=== PATIENT | male | born 1985 | race American Indian/Alaskan Native ===

== ENCOUNTER 2019-06-21 22:58 | Emergency (ER) | payer SELFPAY ==
[2019-06-21 23:14] VITALS: BP 144/79
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
== END 2019-06-22 02:21 | disposition home or self-care (01) ==
LOC: ED 22:58
DX: H10.9 Unspecified conjunctivitis (principal); Z79.899 Other long term (current) drug therapy

== ENCOUNTER 2020-01-01 18:40 | Emergency (ER) | payer SELFPAY ==
[2020-01-01] MEDS ORDERED: ACETAMINOPHEN 500 MG TAB PO ONE (19:30)
[2020-01-01] MEDS ORDERED: DIPHtheria,PERTUSSIS(ACELL),TETANUS VACCINE/PF 0.5 ML VIAL IM ONE (19:30)
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
[2020-01-01 22:23] VITALS: BP 120/66
== END 2020-01-01 22:33 | disposition home or self-care (01) ==
LOC: ED 18:40
DX: S01.01XA Laceration without foreign body of scalp, initial encounter (principal); S60.511A Abrasion of right hand, initial encounter; X99.8XXA Assault by other sharp object, initial encounter; Y93.89 Activity, other specified; Y92.89 Other specified places as the place of occurrence of the external cause; Y99.8 Other external cause status
CPT/HCPCS: 70450; 90471; 90715

== ENCOUNTER 2020-01-15 02:17 | Emergency (ER) | payer SELFPAY ==
[2020-01-15 02:32] VITALS: BP 164/62
--- NOTE | 2020-01-15 04:56 | Emergency Department Report ---
Suture/Staple Removal - [facility] Chief Complaint: Laceration/Recheck/Suture Stated Complaint: STAPLE REMOVAL Time Seen by Provider: 01/15/20 04:51 Wound Location: Patient presents for frontal scalp staple removal x3 , placed 13 dayS ago ED Review of Systems ROS: Stated complaint: STAPLE REMOVAL Other details as noted in HPI Constitutional: denies: chills, fever Eyes: denies: eye pain, eye discharge, vision change ENT: denies: ear pain, throat pain Respiratory: denies: cough, shortness of breath, wheezing Cardiovascular: denies: chest pain, palpitations Endocrine: no symptoms reported Gastrointestinal: denies: abdominal pain, nausea, diarrhea Genitourinary: denies: urgency, dysuria Musculoskeletal: denies: back pain, joint swelling, arthralgia Skin: other (nadeem intact x 3 front scalp ) Neurological: denies: headache, weakness, paresthesias Psychiatric: denies: anxiety, depression Hematological/Lymphatic: denies: easy bleeding, easy bruising ED Past Medical Hx - Past Medical History Previous Medical History?: Yes Additional medical history: Morbid Obesity - Surgical History Past Surgical History?: No - Social History Smoking Status: Never Smoker Substance Use Type: Marijuana - Medications Home Medications: Home Medications Medication Instructions Recorded Confirmed Last Taken Type Ketotifen Fumarate [Zaditor] 2 drop OP BID PRN #5 ml 06/22/19 Unknown Rx Polymyxin B Sulf/Trimethoprim 2 drop OP Q3H 10 Days #10 ml 06/22/19 Unknown Rx [Polytrim Eye Drops] Ibuprofen [Motrin 800 MG tab] 800 mg PO Q8HR PRN #20 tablet 01/01/20 Unknown Rx cephALEXin [Keflex] 500 mg PO Q12HR #20 cap 01/01/20 Unknown Rx Suture Removal Exam - Exam General: Vital signs noted. No distress. Alert and acting appropriately. Wound: No Pathologic Erythema, No Tenderness, No Drainage, No Pus, No Wound Dehiscence Other Systems: All other systems reviewed and are unremarkable. ED Course Vital Signs 01/15/20 02:21 Temperature 98.0 F Pulse Rate 81 Respiratory 18 Rate Blood Pressure 164/62 O2 Sat by Pulse 92 Oximetry ED Recheck MDM - Medical Decision Making sutures removed x 3 intact, wound healed , edges well approximated, no symptoms of infection, pt given site care instructions, will follow up with pcp as needed, pt dc'd to home in stable condition at this time. Critical care attestation.: If time is entered above; I have spent that time in minutes in the direct care of this critically ill patient, excluding procedure time. ED Disposition Clinical Impression: Removal of staple Disposition: DC-01 TO HOME OR SELFCARE Is pt being admited?: No Does the pt Need Aspirin: No Condition: Stable Instructions: Suture Removal (ED) Referrals: MEL PHELPS MD [Primary Care Provider] - 3-5 Days Forms: Work/School Release Form(ED) Time of Disposition: 04:56
== END 2020-01-15 05:09 | disposition home or self-care (01) ==
LOC: ED 02:17
DX: T14.8XXD Other injury of unspecified body region, subsequent encounter (principal); Z48.02 Encounter for removal of sutures

== ENCOUNTER 2020-02-25 21:01 | Emergency (ER) | payer SELFPAY ==
[2020-02-25 21:12] VITALS: BP 146/89
[2020-02-25] MEDS ORDERED: IBUPROFEN 800 MG TAB PO ONE (22:15)
--- NOTE | 2020-02-26 00:12 | Vascular Lab Report ---
DUPLEX DOPPLER LOWER EXTREMITY VEINS, BILATERAL INDICATION / CLINICAL INFORMATION: Bilateral lower extremity pain and swelling. TECHNIQUE: Duplex doppler imaging was performed through the veins of both lower extremities using venous isacc yuly and other maneuvers. COMPARISON: None available. FINDINGS: RIGHT COMMON FEMORAL VEIN: Negative. RIGHT FEMORAL VEIN: Negative. RIGHT POPLITEAL VEIN: Negative. RIGHT CALF VEINS: Negative. LEFT COMMON FEMORAL VEIN: Negative. LEFT FEMORAL VEIN: Negative. LEFT POPLITEAL VEIN: Negative. LEFT CALF VEINS: Negative. ADDITIONAL FINDINGS: None. IMPRESSION: 1. No sonographic evidence for DVT in either lower extremity. Signer Name: Shaun Arcos MD FACR Signed: 02/26/2020 12:07 AM Workstation Name: [id number]
[2020-02-26] MEDS ORDERED: predniSONE 20 MG TAB PO ONE (00:40)
[2020-02-26] MEDS ORDERED: CYCLOBENZAPRINE 10 MG TAB PO ONE (00:40)
--- NOTE | 2020-02-26 00:51 | Emergency Department Report ---
ED Extremity Problem HPI - General Chief complaint: Extremity Injury, Lower Stated complaint: RT LEG PAIN Source: patient Mode of arrival: Ambulatory Limitations: No Limitations - History of Present Illness Initial comments: Patient is a 34-year-old -Nigerien male with a history of morbid obesity who presents to the ED with complaint of acute onset persistent nontraumatic bilateral lower extremity pain, mild swelling and spasms for the last 3 days. Patient states that he is unable to sleep because of worsening bilateral lower extremities spasms and pain. Patient denies fall, traumatic injury, chest pain, shortness of breath, nausea, vomiting, dizziness, syncope, low back pain, heavy lifting, fever and chills. MD Complaint: extremity pain (bilateral lower extremity pain), extremity swelling (Bilateral lower extremity swelling) -: Sudden, days(s) (3) Location: bilateral lower extremity -: Yes myalgia, Yes arthralgia, No fever, No associated dyspnea, No associated chest pain Severity scale (0 -10): 7 Quality: aching, sharp Consistency: constant Improves with: nothing Worsens with: weight bearing, walking, exertion, palpation Associated Symptoms: denies other symptoms, myalgias. denies: chest pain, arthralgias - Related Data Previous Rx's Medication Instructions Recorded Last Taken Type Ketotifen Fumarate [Zaditor] 2 drop OP BID PRN #5 ml 06/22/19 Unknown Rx Polymyxin B Sulf/Trimethoprim 2 drop OP Q3H 10 Days #10 ml 06/22/19 Unknown Rx [Polytrim Eye Drops] cephALEXin [Keflex] 500 mg PO Q12HR #20 cap 01/01/20 Unknown Rx Ibuprofen [Motrin 800 MG tab] 800 mg PO Q8HR PRN #20 tablet 02/26/20 Unknown Rx methOCARBAMOL [Robaxin TAB] 750 mg PO Q8H PRN #30 tablet 02/26/20 Unknown Rx Allergies Allergy/AdvReac Type Severity Reaction Status Date / Time No Known Allergies Allergy Unverified 06/21/19 23:01 ED Review of Systems ROS: Stated complaint: RT LEG PAIN Other details as noted in HPI Constitutional: denies: chills, fever Eyes: denies: eye pain, eye discharge, vision change ENT: denies: ear pain, throat pain Respiratory: denies: cough, shortness of breath, wheezing Cardiovascular: denies: chest pain, palpitations Endocrine: no symptoms reported Gastrointestinal: denies: abdominal pain, nausea, diarrhea Genitourinary: denies: urgency, dysuria Musculoskeletal: joint swelling (Bilateral lower extremity mild swelling), arthralgia (Bilateral lower extremity pain). denies: back pain Skin: denies: rash, lesions Neurological: denies: headache, weakness, paresthesias Psychiatric: denies: anxiety, depression Hematological/Lymphatic: denies: easy bleeding, easy bruising ED Past Medical Hx - Past Medical History Previous Medical History?: Yes Additional medical history: Morbid Obesity - Surgical History Past Surgical History?: No - Social History Smoking Status: Never Smoker Substance Use Type: Marijuana - Medications Home Medications: Home Medications Medication Instructions Recorded Confirmed Last Taken Type Ketotifen Fumarate [Zaditor] 2 drop OP BID PRN #5 ml 06/22/19 Unknown Rx Polymyxin B Sulf/Trimethoprim 2 drop OP Q3H 10 Days #10 ml 06/22/19 Unknown Rx [Polytrim Eye Drops] cephALEXin [Keflex] 500 mg PO Q12HR #20 cap 01/01/20 Unknown Rx Ibuprofen [Motrin 800 MG tab] 800 mg PO Q8HR PRN #20 tablet 02/26/20 Unknown Rx methOCARBAMOL [Robaxin TAB] 750 mg PO Q8H PRN #30 tablet 02/26/20 Unknown Rx ED Physical Exam - General Limitations: No Limitations General appearance: alert, in no apparent distress - Head Head exam: Present: atraumatic, normocephalic, normal inspection - Eye Eye exam: Present: normal appearance, PERRL, EOMI Pupils: Present: normal accommodation - ENT ENT exam: Present: normal exam, normal orophraynx, mucous membranes moist, TM's normal bilaterally, normal external ear exam - Neck Neck exam: Present: normal inspection, full ROM. Absent: tenderness, lymphadenopathy - Respiratory Respiratory exam: Present: normal lung sounds bilaterally. Absent: respiratory distress, wheezes, rales, rhonchi, chest wall tenderness, accessory muscle use, prolonged expiratory - Cardiovascular Cardiovascular Exam: Present: regular rate, normal rhythm, normal heart sounds. Absent: systolic murmur, diastolic murmur, rubs, gallop - GI/Abdominal GI/Abdominal exam: Present: soft, normal bowel sounds. Absent: tenderness, guarding, rebound, hyperactive bowel sounds, hypoactive bowel sounds, organomegaly - Extremities Exam Extremities exam: Present: normal inspection, full ROM, tenderness (Palpable severe bilateral posterior calf tenderness with mild swelling and palpable diffuse varicose veins), normal capillary refill, calf tenderness (Bilateral calf tenderness). Absent: pedal edema, joint swelling - Back Exam Back exam: Present: normal inspection, full ROM. Absent: tenderness, CVA tenderness (R), CVA tenderness (L), muscle spasm, paraspinal tenderness, alonso tebral tenderness - Neurological Exam Neurological exam: Present: alert, oriented X3, CN II-XII intact, normal gait, reflexes normal - Psychiatric Psychiatric exam: Present: normal affect, normal mood, anxious - Skin Skin exam: Present: warm, dry, intact, normal color. Absent: rash ED Course Vital Signs 02/25/20 21:11 Temperature 98.2 F Pulse Rate 87 Respiratory 18 Rate Blood Pressure 146/89 O2 Sat by Pulse 91 Oximetry ED Medical Decision Making - Lab Data Result diagrams: 02/26/20 01:03 02/26/20 01:03 - Radiology Data Radiology results: report reviewed, image reviewed Findings [place] [id number] Vascular Lab Report Signed Patient: MRECEDES ABBASI R#: [id number] : 1985 Acct:[id number] Age/Sex: 34 / M ADM Date: 02/25/20 Loc: ED Attending Dr: Ordering Physician: EMIGDIO ROUSSEAU Date of Service: 02/25/20 Procedure(s): VL venous duplex LE BILAT Accession Number(s): [id number] cc: EMIGDIO ROUSSEAU DUPLEX DOPPLER LOWER EXTREMITY VEINS, BILATERAL INDICATION / CLINICAL INFORMATION: Bilateral lower extremity pain and swelling. TECHNIQUE: Duplex doppler imaging was performed through the veins of both lower extremities using venous compression and other maneuvers. COMPARISON: None available. FINDINGS: RIGHT COMMON FEMORAL VEIN: Negative. RIGHT FEMORAL VEIN: Negative. RIGHT POPLITEAL VEIN: Negative. RIGHT CALF VEINS: Negative. LEFT COMMON FEMORAL VEIN: Negative. LEFT FEMORAL VEIN: Negative. LEFT POPLITEAL VEIN: Negative. LEFT CALF VEINS: Negative. ADDITIONAL FINDINGS: None. IMPRESSION: 1. No sonographic evidence for DVT in either lower extremity. Signer Name: Shaun Arcos MD FACR Signed: 02/26/2020 12:07 AM Workstation Name: [email or web address] Transcribed By: MS Dictated By: Shaun Arcos MD Electronically Authenticated By: Shaun Arcos MD Signed Date/Time: 02/26/206 DD/ TD/TT: - Medical Decision Making This is a 34-year-old -N[place]ien male with a history of morbid obesity who presents to the ED with complaint of acute onset persistent nontraumatic bilateral lower extremity pain, mild swelling and spasms for the last 3 days. Patient states that he is unable to sleep because of worsening bilateral lower extremities spasms and pain. In the ED, patient is alert and oriented x3 and is not in distress but appears to be in pain. Patient was treated for pain in the ED and bilateral lower extremity Doppler ultrasound shows no sonographic evidence of DVT. Lab test results were reviewed and are all nonactionable. On reevaluation, patient's pain is well controlled with medication. Patient was discharged home on pain medications and muscle relaxants and was advised to follow-up with his primary care physician in 5 to 7 days for reevaluation or return to the ED immediately if symptoms get worse. - Differential Diagnosis DVT; Varicose veins; Muscle spasm; Muscle strain Critical care attestation.: If time is entered above; I have spent that time in minutes in the direct care of this critically ill patient, excluding procedure time. ED Disposition Clinical Impression: Varicose veins of bilateral lower extremities with pain, Muscle spasm of both lower legs, Strain of muscle of posterior lower leg Disposition: -01 TO HOME OR SELFCARE Is pt being admited?: No Does the pt Need Aspirin: No Condition: Stable Instructions: Muscle Strain (ED), Varicose Veins (ED), Muscle Spasm (ED) Additional Instructions: Follow-up test results are unremarkable, and lower extremity Doppler ultrasound also shows no evidence of DVT. Therefore take pain medications and muscle relaxants with food, drink plenty fluids and follow-up with your primary care physician in 5 to 7 days for reevaluation or return to the ED immediately if symptoms get worse. Prescriptions: Ibuprofen [Motrin 800 MG tab] 800 mg PO Q8HR PRN #20 tablet PRN Reason: pain methOCARBAMOL [Robaxin TAB] 750 mg PO Q8H PRN #30 tablet PRN Reason: Muscle Spasm Referrals: [facility] [Provider Group] - 3-5 Days Time of Disposition: 02:26 Print Language: ISRAELI
[2020-02-26 01:38] LABS: Basophils # (Auto) 0.1 K/mm3 (0.0-0.1); Basophils % (Auto) 0.8 % (0.0-1.8); Eosinophils # (Auto) 0.3 K/mm3 (0.0-0.4); Eosinophils % (Auto) 4.6 % (0.0-4.3); Hematocrit 42.5 % (35.5-45.6); Lymphocytes # (Auto) 2.1 K/mm3 (1.2-5.4); Lymphocytes % (Auto) 32.4 % (13.4-35.0); Mean Corpuscular HGB Conc 33 % (32-34); Mean Corpuscular Volume 96 fl (84-94); Monocytes # (Auto) 0.6 K/mm3 (0.0-0.8); Platelet Count 161 K/mm3 (140-440); Red Blood Count 4.44 M/mm3 (3.65-5.03); Red Cell Distribution Width 14.5 % (13.2-15.2)
[2020-02-26 02:04] LABS: Alanine Aminotransferase 17 units/L (7-56); Albumin 3.8 g/dL (3.9-5); BUN/Creatinine Ratio 16; Blood Urea Nitrogen 14 mg/dL (9-20); Calcium 9.6 mg/dL (8.4-10.2); Hemolysis Index 44
== END 2020-02-26 02:35 | disposition home or self-care (01) ==
LOC: ED 21:01
DX: S86.812A Strain of other muscle(s) and tendon(s) at lower leg level, left leg, initial encounter (principal); I83.93 Asymptomatic varicose veins of bilateral lower extremities; F12.10 Cannabis abuse, uncomplicated; Z79.899 Other long term (current) drug therapy; X58.XXXA Exposure to other specified factors, initial encounter; Y93.89 Activity, other specified; Y92.89 Other specified places as the place of occurrence of the external cause; Y99.8 Other external cause status
CPT/HCPCS: 36415; 80053; 85025; 93970; J7512

== ENCOUNTER 2020-12-26 17:07 | Emergency (ER) | payer SELFPAY ==
[2020-12-26] MEDS ORDERED: ASPIRIN 325 MG TAB PO ONE (17:40)
[2020-12-26 17:42] VITALS: BP 142/74
--- NOTE | 2020-12-26 17:42 | Event Note ---
ED Screening Note Date of service: 12/26/20 Time: 17:39 ED Screening Note: 35-year-old morbidly obese male with a past history of DVT which was diagnosed last year presents to the ER today with complaints of swelling to both his legs as well as left-sided chest pain and shortness of breath which started about a week ago. Patient states he was on Eliquis after being diagnosed with the DVT but he was only on it for about 3 months. Patient denies any other significant past history This initial assessment/diagnostic orders/clinical plan/treatment(s) is/are subject to change based on patients health status, clinical progression and re- assessment by fellow clinical providers in the ED. Further treatment and workup at subsequent clinical providers discretion. Patient/guardian urged not to elope from the ED as their condition may be serious if not clinically assessed and managed. Initial orders include: Chest pain order set including CTA chest and venous Dopplers
[2020-12-26 18:11] LABS: Basophils % (Auto) 0.6 % (0.0-1.8); Eosinophils # (Auto) 0.1 K/mm3 (0.0-0.4); Eosinophils % (Auto) 1.6 % (0.0-4.3); Hematocrit 42.9 % (35.5-45.6); Hemoglobin 14.1 gm/dl (11.8-15.2); Lymphocytes # (Auto) 1.5 K/mm3 (1.2-5.4); Mean Corpuscular HGB Conc 33 % (32-34); Mean Corpuscular Volume 98 fl (84-94); Monocytes # (Auto) 0.5 K/mm3 (0.0-0.8); Monocytes % (Auto) 8.2 % (0.0-7.3); Platelet Count 160 K/mm3 (140-440); Red Cell Distribution Width 15.2 % (13.2-15.2)
[2020-12-26 18:21] LABS: INR 0.98 (0.87-1.13)
[2020-12-26 18:22] LABS: Partial Thromboplastin Time 27.2 Sec. (24.2-36.6)
[2020-12-26 18:29] LABS: Alanine Aminotransferase 36 units/L (7-56); Albumin 4.1 g/dL (3.9-5); BUN/Creatinine Ratio 14; Blood Urea Nitrogen 11 mg/dL (9-20); Calcium 9.4 mg/dL (8.4-10.2); Hemolysis Index 11
--- NOTE | 2020-12-26 19:33 | Vascular Lab Report ---
DUPLEX DOPPLER LOWER EXTREMITY VEINS, BILATERAL INDICATION / CLINICAL INFORMATION: Bilateral lower leg swelling/history of DVT. TECHNIQUE: Duplex doppler imaging was performed through the veins of both lower extremities using venous isacc yuly and other maneuvers. COMPARISON: None available. FINDINGS: RIGHT COMMON FEMORAL VEIN: Negative. RIGHT FEMORAL VEIN: Negative. RIGHT POPLITEAL VEIN: Negative. RIGHT CALF VEINS: Negative. LEFT COMMON FEMORAL VEIN: Negative. LEFT FEMORAL VEIN: Negative. LEFT POPLITEAL VEIN: Negative. LEFT CALF VEINS: Negative. ADDITIONAL FINDINGS: None. IMPRESSION: 1. No sonographic evidence for DVT in either lower extremity. Signer Name: Seth Meléndez MD Signed: 12/26/2020 7:28 PM Workstation Name: [id number]
[2020-12-26] MEDS ORDERED: HYDROcodone/ACETAMINOPHEN 5-325 MG TAB PO ONE (20:08)
--- NOTE | 2020-12-26 20:08 | Emergency Department Report ---
ED General Adult HPI - General Chief complaint: Chest Pain Stated complaint: CHEST PAIN, LEG SWELLING, BACK OF ARM HURTING Time Seen by Provider: 12/26/20 19:31 Source: patient Mode of arrival: Ambulatory Limitations: No Limitations - History of Present Illness Initial comments: Pt is [id number] morbidly obese male with history of DVT, 1 yr ago, who co mplaints of swelling to both his legs as well as left-sided chest pain and shortness of breath which started about a week ago. Patient states he was on Eliquis after being diagnosed with the DVT but he was only on it for about 3 months. Pt denies N/V, no Diaphoresis, no lightheadedness, no no fever or chills, no cough, no hemoptysis, no suspicious travel. pt pain is rated at 4/10 at this time, pain is exacerbated by movement pain is relieved by nothing tried. Severity scale (0 -10): 5 - Related Data Previous Rx's Medication Instructions Recorded Last Taken Type Ketotifen Fumarate [Zaditor] 2 drop OP BID PRN #5 ml 06/22/19 Unknown Rx Polymyxin B Sulf/Trimethoprim 2 drop OP Q3H 10 Days #10 ml 06/22/19 Unknown Rx [Polytrim Eye Drops] cephALEXin [Keflex] 500 mg PO Q12HR #20 cap 01/01/20 Unknown Rx Ibuprofen [Motrin 800 MG tab] 800 mg PO Q8HR PRN #20 tablet 02/26/20 Unknown Rx methOCARBAMOL [Robaxin TAB] 750 mg PO Q8H PRN #30 tablet 02/26/20 Unknown Rx Acetaminophen/Codeine [Tylenol 1 tab PO Q6H PRN #12 tab 12/26/20 Unknown Rx /Codeine # 3 tab] Allergies Allergy/AdvReac Type Severity Reaction Status Date / Time No Known Allergies Allergy Unverified 06/21/19 23:01 ED Review of Systems ROS: Stated complaint: CHEST PAIN, LEG SWELLING, BACK OF ARM HURTING Other details as noted in HPI Constitutional: denies: chills, fever Eyes: denies: eye pain, eye discharge, vision change ENT: denies: ear pain, throat pain Respiratory: denies: cough, shortness of breath, wheezing Cardiovascular: chest pain. denies: palpitations, dyspnea on exertion, orthopnea, edema, syncope, paroxysmal nocturnal dyspnea Endocrine: no symptoms reported Gastrointestinal: denies: abdominal pain, nausea, vomiting, diarrhea Genitourinary: denies: urgency, dysuria Musculoskeletal: back pain, myalgia, other (bilat le pain ) Skin: as per HPI Neurological: denies: headache Psychiatric: denies: anxiety, depression Hematological/Lymphatic: denies: easy bleeding, easy bruising ED Past Medical Hx - Past Medical History Hx Deep Vein Thrombosis: Yes Additional medical history: Morbid Obesity - Social History Smoking Status: Never Smoker Substance Use Type: Marijuana - Medications Home Medications: Home Medications Medication Instructions Recorded Confirmed Last Taken Type Ketotifen Fumarate [Zaditor] 2 drop OP BID PRN #5 ml 06/22/19 Unknown Rx Polymyxin B Sulf/Trimethoprim 2 drop OP Q3H 10 Days #10 ml 06/22/19 Unknown Rx [Polytrim Eye Drops] cephALEXin [Keflex] 500 mg PO Q12HR #20 cap 01/01/20 Unknown Rx Ibuprofen [Motrin 800 MG tab] 800 mg PO Q8HR PRN #20 tablet 02/26/20 Unknown Rx methOCARBAMOL [Robaxin TAB] 750 mg PO Q8H PRN #30 tablet 02/26/20 Unknown Rx Acetaminophen/Codeine [Tylenol 1 tab PO Q6H PRN #12 tab 12/26/20 Unknown Rx /Codeine # 3 tab] ED Physical Exam - General Limitations: No Limitations General appearance: alert, in no apparent distress - Head Head exam: Present: atraumatic, normocephalic - Eye Eye exam: Present: normal appearance, EOMI Pupils: Present: normal accommodation - ENT ENT exam: Present: mucous membranes moist - Neck Neck exam: Present: normal inspection, full ROM. Absent: tenderness - Respiratory Respiratory exam: Present: normal lung sounds bilaterally. Absent: respiratory distress, wheezes, rales, rhonchi, stridor, chest wall tenderness - Cardiovascular Cardiovascular Exam: Present: regular rate, normal rhythm, normal heart sounds. Absent: systolic murmur, diastolic murmur, rubs, gallop - GI/Abdominal GI/Abdominal exam: Present: soft, normal bowel sounds. Absent: distended, tenderness - Rectal Rectal exam: Present: deferred - Extremities Exam Extremities exam: Present: normal inspection, full ROM, normal capillary refill. Absent: tenderness, pedal edema, calf tenderness - Back Exam Back exam: Present: normal inspection, full ROM. Absent: CVA tenderness (R), CVA tenderness (L) - Neurological Exam Neurological exam: Present: alert, oriented X3, CN II-XII intact, normal gait, reflexes normal. Absent: motor sensory deficit - Expanded Neurological Exam Expanded Patient oriented to: Present: person, place, time Speech: Present: fluid speech Motor strength exam: RUE: 5, LUE: 5, RLE: 5, LLE: 5 Best Eye Response ([place]): (4) open spontaneously Best Motor Response ([place]): (6) obeys commands Best Verbal Response ([place]): (5) oriented [place] Total: 15 - Psychiatric Psychiatric exam: Present: normal affect - Skin Skin exam: Present: warm, dry, intact, normal color. Absent: rash ED Course Vital Signs 12/26/20 17:37 Temperature 98.3 F Pulse Rate 81 Respiratory 18 Rate Blood Pressure 142/74 [Right] O2 Sat by Pulse 95 Oximetry ED Medical Decision Making - Lab Data Result diagrams: 12/26/20 17:51 12/26/20 17:51 - EKG Data EKG shows normal: sinus rhythm, axis, intervals, QRS complexes, ST-T waves Rate: normal - EKG Data When compared to previous EKG there are: previous EKG unavailable Interpretation: normal EKG (NSR, No ST Elevated RI , Interp by ED attending ) - Radiology Data Radiology results: report reviewed, image reviewed DUPLEX DOPPLER LOWER EXTREMITY VEINS, BILATERAL INDICATION / CLINICAL INFORMATION: Bilateral lower leg swelling/history of DVT. TECHNIQUE: Duplex doppler imaging was performed through the veins of both lower extremities using venous compression and other maneuvers. COMPARISON: None available. FINDINGS: RIGHT COMMON FEMORAL VEIN: Negative. RIGHT FEMORAL VEIN: Negative. RIGHT POPLITEAL VEIN: Negative. RIGHT CALF VEINS: Negative. LEFT COMMON FEMORAL VEIN: Negative. LEFT FEMORAL VEIN: Negative. LEFT POPLITEAL VEIN: Negative. LEFT CALF VEINS: Negative. ADDITIONAL FINDINGS: None. IMPRESSION: 1. No sonographic evidence for DVT in either lower extremity. Signer Name: Seth Meléndez MD Signed: 12/26/2020 7:28 PM Workstation Name: [id number] Transcribed By: DIEGO Dictated By: Seth Meléndez MD Electronically Authenticated By: Seth Meléndez MD Signed Date/Time: 12/26/201927 DD/ 27 TD/TT: CTA CHEST WITH IV CONTRAST INDICATION / CLINICAL INFORMATION: Chest pain/shortness of breath/history of DVT 100ML 300 OMNIPAQUE. TECHNIQUE: Axial CT images were obtained through the chest after injection of 100 cc Omnipaque 300 mg percent IV contrast. 3 plane MIP and/or 3D reconstructions were produced. All CT scans at this location are performed using CT dose reduction for ALARA by means of automated exposure control. COMPARISON: None available. FINDINGS: PULMONARY ARTERIES: No pulmonary emboli. THORACIC AORTA: No significant abnormality. HEART: No significant abnormality. CORONARY ARTERIES: No significant calcification. PLEURA: No pleural effusion. No pneumothorax. LYMPH NODES: No significant adenopathy. LUNGS: No acute air space or interstitial disease. ADDITIONAL FINDINGS: None. UPPER ABDOMEN: No acute findings. SKELETAL STRUCTURES: No significant osseous abnormality. IMPRESSION: 1. No CT evidence for pulmonary embolism. 2. No acute findings. Signer Name: Seth Meléndez MD Signed: 12/26/2020 8:38 PM Workstation Name: [id number] Transcribed By: DIEGO Dictated By: Seth Meléndez MD Electronically Authenticated By: Seth Meléndez MD Signed Date/Time: 12/26/202037 DD/ 34 TD/TT: CHEST 2 VIEWS INDICATION: Chest Pain. COMPARISON: FINDINGS: Support devices: None. Heart: Within normal limits. Lungs: No acute air space or interstitial disease. Pleura: No significant pleural effusion. No pneumothorax. Additional findings: None. IMPRESSION: 1. No acute findings. Signer Name: Seth Meléndez MD Signed: 12/26/2020 8:38 PM Workstation Name: [id number] Transcribed By: DIEGO Dictated By: Seth Meléndez MD Electronically Authenticated By: Seth Meléndez MD Signed Date/Time: 12/26/202037 DD/ 37 TD/TT: - Medical Decision Making PERC scor PE: 1, low risk, Wells score: 4.5: Low risk PE CTA normal no no PE, chest x-ray normal no infiltrates no opacities, bilateral lower extremity Doppler no DVT normal, labs normal, EKG normal sinus rhythm no ST elevated RI EKG interpreted by ED attending. All labs normal, this is likely musculoskeletal pain plan NSAIDs as needed pain, follow-up primary care doctor in 2 to 3 days. Patient will return to ED should symptoms worsen. Patient verbalized agreement and understanding discharge plan. Patient is alert oriented x3 amatory steady gait at this time patient DC'd to self. Sign Critical care attestation.: If time is entered above; I have spent that time in minutes in the direct care of this critically ill patient, excluding procedure time. ED Disposition Clinical Impression: Chest pain Qualifiers: Chest pain type: unspecified Qualified Code(s): R07.9 - Chest pain, unspecified Musculoskeletal pain of lower extremity Qualifiers: Laterality: unspecified laterality Qualified Code(s): M79.606 - Pain in leg, unspecified Disposition: DC-01 TO HOME OR SELFCARE Is pt being admited?: No Does the pt Need Aspirin: No Condition: Stable Instructions: Nonspecific Chest Pain, Adult, Musculoskeletal Pain Additional Instructions: take medications as prescribed, follow up with your doctor in 2-3 days, return to emergency if symptoms worsen Prescriptions: Acetaminophen/Codeine [Tylenol /Codeine # 3 tab] 1 tab PO Q6H PRN #12 tab PRN Reason: pain Referrals: KENNEDY BOUCHER MD [Staff Physician] - 3-5 Days Forms: Work/School Release Form(ED) Time of Disposition: 21:12
--- NOTE | 2020-12-26 20:43 | Cat Scan Report ---
CTA CHEST WITH IV CONTRAST INDICATION / CLINICAL INFORMATION: Chest pain/shortness of breath/history of DVT 100ML 300 OMNIPAQUE. TECHNIQUE: Axial CT images were obtained through the chest after injection of 100 cc Omnipaque 300 mg percent I V contrast. 3 plane MIP and/or 3D reconstructions were produced. All CT scans at this location are pe rformed using CT dose reduction for ALARA by means of automated exposure control. COMPARISON: None available. FINDINGS: PULMONARY ARTERIES: No pulmonary emboli. THORACIC AORTA: No significant abnormality. HEART: No significant abnormality. CORONARY ARTERIES: No significant calcification. PLEURA: No pleural effusion. No pneumothorax. LYMPH NODES: No significant adenopathy. LUNGS: No acute air space or interstitial disease. ADDITIONAL FINDINGS: None. UPPER ABDOMEN: No acute findings. SKELETAL STRUCTURES: No significant osseous abnormality. IMPRESSION: 1. No CT evidence for pulmonary embolism. 2. No acute findings. Signer Name: Seth Meléndez MD Signed: 12/26/2020 8:38 PM Workstation Name: [id number]
--- NOTE | 2020-12-26 20:43 | XRay Report ---
CHEST 2 VIEWS INDICATION: Chest Pain. COMPARISON: FINDINGS: Support devices: None. Heart: Within normal limits. Lungs: No acute air space or interstitial disease. Pleura: No significant pleural effusion. No pneumothorax. Additional findings: None. IMPRESSION: 1. No acute findings. Signer Name: Seth Meléndez MD Signed: 12/26/2020 8:38 PM Workstation Name: [id number]
--- NOTE | 2021-01-04 10:46 | Electrocardiograph Report ---
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
== END 2020-12-26 21:50 | disposition home or self-care (01) ==
LOC: ED 17:07
DX: R07.89 Other chest pain (principal); R06.02 Shortness of breath; M79.605 Pain in left leg; M79.604 Pain in right leg; Z79.899 Other long term (current) drug therapy
CPT/HCPCS: 36415; 71046; 71275; 80053; 83690; 83880; 84484; 85025; 85610; 85730; 93005; 93970; 99284; Q9967

== ENCOUNTER 2021-05-06 21:42 | Emergency (ER) | payer SELFPAY ==
[2021-05-06 22:28] VITALS: BP 141/73
--- NOTE | 2021-05-06 22:55 | Emergency Department Report ---
ED General Adult HPI - General Chief complaint: Extremity Injury, Lower Stated complaint: BACK/KNEE INJURY Time Seen by Provider: 05/06/21 22:33 Source: patient Mode of arrival: Ambulatory Limitations: No Limitations - History of Present Illness Initial comments: 35-year-old male patient with history of BMI > 48 presents to ED w/ complaints of right hip and right knee pain status post mechanical fall. Patient states he slipped while at a restaurant several hours ago and sustained a ground-level fall, landing on his right side. No head injury or loss of consciousness. Patient has been ambulatory without assistance since the fall. Denies foot pain, ankle pain, paresthesias, numbness, weakness. Denies all other complaints at this time. - Related Data Previous Rx's Medication Instructions Recorded Last Taken Type Ketotifen Fumarate [Zaditor] 2 drop OP BID PRN #5 ml 06/22/19 Unknown Rx Polymyxin B Sulf/Trimethoprim 2 drop OP Q3H 10 Days #10 ml 06/22/19 Unknown Rx [Polytrim Eye Drops] cephALEXin [Keflex] 500 mg PO Q12HR #20 cap 01/01/20 Unknown Rx Ibuprofen [Motrin 800 MG tab] 800 mg PO Q8HR PRN #20 tablet 02/26/20 Unknown Rx methOCARBAMOL [Robaxin TAB] 750 mg PO Q8H PRN #30 tablet 02/26/20 Unknown Rx Acetaminophen/Codeine [Tylenol 1 tab PO Q6H PRN #12 tab 12/26/20 Unknown Rx /Codeine # 3 tab] Naproxen 500 mg PO BID #20 tablet 05/06/21 Unknown Rx Allergies Allergy/AdvReac Type Severity Reaction Status Date / Time No Known Allergies Allergy Verified 05/06/21 22:22 ED Review of Systems ROS: Stated complaint: BACK/KNEE INJURY Other details as noted in HPI Other: CARDIOVASCULAR: Negative for chest pain. PULMONARY: Negative for dyspnea. GASTROINTESTINAL: Negative for abdominal pain. MUSCULOSKELETAL: Positive for joint pain. NEUROLOGICAL: Negative for headache. INTEGUMENTARY: Negative for ecchymosis. ED Past Medical Hx - Past Medical History Previous Medical History?: No Hx Deep Vein Thrombosis: Yes Additional medical history: Morbid Obesity - Surgical History Past Surgical History?: No - Social History Smoking Status: Current Every Day Smoker Substance Use Type: Marijuana - Medications Home Medications: Home Medications Medication Instructions Recorded Confirmed Last Taken Type Ketotifen Fumarate [Zaditor] 2 drop OP BID PRN #5 ml 06/22/19 Unknown Rx Polymyxin B Sulf/Trimethoprim 2 drop OP Q3H 10 Days #10 ml 06/22/19 Unknown Rx [Polytrim Eye Drops] cephALEXin [Keflex] 500 mg PO Q12HR #20 cap 01/01/20 Unknown Rx Ibuprofen [Motrin 800 MG tab] 800 mg PO Q8HR PRN #20 tablet 02/26/20 Unknown Rx methOCARBAMOL [Robaxin TAB] 750 mg PO Q8H PRN #30 tablet 02/26/20 Unknown Rx Acetaminophen/Codeine [Tylenol 1 tab PO Q6H PRN #12 tab 12/26/20 Unknown Rx /Codeine # 3 tab] Naproxen 500 mg PO BID #20 tablet 05/06/21 Unknown Rx ED Physical Exam - General Limitations: No Limitations - Other Other exam information: General: Awake, appropriately interactive, no acute distress. Neck: Supple. Full range of motion intact. Cardiovascular: Normal peripheral perfusion. Pulmonary: No respiratory distress. Patient is speaking normally without use of accessory muscles. Skin: No apparent rashes or lesions. Neurological: No facial asymmetry. Speech is clear. Follows commands. Patient is alert and oriented. Musculoskeletal: Right hip and right knee tenderness without obvious deformity or dislocation. No rotational deformity or leg length discrepancy. Distal neurovascular and motor/sensory function intact. Psych: Cooperative. Appropriate mood and affect. ED Course Vital Signs 05/06/21 22:27 Temperature 97.8 F Pulse Rate 83 Respiratory 24 Rate Blood Pressure 141/73 O2 Sat by Pulse 94 Oximetry ED Medical Decision Making - Medical Decision Making Differential diagnosis including but not limited to: sprain, strain, fracture, contusion, dislocation On reevaluation, patient remains stable. Repeat neurovascular exam remains intact. X-rays within normal limits. No clinical indication for further diagnostic work-up on an emergent basis at this time. Patient will be discharged home with appropriate analgesics and referred to primary care provider for close outpatient follow-up. Patient expressed understanding and is agreeable to plan of care. RICE precautions discussed. Strict return precautions provided. Repeat exam is unremarkable and benign. History, exam, diagnostic testing, and current condition do not suggest worrisome pathology to warrant further testing, continued ED treatment, admission, or surgical evaluation at this point. Given the low probability of a significant medical illness, it would be more likely to result in harm than benefit to perform further testing at this stage. Discussed findings, presumptive diagnosis, need for follow-up and specific signs/symptoms that should prompt immediate return to the emergency department. Instructions were explained in detail to the patient in addition to giving written discharge information. Patient expressed understanding and was given the opportunity to ask questions, all of which were satisfactorily answered prior to discharge home. Critical care attestation.: If time is entered above; I have spent that time in minutes in the direct care of this critically ill patient, excluding procedure time. ED Disposition Clinical Impression: Contusion of right hip, initial encounter, Contusion of right knee, initial encounter Disposition: HOME / SELF CARE / HOMELESS Is pt being admited?: No Does the pt Need Aspirin: No Condition: Stable Instructions: Contusion, [id number] Additional Instructions: X-rays are normal. Take Tylenol every 4 hours as needed for pain. Take Naprosyn twice daily with food as needed for pain. Apply ice to affected area as needed for pain. Gradually advance physical activity slowly as tolerated. Follow-up with primary care provider this week. Call tomorrow to schedule an appointment. Return to the emergency department immediately for new or worsening symptoms. Prescriptions: Naproxen 500 mg PO BID #20 tablet Referrals: BARRETT MATHIS MD [Staff Physician] - 3-5 Days Time of Disposition: 23:40
--- NOTE | 2021-05-06 23:33 | XRay Report ---
RIGHT HIP 2 VIEW(S) INDICATION / CLINICAL INFORMATION: ground level fall COMPARISON: None available. FINDINGS: BONES / JOINT(S): No acute fracture or subluxation. No significant arthritis. SOFT TISSUES: No significant abnormality. ADDITIONAL FINDINGS: None. Signer Name: Mushtaq Garces DO Signed: 05/06/2021 11:29 PM Workstation Name: [id number]
--- NOTE | 2021-05-06 23:35 | XRay Report ---
RIGHT KNEE 3 VIEW(S) INDICATION / CLINICAL INFORMATION: ground level fall COMPARISON: None available. FINDINGS: BONES / JOINT(S): No acute fracture or subluxation. No significant arthritis. SOFT TISSUES: No significant abnormality. ADDITIONAL FINDINGS: None. Signer Name: Mushtaq Garces DO Signed: 05/06/2021 11:30 PM Workstation Name: [id number]
== END 2021-05-06 23:53 | disposition home or self-care (01) ==
LOC: ED 21:42
DX: S70.01XA Contusion of right hip, initial encounter (principal); S80.01XA Contusion of right knee, initial encounter; F17.200 Nicotine dependence, unspecified, uncomplicated; F12.90 Cannabis use, unspecified, uncomplicated; Z79.899 Other long term (current) drug therapy; W01.0XXA Fall on same level from slipping, tripping and stumbling without subsequent striking against object, initial encounter; Y93.89 Activity, other specified; Y92.89 Other specified places as the place of occurrence of the external cause; Y99.8 Other external cause status
CPT/HCPCS: 99283

== ENCOUNTER 2021-08-08 15:58 | Inpatient (IN) | payer SELFPAY ==
--- NOTE | 2021-08-08 17:56 | Emergency Department Report ---
<ANILA SOTO - Last Filed: 08/08/21 20:13> ED General Adult HPI - General Chief complaint: Weakness Stated complaint: GENERALIZED FATIGUE PUI?: No Source: patient, EMS (Verbal report received from emergency medical services. EMS documentation not available at time of chart dictation ), RN notes reviewed, old records reviewed Mode of arrival: Stretcher Limitations: No Limitations - History of Present Illness Initial comments: The patient was evaluated in the emergency department for symptoms described in the history of present illness. He/she was evaluated in the context of the global COVID-19 pandemic, which necessitated consideration that the patient might be at risk for infection with the virus that causes COVID-19. Institutional protocols and algorithms that pertain to the evaluation of patients at risk for COVID-19 are in a state of rapid change based on information released by regulatory bodies including the CDC and federal and state organizations. These policies and algorithms were followed during the patient's care in the emergency department. Please note that these policies, procedures and recommendations changed on a rapid basis. This patient is a 35-year-old gentleman. He was evaluated in his hospital December 2020, for chest pain and shortness of breath, had a lower extremity DVT study which was negative for acute findings, and a CT angiogram of the chest which was negative for acute findings. He has a history of morbid obesity, with a body mass index of 51.7, and obstructive sleep apnea, and is currently on a CPAP. He reports that his nocturnal CPAP mask has not been working recently, and that he therefore stopped using his CPAP. Earlier on today he was sitting on a couch, and became sleepy, and difficult to arouse, so family called 911 right away. EMS reports the patient was somewhat hypoxic initially, but that the patient responded with vigorous stimulation. Upon arrival to the emergency room, the patient denies all complaints. He states he had pneumonia which was diagnosed in May of last year. However, to me, he denies headache, neck pain, chest pain, abdominal pain, shortness of breath, loss of taste and smell. He also denies DVT and pulmonary embolism risk factors. He states he does not smoke cigarettes anymore. The patient states that he feels like he is at his baseline, and he endorses readiness for discharge at this time. -: This afternoon Severity scale (0 -10): 6 Improves with: other (Deep inspiration. Stimulation.) Worsens with: other (Not using CPAP) Associated Symptoms: denies other symptoms - Related Data Previous Rx's Medication Instructions Recorded Last Taken Type Ketotifen Fumarate [Zaditor] 2 drop OP BID PRN #5 ml 06/22/19 Unknown Rx Polymyxin B Sulf/Trimethoprim 2 drop OP Q3H 10 Days #10 ml 06/22/19 Unknown Rx [Polytrim Eye Drops] cephALEXin [Keflex] 500 mg PO Q12HR #20 cap 01/01/20 Unknown Rx Ibuprofen [Motrin 800 MG tab] 800 mg PO Q8HR PRN #20 tablet 02/26/20 Unknown Rx methOCARBAMOL [Robaxin TAB] 750 mg PO Q8H PRN #30 tablet 02/26/20 Unknown Rx Acetaminophen/Codeine [Tylenol 1 tab PO Q6H PRN #12 tab 12/26/20 Unknown Rx /Codeine # 3 tab] Naproxen 500 mg PO BID #20 tablet 05/06/21 Unknown Rx Allergies Allergy/AdvReac Type Severity Reaction Status Date / Time No Known Allergies Allergy Verified 05/06/21 22:22 ED Review of Systems Comment: All other systems reviewed and negative ED Past Medical Hx - Past Medical History Hx Deep Vein Thrombosis: Yes Additional medical history: Morbid Obesity - Social History Smoking Status: Current Every Day Smoker Substance Use Type: Marijuana - Medications Home Medications: Home Medications Medication Instructions Recorded Confirmed Last Taken Type Ketotifen Fumarate [Zaditor] 2 drop OP BID PRN #5 ml 06/22/19 Unknown Rx Polymyxin B Sulf/Trimethoprim 2 drop OP Q3H 10 Days #10 ml 06/22/19 Unknown Rx [Polytrim Eye Drops] cephALEXin [Keflex] 500 mg PO Q12HR #20 cap 01/01/20 Unknown Rx Ibuprofen [Motrin 800 MG tab] 800 mg PO Q8HR PRN #20 tablet 02/26/20 Unknown Rx methOCARBAMOL [Robaxin TAB] 750 mg PO Q8H PRN #30 tablet 02/26/20 Unknown Rx Acetaminophen/Codeine [Tylenol 1 tab PO Q6H PRN #12 tab 12/26/20 Unknown Rx /Codeine # 3 tab] Naproxen 500 mg PO BID #20 tablet 05/06/21 Unknown Rx ED Physical Exam - General Limitations: No Limitations General appearance: alert, in no apparent distress - Head Head exam: Present: atraumatic, normocephalic - Eye Eye exam: Present: normal appearance, EOMI. Absent: nystagmus - ENT ENT exam: Present: normal exam, normal orophraynx, mucous membranes moist, normal external ear exam - Neck Neck exam: Present: normal inspection, full ROM. Absent: tenderness, menin gismus - Respiratory Respiratory exam: Present: normal lung sounds bilaterally. Absent: respiratory distress, wheezes, rales, rhonchi, stridor, decreased breath sounds - Cardiovascular Cardiovascular Exam: Present: regular rate, normal rhythm, normal heart sounds. Absent: bradycardia, tachycardia, irregular rhythm, systolic murmur, diastolic murmur, rubs, gallop - GI/Abdominal GI/Abdominal exam: Present: soft. Absent: distended, tenderness, guarding, rebound, rigid, pulsatile mass - Rectal Rectal exam: Present: deferred - Extremities Exam Extremities exam: Present: normal inspection, full ROM, other (2+ pulses noted in the bilateral upper and lower extremities. There is no palpable cord. ne gative Homans sign. Muscular compartments are soft. The pelvis is stable.). Absent: calf tenderness - Back Exam Back exam: Present: normal inspection, full ROM. Absent: tenderness, CVA tenderness (R), CVA tenderness (L), paraspinal tenderness, vertebral tenderness - Neurological Exam Neurological exam: Present: alert, oriented X3, normal gait, other (No facial droop. Tongue midline. Extraocular movements intact bilaterally. Facial sensation intact to light touch in V1, V2, V3 distribution bilaterally. 5 and a 5 strength in 4 extremities. Sensation intact to light touch in 4 extremities.). Absent: motor sensory deficit - Psychiatric Psychiatric exam: Present: normal affect, normal mood - Skin Skin exam: Present: warm, dry, intact, normal color. Absent: rash ED Course - Reevaluation(s) Reevaluation #1: 08/08/21 19:15 Differential diagnosis, including but not limited to: Obstructive sleep apnea, obesity hypoventilation syndrome, noncompliance with CPAP Assessment and plan 35-year-old gentleman, who is currently awake, alert, oriented, clinically sobe r, walks with a steady gait, with a GCS of 15. He is not encephalopathic at this time. I personally performed pulse oximetry evaluation on this patient, and he is found to be saturating at 94 to 96%. In addition, his tachycardia has resolved, and his heart rate is currently 85 bpm. Patient counseled that he may purchase an [id number] pulse oximeter from a company such as [employer] or [employer], and self monitor home oxygen. He is also counseled that he should be able to purchase his CPAP supplies on an online supplier, such as [employer]; this provider has done the same for himself. Patient also strongly counseled to exercise and lose weight for his body mass index of 51.7. Patient's mental status continues to be acceptable and appropriate at this time, he is not clinically encephalopathic and he is awake, alert, oriented, speaking on his cellular phone, and in no acute distress Reevaluation #2: 08/08/21 19:16 Change in plans. In the waiting room, the patient had a convulsive event. He was placed immediately on a stretcher, and I immediately reevaluated the patient. The patient's mental status has dramatically changed from his initial ER evaluation. The patient was placed on a scene painter, and brought back to room 20 right away. He had aggressive suctioning, and was placed immediately on a nonrebreather. The patient is awake, but altered, combative, and not of sound mind at this time. This patient is likely delirious from his recent convulsive event. Multiple attempts were made to calm the patient down, verbally, with show of force, and de-escalation techniques. These were unsuccessful. Patient continues to thrash up, pull out his IV, this is likely hypercarbic respiratory failure causing hypercarbic encephalopathy. Decision made to definitively manage the patient's airway for the aforementioned. Patient given 500 mg of ketamine, received positive pressure ventilation, and then received 100 mg of rocuronium, and was intubated by myself with 1 attempt. Please see procedure note. I suspect that the convulsive event is likely secondary to combination of hypoxemic and hypercarbic respiratory failure. Nevertheless, we will obtain appropriate laboratory studies, and CT scan of the brain. Patient will require admission to the ICU for ventilatory support. Discussed with critical care physician on-call. 08/08/21 20:06 08/08/21 20:13 Care be transferred to the oncoming ER physician, to follow-up on CT scan of the brain, and arrange admission to the intensive care unit. - Consultations Consultation #1: 08/08/21 19:28 Discussed the patient's history, physical, laboratory studies, imaging studies, overall plan of care with critical care physician on-call, Dr. Perry She is in agreement with the plan of care, and her group will follow in consultation - Intubation Time Out Performed: No (Emergency situation) Sedative: Ketamine Mg Given: 500 Paralytic: Rocuronium Mg Given: 100 Laryngoscope: fiberoptic video scope Size: 4 Assist Device Used: fiberoptic device ET Tube Size: 7.5 Tube Secured Depth (cm): 23 Tube Secured Location: teeth Tube Placement Confirmation: visualized tube passing t, equal breath sounds bilat, no breath sounds over epi, confirmation by capnometr Patient Tolerated Procedure: well Intubation Complications: none Additional Comments: Patient induced with 500 mg of ketamine, and paralyzed with 100 mg of rocuronium. He receives positive pressure ventilation, and is saturating at 97/98% on positive pressure ventilation. The airways aggressively suctioned, and using a curved S4 video laryngoscopic blade, video laryngoscopy is performed, and a 7.5 endotracheal tube was inserted in the trachea under direct visualization. The patient tolerated the procedure well. ED Medical Decision Making - Lab Data Result diagrams: 08/08/21 19:10 08/08/21 19:10 Vital Signs 08/08/21 16:00 Temperature 98.1 F Pulse Rate 105 H Respiratory 16 Rate Blood Pressure 134/88 [Left] O2 Sat by Pulse 91 Oximetry Lab Results 08/08/21 08/08/21 08/08/21 Range/Units 19:10 19:10 19:16 WBC 8.0 (4.5-11.0) K/mm3 RBC 5.09 H (3.65-5.03) M/mm3 Hgb 15.3 H (11.8-15.2) gm/dl Hct 49.0 H (35.5-45.6) % MCV 96 H (84-94) fl MCH 30 (28-32) pg MCHC 31 L (32-34) % RDW 15.2 (13.2-15.2) % Plt Count 160 (140-440) K/mm3 PT (12.2-14.9) Sec. INR (0.87-1.13) Sodium 136 L (137-145) mmol/L Potassium 3.6 (3.6-5.0) mmol/L Chloride 96.4 L (98-107) mmol/L Carbon Dioxide 26 (22-30) mmol/L Anion Gap 17 mmol/L BUN 10 (9-20) mg/dL Creatinine 0.8 (0.8-1.3) mg/dL Estimated GFR > 60 ml/min BUN/Creatinine Ratio 13 % Glucose 128 H (75-100) mg/dL Calcium 9.5 (8.4-10.2) mg/dL Magnesium 1.80 (1.7-2.3) mg/dL Total Creatine Kinase 275 H (55-170) units/L Acetaminophen (10.0-30.0) ug/mL Plasma/Serum Alcohol < 0.01 (0-0.07) % 08/08/21 08/08/21 Range/Units 19:17 19:26 WBC (4.5-11.0) K/mm3 RBC (3.65-5.03) M/mm3 Hgb (11.8-15.2) gm/dl Hct (35.5-45.6) % MCV (84-94) fl MCH (28-32) pg MCHC (32-34) % RDW (13.2-15.2) % Plt Count (140-440) K/mm3 PT 14.0 (12.2-14.9) Sec. INR 0.97 (0.87-1.13) Sodium (137-145) mmol/L Potassium (3.6-5.0) mmol/L Chloride (98-107) mmol/L Carbon Dioxide (22-30) mmol/L Anion Gap mmol/L BUN (9-20) mg/dL Creatinine (0.8-1.3) mg/dL Estimated GFR ml/min BUN/Creatinine Ratio % Glucose (75-100) mg/dL Calcium (8.4-10.2) mg/dL Magnesium (1.7-2.3) mg/dL Total Creatine Kinase (55-170) units/L Acetaminophen 5.0 L (10.0-30.0) ug/mL Plasma/Serum Alcohol (0-0.07) % - Radiology Data Radiology results: pending, report reviewed, image reviewed interpreted by me: 2 view x-ray of the chest, interpreted by myself, no infiltrate, no pneumothorax. XR chest routine 2V INDICATION / CLINICAL INFORMATION: hx of hypoxia, BRIDGET COMPARISON: 12/26/2020 FINDINGS: SUPPORT DEVICES: None. HEART / MEDIASTINUM: No significant abnormality. LUNGS / PLEURA: Lungs are clear. Costophrenic sulci are sharp. No pneumothorax. ADDITIONAL FINDINGS: No significant additional findings. IMPRESSION: 1. No acute findings. Signer Name: Toi Higgins MD Signed: 08/08/2021 5:34 PM Workstation Name: [id number] XR chest 1V ap INDICATION / CLINICAL INFORMATION: ETT placement COMPARISON: Earlier same day. FINDINGS: SUPPORT DEVICES: low-lying endotracheal tube. HEART / MEDIASTINUM: No significant abnormality. LUNGS / PLEURA: Low lung volumes. Lungs are unchanged. Costophrenic sulci are sharp. No pneumothorax. ADDITIONAL FINDINGS: No significant additional findings. IMPRESSION: 1. Low lying endotracheal tube. Retract 4 cm for more optimal positioning. Signer Name: Toi Higgins MD Signed: 08/08/2021 6:56 PM Workstation Name: [id number] Differential diagnosis, including but not limited to: Obstructive sleep apnea, obesity hypoventilation syndrome, noncompliance with CPAP Critical Care Time: Yes Critical care time in (mins) excluding proc time.: 74 ED Disposition Clinical Impression: Acute hypercapnic respiratory failure, Acute hypoxemic respiratory failure Disposition: 09 ADMITTED INPATIENT Is pt being admited?: Yes Does the pt Need Aspirin: No Condition: Critical Referrals: PRIMARY CARE, [Primary Care Provider] - 3-5 Days <GALE THOMAS - Last Filed: 08/08/21 23:11> ED Review of Systems ROS: Stated complaint: GENERALIZED FATIGUE Other details as noted in HPI ED Course Vital Signs 08/08/21 08/08/21 08/08/21 16:00 19:18 20:48 Temperature 98.1 F Pulse Rate 105 H 135 H 88 Respiratory 16 Rate Blood Pressure 156/109 Blood Pressure 134/88 [Left] O2 Sat by Pulse 91 100 100 Oximetry ED Medical Decision Making - Lab Data Result diagrams: 08/08/21 19:10 08/08/21 19:10 - Medical Decision Making CT brain is negative for acute finding. I discussed the patient with Dr. Croft, he agreed to admit the patient to medical service for further management. Critical care attestation.: If time is entered above; I have spent that time in minutes in the direct care of this critically ill patient, excluding procedure time.
--- NOTE | 2021-08-08 18:38 | XRay Report ---
XR chest routine 2V INDICATION / CLINICAL INFORMATION: hx of hypoxia, BRIDGET COMPARISON: 12/26/2020 FINDINGS: SUPPORT DEVICES: None. HEART / MEDIASTINUM: No significant abnormality. LUNGS / PLEURA: Lungs are clear. Costophrenic sulci are sharp. No pneumothorax. ADDITIONAL FINDINGS: No significant additional findings. IMPRESSION: 1. No acute findings. Signer Name: Toi Higgins MD Signed: 08/08/2021 6:34 PM Workstation Name: [id number]
[2021-08-08] MEDS ORDERED: ROCURONIUM 50 MG/5 ML INJ IV ONE ×2 (18:47→19:12)
[2021-08-08] MEDS ORDERED: KETAMINE 500 MG/5 ML VIAL MDV ONE (18:48)
[2021-08-08] MEDS ORDERED: LIP THERAPY VASELINE TP PRN (19:12)
[2021-08-08] MEDS ORDERED: KETAMINE 500 MG/5 ML VIAL MDV IV ONE (19:12)
[2021-08-08] MEDS ORDERED: MINERAL OIL/PETROLATUM, WHITE OPHTH OINT 3.5 GM OU PRN (19:12)
[2021-08-08] MEDS ORDERED: levETIRAcetam 1000 MG/NS 0.75% 1,000 MG/100 ML BAG IV ONE ×2 (19:12→23:11)
[2021-08-08] MEDS ORDERED: LACTATED RINGERS 1,000 ML IV ONE ×2 (19:21→23:11)
[2021-08-08 19:37] LABS: Mean Corpuscular HGB Conc 31 % (32-34); Mean Corpuscular Volume 96 fl (84-94); Platelet Count 160 K/mm3 (140-440); Red Blood Count 5.09 M/mm3 (3.65-5.03); Red Cell Distribution Width 15.2 % (13.2-15.2)
[2021-08-08 19:49] LABS: INR 0.97 (0.87-1.13)
[2021-08-08 19:54] LABS: Hemoglobin 15.3 gm/dl (11.8-15.2)
[2021-08-08 19:57] LABS: BUN/Creatinine Ratio 13; Blood Urea Nitrogen 10 mg/dL (9-20); Calcium 9.5 mg/dL (8.4-10.2); Hemolysis Index 3
--- NOTE | 2021-08-08 20:00 | XRay Report ---
XR chest 1V ap INDICATION / CLINICAL INFORMATION: ETT placement COMPARISON: Earlier same day. FINDINGS: SUPPORT DEVICES: low-lying endotracheal tube. HEART / MEDIASTINUM: No significant abnormality. LUNGS / PLEURA: Low lung volumes. Lungs are unchanged. Costophrenic sulci are sharp. No pneumothorax . ADDITIONAL FINDINGS: No significant additional findings. IMPRESSION: 1. Low lying endotracheal tube. Retract 4 cm for more optimal positioning. Signer Name: Toi Higgins MD Signed: 08/08/2021 7:56 PM Workstation Name: [id number]
[2021-08-08 20:45] LABS: Hepatitis B Surface Antigen Non-Reactive (Negative); Hepatitis C Virus Antibody Non-Reactive (NonReactive)
[2021-08-08] MEDS: fentaNYL DRIP Premix 2,000 MCG/100 ML BAG IV SCH (20:49)
[2021-08-08] MEDS: fentaNYL 100 MCG/2 ML INJ IV PRN (20:50)
--- NOTE | 2021-08-08 22:50 | Cat Scan Report ---
CT HEAD WITHOUT CONTRAST INDICATION / CLINICAL INFORMATION: convulsion. TECHNIQUE: All CT scans at this location are performed using CT dose reduction for ALARA by means of automated exposure control. COMPARISON: CT dated 01/01/20 FINDINGS: HEMORRHAGE: None. EXTRA-AXIAL SPACES: Normal in size and morphology for the patient's age. VENTRICULAR SYSTEM: Normal in size and morphology for the patient's age. CEREBRAL PARENCHYMA: No significant abnormality. No acute territorial infarct. MIDLINE SHIFT / HERNIATION: None. CEREBELLUM / BRAINSTEM: No significant abnormality. ORBITS: Normal as visualized. SOFT TISSUES: No significant abnormality. SKULL: No significant abnormality. PARANASAL SINUSES / MASTOID AIR CELLS: Mild mucosal thickening in the paranasal sinuses. ADDITIONAL FINDINGS: None. IMPRESSION: 1. No acute intracranial abnormality. Signer Name: Lyla Cho MD Signed: 08/08/2021 10:46 PM Workstation Name: [id number]
[2021-08-08 23:11] LABS: ABG Base Excess 4.7 mmol/L (-2.0-3.0); ABG HCO3 29.8 mmol/L (20.0-26.0); ABG Methemoglobin 0.7 % (0.0-1.5); ABG Oxygen Saturation 96.4 % (95.0-99.0); ABG PCO2 45.8 mm Hg; ABG PH 7.431 pH Units (7.350-7.450); ABG PO2 77.8 mm Hg (80.0-90.0)
[2021-08-08] MEDS ORDERED: MORPHINE 4 MG/1 ML INJ IV PRN (23:16)
[2021-08-08] MEDS ORDERED: ACETAMINOPHEN 650 MG RECT SUPP PR PRN (23:16)
[2021-08-08] MEDS ORDERED: MORPHINE 2 MG/1 ML INJ IV PRN (23:16)
[2021-08-08] MEDS ORDERED: MAGNESIUM HYDROXIDE (MOM) ORAL LIQD UDC PO PRN (23:16)
--- NOTE | 2021-08-08 23:24 | History and Physical Report ---
History of Present Illness Date of examination: 08/08/21 Date of admission: 08/08/2021 Chief complaint: Decreased responsiveness History of present illness: 35-year-old -[place] male with known history of obstructive sleep apnea on CPAP at home brought into the emergency room via EMS today for decreased responsiveness. Patient was said to be initially hypoxic but later became responsive after vigorous stimulation. Upon arrival in the emergency room patient denied any complaints. However after evaluation and in the process of being discharged from the emergency room patient was said to have a seizure and went into respiratory distress. He was subsequently intubated in the emergency room. No further information available at this time as family members were not available. Work-up in the emergency room today, toxicology screen was positive for ma rijuana and cocaine. Chest x-ray and CT scan of the head was unremarkable. Past History Past Medical History: other (Morbid Obesity, Obstructive Sleep Apnea) Past Surgical History: No surgical history Social history: smoking (Current daily smoker) Family history: no significant family history Medications and Allergies Allergies Allergy/AdvReac Type Severity Reaction Status Date / Time No Known Allergies Allergy Verified 05/06/21 22:22 Home Medications Medication Instructions Recorded Confirmed Last Taken Type Ketotifen Fumarate [Zaditor] 2 drop OP BID PRN #5 ml 06/22/19 Unknown Rx Polymyxin B Sulf/Trimethoprim 2 drop OP Q3H 10 Days #10 ml 06/22/19 Unknown Rx [Polytrim Eye Drops] cephALEXin [Keflex] 500 mg PO Q12HR #20 cap 01/01/20 Unknown Rx Ibuprofen [Motrin 800 MG tab] 800 mg PO Q8HR PRN #20 tablet 02/26/20 Unknown Rx methOCARBAMOL [Robaxin TAB] 750 mg PO Q8H PRN #30 tablet 02/26/20 Unknown Rx Acetaminophen/Codeine [Tylenol 1 tab PO Q6H PRN #12 tab 12/26/20 Unknown Rx /Codeine # 3 tab] Naproxen 500 mg PO BID #20 tablet 05/06/21 Unknown Rx Active Meds: Active Medications Acetaminophen (Acetaminophen 650 Mg Rect Supp) 650 mg [place] Q6H PRN PRN Reason: Pain MILD(1-3)/Fever >100.5/LACKEY Famotidine (Famotidine 20 Mg/2 Ml Inj) 20 mg IV BID CARLINE Fentanyl (Fentanyl 100 Mcg/2 Ml Inj) 50 mcg IV Q10MIN PRN PRN Reason: ANALGESIA Last Admin: 08/08/21 20:50 Dose: 50 mcg Heparin Sodium (Porcine) (Heparin 5,000 Unit/1 Ml Vial) 5,000 unit SUB-Q Q8HR CARLINE Hydrophilic Ointment (Lip Therapy Vaseline) 1 applic TP Q2HR PRN PRN Reason: Dry Lips Propofol (Diprivan 10 Mg/Ml) 1,000 mg in 100 mls @ 4.627 mls/hr IV TITR CARLINE; Protocol Last Admin: 08/08/21 21:11 Dose: 50 mcg/kg/min, 46.266 mls/hr Fentanyl Citrate (Fentanyl Drip Premix) 2,000 mcg in 100 mls @ 7.711 mls/hr IV TITR CARLINE; Protocol Last Admin: 08/08/21 20:49 Dose: 2 mcg/kg/hr, 15.422 mls/hr Lactated Ringer's (Lactated Ringers) 1,000 mls @ 999 mls/hr IV BOLUS ONE Stop: 08/09/21 00:11 Levetiracetam (Keppra 1,000 Mg/Ns 0.75% 100ml) 1,000 mg in 100 mls @ 400 mls/hr IV ONCE ONE Stop: 08/08/21 23:25 Sodium Chloride (Nacl 0.9% 1000 Ml) 1,000 mls @ 75 mls/hr IV DIRECT CARLINE Magnesium Hydroxide (Magnesium Hydroxide (Mom) Oral Liqd Udc) 30 ml PO Q4H PRN PRN Reason: Constipation Morphine Sulfate (Morphine 2 Mg/1 Ml Inj) 2 mg IV Q4H PRN PRN Reason: Pain, Moderate (4-6) Morphine Sulfate (Morphine 4 Mg/1 Ml Inj) 4 mg IV Q4H PRN PRN Reason: Pain , Severe (7-10) Multi-Ingred Cream/Lotion/Oil/Oint (Mineral Oil/Petrolatum, White Ophth Oint 3.5 Gm) 1 applic OU Q4HR PRN PRN Reason: Dry Eye(s) Senna/Docusate Sodium (Sennosides/Docusate Sodium 8.6/50 Mg Tab) 1 tab FEEDTUBE BID CARLINE Sodium Chloride (Sodium Chloride 0.9% 10 Ml Flush Syringe) 10 ml IV BID CARLINE Sodium Chloride (Sodium Chloride 0.9% 10 Ml Flush Syringe) 10 ml IV PRN PRN PRN Reason: LINE FLUSH Review of Systems ROS unobtainable: due to endotracheal tube Exam - Constitutional Vitals: Temp Pulse Resp BP Pulse Ox 98.1 F 88 16 156/109 100 08/08/21 16:00 08/08/21 20:48 08/08/21 16:00 08/08/21 19:18 08/08/21 20:48 General appearance: Present: obese, other (Intubated and Sedated) - EENT Eyes: Present: PERRL, EOM intact. Absent: scleral icterus ENT: hearing intact, clear oral mucosa, dentition normal - Neck Neck: Present: supple, normal ROM - Respiratory Respiratory effort: normal Respiratory: bilateral: CTA - Cardiovascular Rhythm: regular Heart Sounds: Present: S1 & S2. Absent: gallop, systolic murmur, diastolic murmur, rub, click - Extremities Extremities: no ischemia, pulses intact, pulses symmetrical, normal temperature, normal color, Full ROM Extremity abnormal: edema (Trace bilateral ankle edema) Peripheral Pulses: within normal limits - Abdominal General gastrointestinal: Present: soft, non-tender, non-distended, normal bowel sounds. Absent: mass - Integumentary Integumentary: Present: clear, warm, dry. Absent: rash - Musculoskeletal Musculoskeletal: strength equal bilaterally - Psychiatric Psychiatric: cooperative - Neurologic Neurologic: no focal deficits, other (Intubated and sedated) Results - Labs CBC & Chem 7: 08/08/21 19:10 08/08/21 19:10 Labs: Abnormal lab results 08/08/21 08/08/21 08/08/21 Range/Units 19:10 19:10 19:26 RBC 5.09 H (3.65-5.03) M/mm3 Hgb 15.3 H (11.8-15.2) gm/dl Hct 49.0 H (35.5-45.6) % MCV 96 H (84-94) fl MCHC 31 L (32-34) % ABG pO2 (80.0-90.0) mm Hg ABG HCO3 (20.0-26.0) mmol/L ABG Base Excess (-2.0-3.0) mmol/L Oxyhemoglobin (95.0-99.0) % Sodium 136 L (137-145) mmol/L Chloride 96.4 L (98-107) mmol/L Glucose 128 H (75-100) mg/dL Total Creatine Kinase 275 H (55-170) units/L Salicylates < 0.3 L (2.8-20.0) mg/dL Acetaminophen (10.0-30.0) ug/mL 08/08/21 08/08/21 Range/Units 19:26 22:50 RBC (3.65-5.03) M/mm3 Hgb (11.8-15.2) gm/dl Hct (35.5-45.6) % MCV (84-94) fl MCHC (32-34) % ABG pO2 77.8 L (80.0-90.0) mm Hg ABG HCO3 29.8 H (20.0-26.0) mmol/L ABG Base Excess 4.7 H (-2.0-3.0) mmol/L Oxyhemoglobin 94.6 L (95.0-99.0) % Sodium (137-145) mmol/L Chloride (98-107) mmol/L Glucose (75-100) mg/dL Total Creatine Kinase (55-170) units/L Salicylates (2.8-20.0) mg/dL Acetaminophen 5.0 L (10.0-30.0) ug/mL Assessment and Plan - Patient Problems (1) Acute hypercapnic respiratory failure Current Visit: Yes Status: Acute Plan to address problem: Patient currently intubated and sedated. Patient has known history of obstructive sleep apnea Will await further evaluation and recommendations from research subject. (2) History of sleep apnea Current Visit: Yes Status: Acute Plan to address problem: Patient uses CPAP at home. (3) Morbid obesity with BMI of 50.0-59.9, adult Current Visit: Yes Status: Acute Plan to address problem: Dietary evaluation requested. Will encourage lifestyle modification. (4) Seizure disorder Current Visit: Yes Status: Acute Plan to address problem: Will place on seizure precautions. Consult placed to neurology for evaluation. Patient has been started on Keppra (5) DVT prophylaxis Current Visit: Yes Status: Acute Plan to address problem: Patient placed on subcutaneous heparin. (6) Full code status Current Visit: Yes Status: Acute Plan to address problem: Patient is full code.
[2021-08-08] MEDS: SENNOSIDES/DOCUSATE SODIUM 8.6/50 MG TAB FEEDTUBE SCH (23:29)
[2021-08-08] MEDS ORDERED: SODIUM CHLORIDE 0.9% 1000 ML 1,000 ML IV SCH (23:30)
[2021-08-08] MEDS: FAMOTIDINE 20 MG/2 ML INJ IV SCH (23:31)
[2021-08-09 00:04] LABS: Bilirubin,Urine NEG (Negative); Blood,Urine NEG (Negative); Color,Urine Yellow (Yellow); Mucus,Urine 1+ /HPF; Urobilinogen,Urine < 2.0 mg/dL (<2.0)
[2021-08-09 00:11] LABS: Amphetamine Screen,Urine PRESUMPTIVE NEGATIVE; Benzodiazepines Screen,Urine PRESUMPTIVE NEGATIVE; Cannabinoid Screen,Urine PRESUMPTIVE POSITIVE; Cocaine Screen,Urine PRESUMPTIVE POSITIVE; Methadone Screen,Urine PRESUMPTIVE NEGATIVE; Opiate Screen,Urine PRESUMPTIVE NEGATIVE
[2021-08-09] MEDS: fentaNYL DRIP Premix 2,000 MCG/100 ML BAG IV SCH ×4 (01:42→20:25)
[2021-08-09 03:50] LABS: Basophils % (Auto) 0.6 % (0.0-1.8); Eosinophils % (Auto) 0.2 % (0.0-4.3); Hematocrit 40.2 % (35.5-45.6); Hemoglobin 14.1 gm/dl (11.8-15.2); Lymphocytes # (Auto) 1.4 K/mm3 (1.2-5.4); Mean Corpuscular HGB Conc 35 % (32-34); Mean Corpuscular Volume 96 fl (84-94); Monocytes # (Auto) 0.8 K/mm3 (0.0-0.8); Monocytes % (Auto) 9.2 % (0.0-7.3); Platelet Count 124 K/mm3 (140-440); Red Cell Distribution Width 15.5 % (13.2-15.2)
[2021-08-09 04:09] LABS: Blood Urea Nitrogen 11 mg/dL (9-20); Hemolysis Index 79
[2021-08-09 04:21] LABS: BUN/Creatinine Ratio 16
[2021-08-09] MEDS ORDERED: ROCURONIUM 50 MG/5 ML INJ IV ONE (05:21)
[2021-08-09] MEDS: HEPARIN 5,000 UNIT/1 ML VIAL SUB-Q SCH ×3 (06:12→23:17)
[2021-08-09 06:48] LABS: ABG Base Excess 5.7 mmol/L (-2.0-3.0); ABG HCO3 28.3 mmol/L (20.0-26.0); ABG Methemoglobin 0.6 % (0.0-1.5); ABG Oxygen Saturation 98.4 % (95.0-99.0); ABG PCO2 34.7 mm Hg; ABG PH 7.529 pH Units (7.350-7.450); ABG PO2 114.3 mm Hg (80.0-90.0)
--- NOTE | 2021-08-09 07:46 | Progress Note ---
Assessment and Plan Assessment and plan: History of present illness: 35-year-old -[place] male with known history of obstructive sleep apnea on CPAP at home brought into the emergency room via EMS today for decreased responsiveness. Patient was said to be initially hypoxic but later became responsive after vigorous stimulation. Upon arrival in the emergency room patient denied any complaints. However after evaluation and in the process of being discharged from the emergency room patient was said to have a seizure and went into respiratory distress. He was subsequently intubated in the emergency room. No further information available at this time as family members were not available. Work-up in the emergency room today, toxicology screen was positive for marijuana and cocaine. Hospital Course: 08/09/2021: Patient remains on vent. Weaning off MV as sats tolerate. Weaning parameters per [facility]. Electrolyte correction with NS+20 MEQ K. Will follow neuro input/workup. Continue keppra IV for reported seizure. Assessment and Plan: #Status epilepticus -Cocaine and marijuana positive on UDS Seizure precautions CT scan of the head was unremarkable. EEG ordered Seizure precautions Neurochecks every hour Keppra 1000 mg IV twice daily Neurology consulted #Acute hypoxemic respiratory failure -History of obstructive sleep apnea but does not appear hypercapneic, hypoxic on admission abg. -Intubated for airway protection during seizure Post intubation x-ray unremarkable AB.52/34.7/114.3/28.3 on 50% FiO2 Mechanical ventilation, management per critical care Critical care consulted #Hypokalemia - replacement with NS+20 MEQ K - trend on bmp #Hyponatremia - replacement with NS+20 MEQ K - trend on bmp #Hypochloremia - replacement with NS+20 MEQ K - trend on bmp #History of sleep apnea - large body habitus, documented by admitted doctor #Morbid obesity - noted, will admin behavioral health counseling post extubation #History of polysubstance abuse -UDS positive for cocaine, THC #Advance care planning Disease education conducted, care plan discussed, diagnoses discussed, prognosis discussed, patient is full code, patient/family acknowledges understanding and agree with care plan, +30 minutes. The high probability of a clinically significant, sudden or life threatening deterioration of the [pulmonary, neuro] system(s) required my full and direct attention, intervention and personal management. The aggregate critical care time was [60] minutes. This time is in addition to time spent performing reported procedures but includes the following: [x] Data Review and interpretation [x] Patient assessment and monitoring of vital signs [x] Documentation [x] Medication orders and management History Interval history: intubated and sedated. Hospitalist Physical - Physical exam Narrative exam: Physical Exam: VITAL SIGNS: Reviewed. GENERAL: The patient appears normally developed, Vital signs as documented. morbidly obese. intubated and sedated HEAD: No signs of head trauma. EYES: Pupils are equal. Extraocular motions intact. EARS: Hearing grossly intact. MOUTH: Oropharynx is normal. NECK: No adenopathy, no JVD. CHEST: Chest with clear breath sounds bilaterally. No wheezes, rales, or rhonchi. CARDIAC: Regular rate and rhythm. S1 and S2, without murmurs, gallops, or rubs. VASCULAR: No Edema. Peripheral pulses normal and equal in all extremities. ABDOMEN: Soft, non tender and non distended. No rebound or guarding, and no masses palpated. Bowel Sounds normal. MUSCULOSKELETAL: Good range of motion of all major joints. Extremities without clubbing, cyanosis or edema. NEUROLOGIC EXAM: unable to assess PSYCHIATRIC: unable to assess SKIN: detail exam as documented in skin assessment - Constitutional Vitals: Temp Pulse Resp BP Pulse Ox 98.1 F 59 L 24 116/67 98 08/08/21 16:00 08/09/21 07:01 08/09/21 07:01 08/09/21 07:01 08/09/21 07:01 General appearance: Present: obese, other (Intubated and Sedated) Results - Labs CBC & Chem 7: 08/09/21 03:15 08/09/21 03:15 Labs: Laboratory Last Values WBC 8.1 K/mm3 (4.5-11.0) 08/09/21 03:15 RBC 4.20 M/mm3 (3.65-5.03) 08/09/21 03:15 Hgb 14.1 gm/dl (11.8-15.2) 08/09/21 03:15 Hct 40.2 % (35.5-45.6) D 08/09/21 03:15 MCV 96 fl (84-94) H 08/09/21 03:15 MCH 34 pg (28-32) H 08/09/21 03:15 MCHC 35 % (32-34) H 08/09/21 03:15 RDW 15.5 % (13.2-15.2) H 08/09/21 03:15 Plt Count 124 K/mm3 (140-440) L 08/09/21 03:15 Lymph % (Auto) 17.0 % (13.4-35.0) 08/09/21 03:15 Esmeralda % (Auto) 9.2 % (0.0-7.3) H 08/09/21 03:15 Eos % (Auto) 0.2 % (0.0-4.3) 08/09/21 03:15 Baso % (Auto) 0.6 % (0.0-1.8) 08/09/21 03:15 Lymph # (Auto) 1.4 K/mm3 (1.2-5.4) 08/09/21 03:15 Esmeralda # (Auto) 0.8 K/mm3 (0.0-0.8) 08/09/21 03:15 Eos # (Auto) 0.0 K/mm3 (0.0-0.4) 08/09/21 03:15 Baso # (Auto) 0.0 K/mm3 (0.0-0.1) 08/09/21 03:15 Seg Neutrophils % 73.0 % (40.0-70.0) H 08/09/21 03:15 Seg Neutrophils # 5.9 K/mm3 (1.8-7.7) 08/09/21 03:15 PT 14.0 Sec. (12.2-14.9) 08/08/21 19:17 INR 0.97 (0.87-1.13) 08/08/21 19:17 ABG pH 7.529 pH Units (7.350-7.450) H 08/09/21 06:00 ABG pCO2 34.7 mm Hg 08/09/21 06:00 ABG pO2 114.3 mm Hg (80.0-90.0) H 08/09/21 06:00 ABG HCO3 28.3 mmol/L (20.0-26.0) H 08/09/21 06:00 ABG O2 Saturation 98.4 % (95.0-99.0) 08/09/21 06:00 ABG O2 Content 19.6 (0.0-44) 08/09/21 06:00 ABG Base Excess 5.7 mmol/L (-2.0-3.0) H 08/09/21 06:00 ABG Hemoglobin 14.3 gm/dl (14.0-18.0) 08/09/21 06:00 ABG Carboxyhemoglobin 1.1 % (0.0-5.0) 08/09/21 06:00 ABG Methemoglobin 0.6 % (0.0-1.5) 08/09/21 06:00 Oxyhemoglobin 96.7 % (95.0-99.0) 08/09/21 06:00 FiO2 50 % 08/09/21 06:00 Sodium 129 mmol/L (137-145) L D 08/09/21 03:15 Potassium 3.4 mmol/L (3.6-5.0) L 08/09/21 03:15 Chloride 92.8 mmol/L (98-107) L 08/09/21 03:15 Carbon Dioxide 24 mmol/L (22-30) 08/09/21 03:15 Anion Gap 16 mmol/L 08/09/21 03:15 BUN 11 mg/dL (9-20) 08/09/21 03:15 Creatinine 0.7 mg/dL (0.8-1.3) L 08/09/21 03:15 Estimated GFR > 60 ml/min 08/09/21 03:15 BUN/Creatinine Ratio 16 % 08/09/21 03:15 Glucose 81 mg/dL (75-100) 08/09/21 03:15 Calcium 8.0 mg/dL (8.4-10.2) L D 08/09/21 03:15 Magnesium 1.80 mg/dL (1.7-2.3) 08/08/21 19:10 Total Creatine Kinase 275 units/L (55-170) H 08/08/21 19:10 Urine Color Yellow (Yellow) 08/08/21 23:45 Urine Turbidity Turbid (Clear) 08/08/21 23:45 Urine pH 5.0 (5.0-7.0) 08/08/21 23:45 Ur Specific [place] 1.018 (1.003-1.030) 08/08/21 23:45 Urine Protein 100 mg/dl mg/dL (Negative) 08/08/21 23:45 Urine Glucose (UA) Neg mg/dL (Negative) 08/08/21 23:45 Urine Ketones Tr mg/dL (Negative) 08/08/21 23:45 Urine Blood Neg (Negative) 08/08/21 23:45 Urine Nitrite Neg (Negative) 08/08/21 23:45 Urine Bilirubin Neg (Negative) 08/08/21 23:45 Urine Urobilinogen < 2.0 mg/dL (<2.0) 08/08/21 23:45 Ur Leukocyte Esterase Neg (Negative) 08/08/21 23:45 Urine WBC (Auto) 4.0 /HPF (0.0-6.0) 08/08/21 23:45 Urine RBC (Auto) 23.0 /HPF (0.0-6.0) 08/08/21 23:45 U Epithel Cells (Auto) 2.0 /HPF (0-13.0) 08/08/21 23:45 Urine WBC Clumps 2+ /HPF 08/08/21 23:45 Urine Mucus 1+ /HPF 08/08/21 23:45 Urine Yeast (Budding) 2+ /HPF 08/08/21 23:45 Salicylates < 0.3 mg/dL (2.8-20.0) L 08/08/21 19:26 Urine Opiates Screen Presumptive negative 08/08/21 23:46 Urine Methadone Screen Presumptive negative 08/08/21 23:46 Acetaminophen 5.0 ug/mL (10.0-30.0) L 08/08/21 19:26 Ur Barbiturates Screen Presumptive negative 08/08/21 23:46 Ur Phencyclidine Scrn Presumptive negative 08/08/21 23:46 Ur Amphetamines Screen Presumptive negative 08/08/21 23:46 U Benzodiazepines Scrn Presumptive negative 08/08/21 23:46 Urine Cocaine Screen Presumptive positive 08/08/21 23:46 U Marijuana (THC) Screen Presumptive positive 08/08/21 23:46 Drugs of Abuse Note Disclamer 08/08/21 23:46 Plasma/Serum Alcohol < 0.01 % (0-0.07) 08/08/21 19:16 Hepatitis A IgM Ab Non-reactive (NonReactive) 08/08/21 19: Hep Bs Antigen Non-reactive (Negative) 08/08/21 19: Hep B Core IgM Ab Non-reactive (NonReactive) 08/08/21 19:26 Hepatitis C Antibody Non-reactive (NonReactive) 08/08/21 19:26 HIV 1&2 Antibody Rapid Non react (Non React) 08/08/21 19:26 HIV P24 Antigen Non react (Non React) 08/08/21 19:26 Active Medications - Current Medications Current Medications: Generic Name Dose Route Start Last Admin Trade Name Freq PRN Reason Stop Dose Admin Acetaminophen 650 mg 08/08/21 23:16 Acetaminophen 650 Mg Rect Supp MS Q6H PRN Pain MILD(1-3)/Fever >100.5/LACKEY Famotidine 20 mg 08/08/21 22:00 08/08/21 23:31 Famotidine 20 Mg/2 Ml Inj IV Not Given BID CARLINE Fentanyl 50 mcg 08/08/21 20:12 08/08/21 20:50 Fentanyl 100 Mcg/2 Ml Inj IV 50 mcg Q10MIN PRN Administration ANALGESIA Heparin Sodium (Porcine) 5,000 unit 08/09/21 06:00 08/09/21 06:12 Heparin 5,000 Unit/1 Ml Vial SUB-Q 5,000 unit Q8HR CARLINE Administration Hydrophilic Ointment 1 applic 08/08/21 19:12 Lip Therapy Vaseline TP Q2HR PRN Dry Lips Propofol 1,000 mg in 100 mls @ 4.627 mls/hr 08/08/21 20:00 08/09/21 07:36 Diprivan 10 Mg/Ml IV 30 mcg/kg/min TITR CARLINE 27.76 mls/hr Titration Protocol 5 MCG/KG/MIN Fentanyl Citrate 2,000 mcg in 100 mls @ 7.711 mls/hr 08/08/21 21:00 08/09/21 07:36 Fentanyl Drip Premix IV 3 mcg/kg/hr TITR CARLINE 23.133 mls/hr Titration Protocol 1 MCG/KG/HR Sodium Chloride 1,000 mls @ 75 mls/hr 08/08/21 23:30 08/09/21 03:27 Nacl 0.9% 1000 Ml IV 75 mls/hr DIRECT CARLINE Administration Levetiracetam 500 mg/ Dextrose 105 mls @ 400 mls/hr 08/09/21 10:00 IV Q12HR CARLINE Magnesium Hydroxide 30 ml 08/08/21 23:16 Magnesium Hydroxide (Mom) Oral Liqd Udc PO Q4H PRN Constipation Morphine Sulfate 2 mg 08/08/21 23:16 Morphine 2 Mg/1 Ml Inj IV Q4H PRN Pain, Moderate (4-6) Morphine Sulfate 4 mg 08/08/21 23:16 Morphine 4 Mg/1 Ml Inj IV Q4H PRN Pain , Severe (7-10) Multi-Ingred Cream/Lotion/Oil/Oint 1 applic 08/08/21 19:12 Mineral Oil/Petrolatum, White Ophth Oint 3.5 Gm OU Q4HR PRN Dry Eye(s) Senna/Docusate Sodium 1 tab 08/08/21 22:00 08/08/21 23:29 Sennosides/Docusate Sodium 8.6/50 Mg Tab FEEDTUBE Not Given BID CARLINE Sodium Chloride 10 ml 08/09/21 10:00 Sodium Chloride 0.9% 10 Ml Flush Syringe IV BID CARLINE Sodium Chloride 10 ml 08/08/21 23:16 Sodium Chloride 0.9% 10 Ml Flush Syringe IV PRN PRN LINE FLUSH
--- NOTE | 2021-08-09 08:04 | Consultation ---
History of Present Illness Consult date: 08/09/21 Requesting physician: ANTONIO DAIGLE Reason for consult: other (Acute hypoxemic-hypercapnic resp failure) History of present illness: HISTORY PER ER PHYSICIAN DOCUMENTATION . PATIENT IS INTUBATED AND SEDATED AND IS UNABLE TO PROVIDE ANY INFORMATION This patient is a 35-year-old gentleman. He was evaluated in his hospital December 2020, for chest pain and shortness of breath, had a lower extremity DVT study which was negative for acute findings, and a CT angiogram of the chest which was negative for acute findings. He has a history of morbid obesity, with a body mass index of 51.7, and obstructive sleep apnea, and is currently on a CPAP. He reports that his nocturnal CPAP mask has not been working recently, and that he therefore stopped using his CPAP. Earlier on today he was sitting on a couch, and became sleepy, and difficult to arouse, so family called 911 right away. EMS reports the patient was somewhat hypoxic initially, but that the patient responded with vigorous stimulation. Upon arrival to the emergency room, the patient denies all complaints. He states he had pneumonia which was diagnosed in May of last year. However, to me, he denies headache, neck pain, chest pain, abdominal pain, shortness of breath, loss of taste and smell. He also denies DVT and pulmonary embolism risk factors. He states he does not smoke cigarettes anymore. Work-up in the emergency room today, toxicology screen was positive for marijuana and cocaine. Prior to being discharged from the emergency room patient was said to have a seizure and went into respiratory distress. He was subsequently intubated in the emergency room. A critical care consult has been placed for vent management. Patient was seen and examined. Discussed with nursing and respiratory care staff He is orally intubated, sedated on Proprofol. Fentanyl infusion is running MVS: 24/500/+8/50% Past History Past Medical History: other (Morbid Obesity, Obstructive Sleep Apnea) Past Surgical History: No surgical history Social history: smoking (Current daily smoker) Family history: no significant family history Medications and Allergies Allergies Allergy/AdvReac Type Severity Reaction Status Date / Time No Known Allergies Allergy Verified 08/09/21 15:41 Home Medications Medication Instructions Recorded Confirmed Last Taken Type Ketotifen Fumarate [Zaditor] 2 drop OP BID PRN #5 ml 06/22/19 Unknown Rx Polymyxin B Sulf/Trimethoprim 2 drop OP Q3H 10 Days #10 ml 06/22/19 Unknown Rx [Polytrim Eye Drops] cephALEXin [Keflex] 500 mg PO Q12HR #20 cap 01/01/20 Unknown Rx Ibuprofen [Motrin 800 MG tab] 800 mg PO Q8HR PRN #20 tablet 02/26/20 Unknown Rx methOCARBAMOL [Robaxin TAB] 750 mg PO Q8H PRN #30 tablet 02/26/20 Unknown Rx Acetaminophen/Codeine [Tylenol 1 tab PO Q6H PRN #12 tab 12/26/20 Unknown Rx /Codeine # 3 tab] Naproxen 500 mg PO BID #20 tablet 05/06/21 Unknown Rx Active Meds: Active Medications Acetaminophen (Acetaminophen 650 Mg Rect Supp) 650 mg [place] Q6H PRN PRN Reason: Pain MILD(1-3)/Fever >100.5/LACKEY Famotidine (Famotidine 20 Mg/2 Ml Inj) 20 mg IV BID [facility]LINE Last Admin: 08/08/21 23:31 Dose: Not Given Fentanyl (Fentanyl 100 Mcg/2 Ml Inj) 50 mcg IV Q10MIN PRN PRN Reason: ANALGESIA Last Admin: 08/08/21 20:50 Dose: 50 mcg Heparin Sodium (Porcine) (Heparin 5,000 Unit/1 Ml Vial) 5,000 unit SUB-Q Q8HR [facility] Last Admin: 08/09/21 06:12 Dose: 5,000 unit Hydrophilic Ointment (Lip Therapy Vaseline) 1 applic TP Q2HR PRN PRN Reason: Dry Lips Propofol (Diprivan 10 Mg/Ml) 1,000 mg in 100 mls @ 4.627 mls/hr IV TITR CARLINE; Protocol Last Titration: 08/09/21 07:36 Dose: 30 mcg/kg/min, 27.76 mls/hr Fentanyl Citrate (Fentanyl Drip Premix) 2,000 mcg in 100 mls @ 7.711 mls/hr IV TITR CARLINE; Protocol Last Titration: 08/09/21 07:36 Dose: 3 mcg/kg/hr, 23.133 mls/hr Sodium Chloride (Nacl 0.9% 1000 Ml) 1,000 mls @ 75 mls/hr IV DIRECT CARLINE Last Admin: 08/09/21 03:27 Dose: 75 mls/hr Levetiracetam 1,000 mg/ (Dextrose) 110 mls @ 400 mls/hr IV Q12HR [facility] Potassium Chloride/Sodium Chloride (Ns/Kcl 20meq) 20 meq in 1,000 mls @ 75 mls/hr IV DIRECT CARLINE Magnesium Hydroxide (Magnesium Hydroxide (Mom) Oral Liqd Udc) 30 ml PO Q4H PRN PRN Reason: Constipation Morphine Sulfate (Morphine 2 Mg/1 Ml Inj) 2 mg IV Q4H PRN PRN Reason: Pain, Moderate (4-6) Morphine Sulfate (Morphine 4 Mg/1 Ml Inj) 4 mg IV Q4H PRN PRN Reason: Pain , Severe (7-10) Multi-Ingred Cream/Lotion/Oil/Oint (Mineral Oil/Petrolatum, White Ophth Oint 3.5 Gm) 1 applic OU Q4HR PRN PRN Reason: Dry Eye(s) Senna/Docusate Sodium (Sennosides/Docusate Sodium 8.6/50 Mg Tab) 1 tab FEEDTUBE BID [facility] Last Admin: 08/08/21 23:29 Dose: Not Given Sodium Chloride (Sodium Chloride 0.9% 10 Ml Flush Syringe) 10 ml IV BID [facility] Sodium Chloride (Sodium Chloride 0.9% 10 Ml Flush Syringe) 10 ml IV PRN PRN PRN Reason: LINE FLUSH Review of Systems ROS unobtainable: due to endotracheal tube, due to mental status Physical Examination Vital signs: Vital Signs Temp Pulse Resp BP Pulse Ox 98.1 F 105 H 16 134/88 91 08/08/21 16:00 08/08/21 16:00 08/08/21 16:00 08/08/21 16:00 08/08/21 16:00 General appearance: no acute distress, other (morbidly obese, riding set vent rate) Eyes: non-icteric ENT: oropharynx moist Neck: supple, no JVD (large short neck) Effort: normal Ascultation: Bilateral: clear, diminished breath sounds Cardiovascular: regular rate and rhythm, other (S1,S2) Gastrointestinal: normoactive bowel sounds, soft, non-tender Integumentary: normal Extremities: no cyanosis, pulses normal pupils equal and round, unable to assess, other (will move extemities when stimulated) Results - Laboratory Findings CBC and BMP: 08/09/21 03:15 08/09/21 03:15 ABG ABG pH 7.529 pH Units (7.350-7.450) H 08/09/21 06:00 ABG pCO2 34.7 mm Hg 08/09/21 06:00 ABG pO2 114.3 mm Hg (80.0-90.0) H 08/09/21 06:00 ABG O2 Saturation 98.4 % (95.0-99.0) 08/09/21 06:00 PT/INR, D-dimer PT 14.0 Sec. (12.2-14.9) 08/08/21 19:17 INR 0.97 (0.87-1.13) 08/08/21 19:17 Abnormal lab findings: Abnormal Labs 08/08/21 08/08/21 08/08/21 19:10 19:10 19:26 RBC 5.09 H Hgb 15.3 H Hct 49.0 H MCV 96 H MCH MCHC 31 L RDW Plt Count [place] % (Auto) Seg Neutrophils % ABG pH ABG pO2 ABG HCO3 ABG Base Excess Oxyhemoglobin Sodium 136 L Potassium Chloride 96.4 L Creatinine Glucose 128 H Calcium Total Creatine Kinase 275 H Salicylates < 0.3 L Acetaminophen 08/08/21 08/08/21 08/09/21 19:26 22:50 03:15 RBC Hgb Hct MCV 96 H MCH 34 H MCHC 35 H RDW 15.5 H Plt Count 124 L [place] % (Auto) 9.2 H Seg Neutrophils % 73.0 H ABG pH ABG pO2 77.8 L ABG HCO3 29.8 H ABG Base Excess 4.7 H Oxyhemoglobin 94.6 L Sodium Potassium Chloride Creatinine Glucose Calcium Total Creatine Kinase Salicylates Acetaminophen 5.0 L 08/09/21 08/09/21 03:15 06:00 RBC Hgb Hct MCV MCH MCHC RDW Plt Count [place] % (Auto) Seg Neutrophils % ABG pH 7.529 H ABG pO2 114.3 H ABG HCO3 28.3 H ABG Base Excess 5.7 H Oxyhemoglobin Sodium 129 L D Potassium 3.4 L Chloride 92.8 L Creatinine 0.7 L Glucose Calcium 8.0 L D Total Creatine Kinase Salicylates Acetaminophen - Diagnostic Findings Chest x-ray: image reviewed (Low lung volumes, Low ETT) Assessment and Plan Acute hypoxemic respiratory failure on MVS Seizures Morbid obesity BMI 51.7 h/o BRIDGET/OHS Cocaine and marijuana positive on UDS Electrolyte abnormalities -Titrate supplemental oxygen to keep SPO2 88-90% -VAP bundle addressed, aspiration precautions HOB >30 -Adjsut minute ventilation for better gas-exchange, decrease tidal volume -Seizure prophylaxis -Titrate sedation to RASS of 0 to -1 -Titrate analgesia to CPOT 0-2 -VTE prophylaxis -Stress ulcer prophyalxis if remain intubated fro >24 hours -Retract ETT by 2cm -CXR, ABG in am -Bronchodilators as clinically indicated -Plan on SAT, SBT in the morning, goal to liberate from MVS -Nutritional support if not extubated in the next 24 hours -Substance abuse counselling when he is liberated from MVS -Mobility, off loading, frequent turning per facility protocol to prevent pressure ulcers -Maintain sleep-wake cycle -Keep negative fluid balance as toelated by hemodynaics and renal function- one dose of Furosemide ordered -Correct electrolyte abnormalities. Keep K> 3.9, Mag >1.9 and Phos >2.5 The high probability of a clinically significant, sudden or life threatening deterioration of the pulmonary, neurology system(s) required my full and direct attention, intervention and personal management. The aggregate critical care time was 35 minutes. This time is in addition to time spent performing reported procedures but includes the following: [x] Data Review and interpretation [x] Patient assessment and monitoring of vital signs [x] Documentation [x] Medication orders and management
[2021-08-09] MEDS ORDERED: POTASSIUM CHLORIDE 20 MEQ 20 MEQ/100 ML BAG IV SCH (09:00)
--- NOTE | 2021-08-09 09:16 | Consultation ---
History of Present Illness Consult date: 08/09/21 Reason for Consult: Altered mentation intubated and sedated,witnessed seizure, Coccain abuse History of present illness: Decreased responsiveness History of present illness: 35-year-old -[place] male with known history of obstructive sleep apnea on CPAP at home, obesity, brought into the emergency room via EMS today for decreased responsiveness. Patient was said to be initially hypoxic but later became responsive after vigorous stimulation. Upon arrival in the emergency room patient denied any complaints. However after evaluation and in the process of being discharged from the emergency room patient was said to have a seizure and went into respiratory distress. He was subsequently intubated in the emergency room. No further information available at this time as family members were not available. Work-up in the emergency room today, toxicology screen was positive for marijuana and cocaine. Chest x-ray and CT scan of the head was unremarkable. was given one dose of Keppra in ER --intubated and sedated Past History Past Medical History: other (Morbid Obesity, Obstructive Sleep Apnea) Past Surgical History: No surgical history Social history: smoking (Current daily smoker) Family history: no significant family history Medications and Allergies Allergies Allergy/AdvReac Type Severity Reaction Status Date / Time No Known Allergies Allergy Verified 05/06/21 22:22 Home Medications Medication Instructions Recorded Confirmed Last Taken Type Ketotifen Fumarate [Zaditor] 2 drop OP BID PRN #5 ml 06/22/19 Unknown Rx Polymyxin B Sulf/Trimethoprim 2 drop OP Q3H 10 Days #10 ml 06/22/19 Unknown Rx [Polytrim Eye Drops] cephALEXin [Keflex] 500 mg PO Q12HR #20 cap 01/01/20 Unknown Rx Ibuprofen [Motrin 800 MG tab] 800 mg PO Q8HR PRN #20 tablet 02/26/20 Unknown Rx methOCARBAMOL [Robaxin TAB] 750 mg PO Q8H PRN #30 tablet 02/26/20 Unknown Rx Acetaminophen/Codeine [Tylenol 1 tab PO Q6H PRN #12 tab 12/26/20 Unknown Rx /Codeine # 3 tab] Naproxen 500 mg PO BID #20 tablet 05/06/21 Unknown Rx Active Meds: Active Medications Acetaminophen (Acetaminophen 650 Mg Rect Supp) 650 mg [place] Q6H PRN PRN Reason: Pain MILD(1-3)/Fever >100.5/LACKEY Famotidine (Famotidine 20 Mg/2 Ml Inj) 20 mg IV BID [facility]LINE Fentanyl (Fentanyl 100 Mcg/2 Ml Inj) 50 mcg IV Q10MIN PRN PRN Reason: ANALGESIA Last Admin: 08/08/21 20:50 Dose: 50 mcg Heparin Sodium (Porcine) (Heparin 5,000 Unit/1 Ml Vial) 5,000 unit SUB-Q Q8HR [facility] Hydrophilic Ointment (Lip Therapy Vaseline) 1 applic TP Q2HR PRN PRN Reason: Dry Lips Propofol (Diprivan 10 Mg/Ml) 1,000 mg in 100 mls @ 4.627 mls/hr IV TITR [facility]LINE; Protocol Last Admin: 08/08/21 21:11 Dose: 50 mcg/kg/min, 46.266 mls/hr Fentanyl Citrate (Fentanyl Drip Premix) 2,000 mcg in 100 mls @ 7.711 mls/hr IV TITR CARLINE; Protocol Last Admin: 08/08/21 20:49 Dose: 2 mcg/kg/hr, 15.422 mls/hr Lactated Ringer's (Lactated Ringers) 1,000 mls @ 999 mls/hr IV BOLUS ONE Stop: 08/09/21 00:11 Levetiracetam (Keppra 1,000 Mg/Ns 0.75% 100ml) 1,000 mg in 100 mls @ 400 mls/hr IV ONCE ONE Stop: 08/08/21 23:25 Sodium Chloride (Nacl 0.9% 1000 Ml) 1,000 mls @ 75 mls/hr IV DIRECT CARLINE Magnesium Hydroxide (Magnesium Hydroxide (Mom) Oral Liqd Udc) 30 ml PO Q4H PRN PRN Reason: Constipation Morphine Sulfate (Morphine 2 Mg/1 Ml Inj) 2 mg IV Q4H PRN PRN Reason: Pain, Moderate (4-6) Morphine Sulfate (Morphine 4 Mg/1 Ml Inj) 4 mg IV Q4H PRN PRN Reason: Pain , Severe (7-10) Multi-Ingred Cream/Lotion/Oil/Oint (Mineral Oil/Petrolatum, White Ophth Oint 3.5 Gm) 1 applic OU Q4HR PRN PRN Reason: Dry Eye(s) Senna/Docusate Sodium (Sennosides/Docusate Sodium 8.6/50 Mg Tab) 1 tab FEEDTUBE BID [facility] Sodium Chloride (Sodium Chloride 0.9% 10 Ml Flush Syringe) 10 ml IV BID [facility] Sodium Chloride (Sodium Chloride 0.9% 10 Ml Flush Syringe) 10 ml IV PRN PRN PRN Reason: LINE FLUSH Review of Systems ROS unobtainable: due to endotracheal tube Past History Past Medical History: other (Morbid Obesity, Obstructive Sleep Apnea) Past Surgical History: No surgical history Social history: smoking (Current daily smoker) Family history: no significant family history Medications and Allergies Allergies Allergy/AdvReac Type Severity Reaction Status Date / Time No Known Allergies Allergy Verified 05/06/21 22:22 Home Medications Medication Instructions Recorded Confirmed Last Taken Type Ketotifen Fumarate [Zaditor] 2 drop OP BID PRN #5 ml 06/22/19 Unknown Rx Polymyxin B Sulf/Trimethoprim 2 drop OP Q3H 10 Days #10 ml 06/22/19 Unknown Rx [Polytrim Eye Drops] cephALEXin [Keflex] 500 mg PO Q12HR #20 cap 01/01/20 Unknown Rx Ibuprofen [Motrin 800 MG tab] 800 mg PO Q8HR PRN #20 tablet 02/26/20 Unknown Rx methOCARBAMOL [Robaxin TAB] 750 mg PO Q8H PRN #30 tablet 02/26/20 Unknown Rx Acetaminophen/Codeine [Tylenol 1 tab PO Q6H PRN #12 tab 12/26/20 Unknown Rx /Codeine # 3 tab] Naproxen 500 mg PO BID #20 tablet 05/06/21 Unknown Rx Active Meds: Active Medications Acetaminophen (Acetaminophen 650 Mg Rect Supp) 650 mg [place] Q6H PRN PRN Reason: Pain MILD(1-3)/Fever >100.5/LACKEY Famotidine (Famotidine 20 Mg/2 Ml Inj) 20 mg IV BID [facility] Last Admin: 08/08/21 23:31 Dose: Not Given Fentanyl (Fentanyl 100 Mcg/2 Ml Inj) 50 mcg IV Q10MIN PRN PRN Reason: ANALGESIA Last Admin: 08/08/21 20:50 Dose: 50 mcg Heparin Sodium (Porcine) (Heparin 5,000 Unit/1 Ml Vial) 5,000 unit SUB-Q Q8HR [facility] Last Admin: 08/09/21 06:12 Dose: 5,000 unit Hydrophilic Ointment (Lip Therapy Vaseline) 1 applic TP Q2HR PRN PRN Reason: Dry Lips Propofol (Diprivan 10 Mg/Ml) 1,000 mg in 100 mls @ 4.627 mls/hr IV TITR CARLINE; Protocol Last Admin: 08/09/21 09:00 Dose: 30 mcg/kg/min, 27.76 mls/hr Fentanyl Citrate (Fentanyl Drip Premix) 2,000 mcg in 100 mls @ 7.711 mls/hr IV TITR CARLINE; Protocol Last Admin: 08/09/21 08:35 Dose: 3 mcg/kg/hr, 23.133 mls/hr Sodium Chloride (Nacl 0.9% 1000 Ml) 1,000 mls @ 75 mls/hr IV DIRECT CARLINE Last Admin: 08/09/21 03:27 Dose: 75 mls/hr Levetiracetam 1,000 mg/ (Dextrose) 110 mls @ 400 mls/hr IV Q12HR [facility] Potassium Chloride/Sodium Chloride (Ns/Kcl 20meq) 20 meq in 1,000 mls @ 75 mls/hr IV DIRECT CARLINE Potassium Chloride (Kcl 10meq/100ml) 10 meq in 100 mls @ 100 mls/hr IV Q1H [facility] Stop: 08/09/21 12:59 Magnesium Hydroxide (Magnesium Hydroxide (Mom) Oral Liqd Udc) 30 ml PO Q4H PRN PRN Reason: Constipation Morphine Sulfate (Morphine 2 Mg/1 Ml Inj) 2 mg IV Q4H PRN PRN Reason: Pain, Moderate (4-6) Morphine Sulfate (Morphine 4 Mg/1 Ml Inj) 4 mg IV Q4H PRN PRN Reason: Pain , Severe (7-10) Multi-Ingred Cream/Lotion/Oil/Oint (Mineral Oil/Petrolatum, White Ophth Oint 3.5 Gm) 1 applic OU Q4HR PRN PRN Reason: Dry Eye(s) Senna/Docusate Sodium (Sennosides/Docusate Sodium 8.6/50 Mg Tab) 1 tab FEEDTUBE BID [facility] Last Admin: 08/08/21 23:29 Dose: Not Given Sodium Chloride (Sodium Chloride 0.9% 10 Ml Flush Syringe) 10 ml IV BID [facility] Sodium Chloride (Sodium Chloride 0.9% 10 Ml Flush Syringe) 10 ml IV PRN PRN PRN Reason: LINE FLUSH Physical Examination - Vital Signs Vital Signs: Vital Signs Temp Pulse Resp BP Pulse Ox 98.1 F 105 H 16 134/88 91 08/08/21 16:00 08/08/21 16:00 08/08/21 16:00 08/08/21 16:00 08/08/21 16:00 - Constitutional General appearance: comfortable - EENT EENT: Present: PERRL, mucous membranes moist - Respiratory Respiratory: Present: chest non-tender, lungs clear - Cardiovascular Cardiovascular: Present: regular rate, normal S1, normal S2 Extremities: Present: no peripheral edema bilatateraly, no clubbing, cyanosis - Gastrointestinal Gastrointestinal: Present: normoactive bowel sounds - Integumentary Integumentary: Present: normal - Neurologic Cranial nerve examination: PERRL, EOMI, other (suppressed corneal L>R , decrease EOM, gag is intact , no facial asymmetry) Speech examination: other (intubated and sedated) Detailed motor examination: other (no movment to stimuli , he is intubated and sedated.) Results - Laboratory Findings CBC and BMP: 08/09/21 03:15 08/09/21 03:15 Abnormal Lab Findings: Abnormal Labs 08/08/21 08/08/21 08/08/21 19:10 19:10 19:26 RBC 5.09 H Hgb 15.3 H Hct 49.0 H MCV 96 H MCH MCHC 31 L RDW Plt Count [place] % (Auto) Seg Neutrophils % ABG pH ABG pO2 ABG HCO3 ABG Base Excess Oxyhemoglobin Sodium 136 L Potassium Chloride 96.4 L Creatinine Glucose 128 H Calcium Total Creatine Kinase 275 H Salicylates < 0.3 L Acetaminophen 08/08/21 08/08/21 08/09/21 19:26 22:50 03:15 RBC Hgb Hct MCV 96 H MCH 34 H MCHC 35 H RDW 15.5 H Plt Count 124 L [place] % (Auto) 9.2 H Seg Neutrophils % 73.0 H ABG pH ABG pO2 77.8 L ABG HCO3 29.8 H ABG Base Excess 4.7 H Oxyhemoglobin 94.6 L Sodium Potassium Chloride Creatinine Glucose Calcium Total Creatine Kinase Salicylates Acetaminophen 5.0 L 08/09/21 08/09/21 03:15 06:00 RBC Hgb Hct MCV MCH MCHC RDW Plt Count [place] % (Auto) Seg Neutrophils % ABG pH 7.529 H ABG pO2 114.3 H ABG HCO3 28.3 H ABG Base Excess 5.7 H Oxyhemoglobin Sodium 129 L D Potassium 3.4 L Chloride 92.8 L Creatinine 0.7 L Glucose Calcium 8.0 L D Total Creatine Kinase Salicylates Acetaminophen Assessment and Plan Assessment and Plan - Patient Problems # Acute hypercapnic respiratory failure -Patient currently intubated and sedated. -Patient has known history of obstructive sleep apnea # History of sleep apnea -Patient uses CPAP at home. #Morbid obesity with BMI of 50.0-59.9, adult - MRI brain unable to do -Dietary evaluation requested. # Seizure disorder -Keppra 1000 mg bid -EEG -cut down sedation as possible -Will place on seizure precautions. # Electrolytes abnormality,NA# [id number] # DVT prophylaxis -Patient placed on subcutaneous heparin. # Full code status -Patient is full code.
[2021-08-09] MEDS ORDERED: levETIRAcetam 500 MG in DEXTROSE 5% IN WATER 100 ML IV SCH (10:00)
[2021-08-09] MEDS: POTASSIUM CHLORIDE 10 MEQ 10 MEQ/100 ML BAG IV SCH ×4 (10:47→16:44)
[2021-08-09] MEDS: FAMOTIDINE 20 MG/2 ML INJ IV SCH ×2 (10:47→23:17)
[2021-08-09] MEDS: levETIRAcetam 1,000 MG in DEXTROSE 5% IN WATER 100 ML IV SCH ×2 (10:47→23:18)
[2021-08-09] MEDS: SENNOSIDES/DOCUSATE SODIUM 8.6/50 MG TAB FEEDTUBE SCH ×2 (10:48→23:23)
[2021-08-09] MEDS ORDERED: levETIRAcetam 1,000 MG in DEXTROSE 5% IN WATER 100 ML IV SCH (12:00)
[2021-08-09] MEDS: NACL 0.9%/KCL 20 MEQ 20 MEQ/1,000 ML BAG IV SCH (18:44)
[2021-08-09] MEDS ORDERED: BUMETANIDE 1 MG/4 ML INJ IV ONE (23:30)
[2021-08-10] MEDS: fentaNYL 100 MCG/2 ML INJ IV PRN ×2 (02:15→06:30)
[2021-08-10] MEDS ORDERED: MIDAZOLAM 2 MG/2 ML INJ ONE (02:34)
[2021-08-10] MEDS ORDERED: MIDAZOLAM 2 MG/2 ML INJ IV ONE (02:40)
[2021-08-10] MEDS: fentaNYL DRIP Premix 2,000 MCG/100 ML BAG IV SCH ×3 (03:00→10:59)
--- NOTE | 2021-08-10 05:10 | XRay Report ---
CHEST 1 VIEW 08/10/2021 3:53 AM INDICATION / CLINICAL INFORMATION: follow up respiratory failure. COMPARISON: 08/08/21 FINDINGS: SUPPORT DEVICES: Tubes and lines are in expected position. HEART / MEDIASTINUM: Stable. LUNGS / PLEURA: Mild bibasilar densities are stable. No pneumothorax. ADDITIONAL FINDINGS: No significant additional findings. IMPRESSION: 1. Tubes and lines in expected position. Stable bibasilar densities. Signer Name: Lyla Cho MD Signed: 08/10/2021 5:05 AM Workstation Name: [id number]
[2021-08-10 05:27] LABS: ABG Base Excess 1.3 mmol/L (-2.0-3.0); ABG HCO3 29.4 mmol/L (20.0-26.0); ABG Methemoglobin 0.6 % (0.0-1.5); ABG Oxygen Saturation 89.5 % (95.0-99.0); ABG PCO2 61.8 mm Hg; ABG PH 7.296 pH Units (7.350-7.450); ABG PO2 61.9 mm Hg (80.0-90.0)
[2021-08-10] MEDS: HEPARIN 5,000 UNIT/1 ML VIAL SUB-Q SCH ×3 (06:15→23:20)
[2021-08-10 06:22] LABS: Basophils % (Auto) 0.5 % (0.0-1.8); Eosinophils % (Auto) 0.5 % (0.0-4.3); Hematocrit 45.2 % (35.5-45.6); Hemoglobin 14.2 gm/dl (11.8-15.2); Lymphocytes # (Auto) 1.4 K/mm3 (1.2-5.4); Lymphocytes % (Auto) 14.3 % (13.4-35.0); Mean Corpuscular HGB Conc 31 % (32-34); Mean Corpuscular Volume 95 fl (84-94); Monocytes % (Auto) 10.5 % (0.0-7.3); Platelet Count 109 K/mm3 (140-440); Red Blood Count 4.76 M/mm3 (3.65-5.03); Red Cell Distribution Width 15.8 % (13.2-15.2)
[2021-08-10 06:36] LABS: BUN/Creatinine Ratio 11; Blood Urea Nitrogen 12 mg/dL (9-20); Calcium 8.9 mg/dL (8.4-10.2); Hemolysis Index 31
[2021-08-10] MEDS: FAMOTIDINE 20 MG/2 ML INJ IV SCH ×2 (10:16→23:21)
[2021-08-10] MEDS: SENNOSIDES/DOCUSATE SODIUM 8.6/50 MG TAB FEEDTUBE SCH ×2 (10:16→23:26)
[2021-08-10] MEDS: levETIRAcetam 1,000 MG in DEXTROSE 5% IN WATER 100 ML IV SCH ×2 (10:24→23:51)
--- NOTE | 2021-08-10 12:05 | Progress Note ---
Assessment and Plan Assessment and Plan - Patient Problems # Acute hypercapnic respiratory failure -Patient currently intubated and sedated. -Patient has known history of obstructive sleep apnea # History of sleep apnea -Patient uses CPAP at home. #Morbid obesity with BMI of 50.0-59.9, adult - MRI brain unable to do -Dietary evaluation requested. # Seizure disorder -Keppra 1000 mg bid -EEG is pending -cut down sedation as possible -Seizure precaution , no driving -Will place on seizure precautions. # Electrolytes abnormality,NA# 129 --139 # Recreational drug abuse -UDS is positive for cocain and marijuana -MRI brain is unable to do due to over weight >390 Lbs -maintain keppra -cancellation # DVT prophylaxis -Patient placed on subcutaneous heparin. # Full code status -Patient is full code. Subjective Date of service: 08/10/21 Principal diagnosis: seizure,drug abuse,morbid obesity Interval history: today he is more alert interactive, still intubated PH#7.29--co2#61.8--O2#61.9 placed on keppra 1000 mg bid -MRI brain and EEG are pending Objective - Vital Sign Vital Signs - 12hr 08/10/21 08/10/21 08/10/21 00:01 00:15 00:31 Pulse Rate 63 61 62 Respiratory 23 24 24 Rate Blood Pressure 109/63 101/58 102/59 O2 Sat by Pulse 93 92 94 Oximetry 08/10/21 08/10/21 08/10/21 00:45 01:01 01:15 Pulse Rate 60 58 L 57 L Respiratory 24 24 24 Rate Blood Pressure 105/61 102/61 104/61 O2 Sat by Pulse 93 93 93 Oximetry 08/10/21 08/10/21 08/10/21 01:31 01:45 02:01 Pulse Rate 64 59 L 95 H Respiratory 24 24 20 Rate Blood Pressure 110/65 109/72 118/89 O2 Sat by Pulse 92 96 Oximetry 08/10/21 08/10/21 08/10/21 02:15 02:31 02:45 Pulse Rate 95 H 101 H 91 H Respiratory 25 H 21 24 Rate Blood Pressure 94/73 164/109 148/97 O2 Sat by Pulse 94 96 92 Oximetry 08/10/21 08/10/21 08/10/21 03:01 03:15 03:31 Pulse Rate 89 83 75 Respiratory 24 24 24 Rate Blood Pressure 142/91 143/85 115/79 O2 Sat by Pulse 93 94 95 Oximetry 08/10/21 08/10/21 08/10/21 03:40 03:45 04:01 Pulse Rate 77 72 88 Respiratory 24 24 Rate Blood Pressure 115/79 117/76 116/76 O2 Sat by Pulse 94 95 96 Oximetry 08/10/21 08/10/21 08/10/21 04:15 04:31 04:45 Pulse Rate 70 69 76 Respiratory 24 24 21 Rate Blood Pressure 121/79 115/73 137/97 O2 Sat by Pulse 94 93 94 Oximetry 08/10/21 08/10/21 08/10/21 05:01 05:15 05:31 Pulse Rate 80 84 79 Respiratory 24 15 24 Rate Blood Pressure 138/83 129/78 100/79 O2 Sat by Pulse 92 94 90 Oximetry 08/10/21 08/10/21 08/10/21 05:45 06:01 06:15 Pulse Rate 82 99 H 88 Respiratory 15 14 21 Rate Blood Pressure 118/77 129/70 155/99 O2 Sat by Pulse 90 94 89 Oximetry 08/10/21 08/10/21 08/10/21 06:31 06:45 07:00 Pulse Rate 89 97 H 86 Respiratory 24 20 24 Rate Blood Pressure 165/96 165/96 165/96 O2 Sat by Pulse 91 93 90 Oximetry 08/10/21 08/10/21 08/10/21 07:15 07:30 07:45 Pulse Rate 71 72 65 Respiratory 28 H 28 H 28 H Rate Blood Pressure 165/96 165/96 165/96 O2 Sat by Pulse 97 99 98 Oximetry 08/10/21 08/10/21 08/10/21 08:00 08:15 08:30 Pulse Rate 70 63 68 Respiratory 28 H 28 H 28 H Rate Blood Pressure 165/96 165/96 165/96 O2 Sat by Pulse 96 96 96 Oximetry 08/10/21 08/10/21 08/10/21 08:45 09:01 09:15 Pulse Rate 61 59 L 53 L Respiratory 28 H 28 H 28 H Rate Blood Pressure 165/96 165/96 165/96 O2 Sat by Pulse 96 97 97 Oximetry 08/10/21 08/10/21 08/10/21 09:31 09:45 10:01 Pulse Rate 57 L 55 L 53 L Respiratory 28 H 29 H 28 H Rate Blood Pressure 165/96 165/96 165/96 O2 Sat by Pulse 98 99 100 Oximetry 08/10/21 08/10/21 10:15 10:31 Pulse Rate 64 69 Respiratory 28 H 28 H Rate Blood Pressure 165/96 165/96 O2 Sat by Pulse 100 98 Oximetry - General Apperance Constitutional: uncomfortable - EENT EENT: PERRL, mucous membranes moist - Respiratory Respiratory: lungs clear, rhonchi - Cardiovascular Cardiovascular: regular rate, normal S1, normal S2 Extremities: no peripheral edema bilat, no clubbing, cyanosis - Gastrointestinal Gastrointestinal: normoactive bowel sounds - Integumentary Integumentary: normal - Neurologic Cranial nerve examination: PERRL, EOMI, intact Detailed motor examination: grossly full strength in - Laboratory Findings CBC and BMP: 08/10/21 05:48 08/10/21 05:48 Abnormal Lab Findings: Abnormal Labs 08/08/21 08/08/21 08/08/21 19:10 19:10 19:26 RBC 5.09 H Hgb 15.3 H Hct 49.0 H MCV 96 H MCH MCHC 31 L RDW Plt Count [place] % (Auto) [place] # (Auto) Seg Neutrophils % ABG pH ABG pO2 ABG HCO3 ABG O2 Saturation ABG Base Excess Oxyhemoglobin Sodium 136 L Potassium Chloride 96.4 L Creatinine Glucose 128 H Calcium Total Creatine Kinase 275 H Salicylates < 0.3 L Acetaminophen 08/08/21 08/08/21 08/09/21 19:26 22:50 03:15 RBC Hgb Hct MCV 96 H MCH 34 H MCHC 35 H RDW 15.5 H Plt Count 124 L [place] % (Auto) 9.2 H [place] # (Auto) Seg Neutrophils % 73.0 H ABG pH ABG pO2 77.8 L ABG HCO3 29.8 H ABG O2 Saturation ABG Base Excess 4.7 H Oxyhemoglobin 94.6 L Sodium Potassium Chloride Creatinine Glucose Calcium Total Creatine Kinase Salicylates Acetaminophen 5.0 L 08/09/21 08/09/21 08/10/21 03:15 06:00 04:47 RBC Hgb Hct MCV MCH MCHC RDW Plt Count [place] % (Auto) [place] # (Auto) Seg Neutrophils % ABG pH 7.529 H 7.296 L ABG pO2 114.3 H 61.9 L ABG HCO3 28.3 H 29.4 H ABG O2 Saturation 89.5 L ABG Base Excess 5.7 H Oxyhemoglobin 87.6 L Sodium 129 L D Potassium 3.4 L Chloride 92.8 L Creatinine 0.7 L Glucose Calcium 8.0 L D Total Creatine Kinase Salicylates Acetaminophen 08/10/21 05:48 RBC Hgb Hct MCV 95 H MCH MCHC 31 L RDW 15.8 H Plt Count 109 L [place] % (Auto) 10.5 H [place] # (Auto) 1.0 H Seg Neutrophils % 74.2 H ABG pH ABG pO2 ABG HCO3 ABG O2 Saturation ABG Base Excess Oxyhemoglobin Sodium Potassium Chloride Creatinine Glucose Calcium Total Creatine Kinase Salicylates Acetaminophen
--- NOTE | 2021-08-10 12:54 | Progress Note ---
Assessment and Plan Acute hypoxemic respiratory failure on MVS Seizures Morbid obesity BMI 51.7 h/o BRIDGET/OHS Cocaine and marijuana positive on UDS Electrolyte abnormalities Stop all sedation, place on PSV 6/6 fro an hour if he tolerates it. Get weaning parameters, with goal to liberate from MVS -Titrate supplemental oxygen to keep SPO2 88-90% -VAP bundle addressed, aspiration precautions HOB >30 -Seizure prophylaxis -Titrate sedation to RASS of 0 to -1 -Titrate analgesia to CPOT 0-2 -VTE prophylaxis -Stress ulcer prophyalxis s -CXR, ABG as clinically indicated -Bronchodilators as clinically indicated -Nutritional support if not extubated in today -Substance abuse counselling when he is liberated from MVS -Mobility, off loading, frequent turning per facility protocol to prevent pressure ulcers -Maintain sleep-wake cycle -Keep negative fluid balance as tolerated by hemodynamics and renal function- s/p dose of Furosemide yesterday -Correct electrolyte abnormalities. Keep K> 3.9, Mag >1.9 and Phos >2.5 The high probability of a clinically significant, sudden or life threatening deterioration of the pulmonary, neurology system(s) required my full and direct attention, intervention and personal management. The aggregate critical care time was 35 minutes. This time is in addition to time spent performing reported procedures but includes the following: [x] Data Review and interpretation [x] Patient assessment and monitoring of vital signs [x] Documentation [x] Medication orders and management Subjective Date of service: 08/10/21 Principal diagnosis: seizure,drug abuse,morbid obesity Interval history: Seen and examined. Vitals, labs, medications, chart reviewed. No adverse overnight events reported. Discussed with respiratory care and nursing staff. No fevers, no vomiting, Remains orally intubated on MVS. Minimal settings Objective Vital Signs - 12hr 08/10/21 08/10/21 08/10/21 01:01 01:15 01:31 Pulse Rate 58 L 57 L 64 Respiratory 24 24 24 Rate Blood Pressure 102/61 104/61 110/65 O2 Sat by Pulse 93 93 92 Oximetry 08/10/21 08/10/21 08/10/21 01:45 02:01 02:15 Pulse Rate 59 L 95 H 95 H Respiratory 24 20 25 H Rate Blood Pressure 109/72 118/89 94/73 O2 Sat by Pulse 96 94 Oximetry 08/10/21 08/10/2108/10/22 02:31 02:45 03:01 Pulse Rate 101 H 91 H 89 Respiratory 21 24 24 Rate Blood Pressure 164/109 148/97 142/91 O2 Sat by Pulse 96 92 93 Oximetry 08/10/21 08/10/21 08/10/21 03:15 03:31 03:40 Pulse Rate 83 75 77 Respiratory 24 24 Rate Blood Pressure 143/85 115/79 115/79 O2 Sat by Pulse 94 95 94 Oximetry 08/10/21 08/10/21 08/10/21 03:45 04:01 04:15 Pulse Rate 72 88 70 Respiratory 24 24 24 Rate Blood Pressure 117/76 116/76 121/79 O2 Sat by Pulse 95 96 94 Oximetry 08/10/21 08/10/21 08/10/21 04:31 04:45 05:01 Pulse Rate 69 76 80 Respiratory 24 21 24 Rate Blood Pressure 115/73 137/97 138/83 O2 Sat by Pulse 93 94 92 Oximetry 08/10/21 08/10/21 08/10/21 05:15 05:31 05:45 Pulse Rate 84 79 82 Respiratory 15 24 15 Rate Blood Pressure 129/78 100/79 118/77 O2 Sat by Pulse 94 90 90 Oximetry 08/10/21 08/10/21 08/10/21 06:01 06:15 06:31 Pulse Rate 99 H 88 89 Respiratory 14 21 24 Rate Blood Pressure 129/70 155/99 165/96 O2 Sat by Pulse 94 89 91 Oximetry 08/10/21 08/10/21 08/10/21 06:45 07:00 07:15 Pulse Rate 97 H 86 71 Respiratory 20 24 28 H Rate Blood Pressure 165/96 165/96 165/96 O2 Sat by Pulse 93 90 97 Oximetry 08/10/21 08/10/21 08/10/21 07:30 07:45 08:00 Pulse Rate 72 65 70 Respiratory 28 H 28 H 28 H Rate Blood Pressure 165/96 165/96 165/96 O2 Sat by Pulse 99 98 96 Oximetry 08/10/21 08/10/21 08/10/21 08:15 08:30 08:45 Pulse Rate 63 68 61 Respiratory 28 H 28 H 28 H Rate Blood Pressure 165/96 165/96 165/96 O2 Sat by Pulse 96 96 96 Oximetry 08/10/21 08/10/21 08/10/21 09:01 09:15 09:31 Pulse Rate 59 L 53 L 57 L Respiratory 28 H 28 H 28 H Rate Blood Pressure 165/96 165/96 165/96 O2 Sat by Pulse 97 97 98 Oximetry 08/10/21 08/10/21 08/10/21 09:45 10:01 10:15 Pulse Rate 55 L 53 L 64 Respiratory 29 H 28 H 28 H Rate Blood Pressure 165/96 165/96 165/96 O2 Sat by Pulse 99 100 100 Oximetry 08/10/21 08/10/21 08/10/21 10:31 10:45 12:15 Pulse Rate 69 66 Respiratory 28 H 28 H 28 H Rate Blood Pressure 165/96 165/96 O2 Sat by Pulse 98 99 98 Oximetry Constitutional: no acute distress, alert, other (morbidly obese) Eyes: non-icteric ENT: oropharynx moist Neck: supple, no JVD (large short neck) Effort: normal Ascultation: Bilateral: clear, diminished breath sounds Cardiovascular: regular rate and rhythm, other (S1,S2) Gastrointestinal: normoactive bowel sounds Integumentary: normal Extremities: no cyanosis, pulses normal Neurologic: pupils equal and round, unable to assess, other (will move extemities when stimulated) Psychiatric: anxious CBC and BMP: 08/10/21 05:48 08/10/21 05:48 ABG, PT/INR, D-dimer: ABG ABG pH 7.296 pH Units (7.350-7.450) L 08/10/21 04:47 ABG pCO2 61.8 mm Hg 08/10/21 04:47 ABG pO2 61.9 mm Hg (80.0-90.0) L 08/10/21 04:47 ABG O2 Saturation 89.5 % (95.0-99.0) L 08/10/21 04:47 PT/INR, D-dimer PT 14.0 Sec. (12.2-14.9) 08/08/21 19:17 INR 0.97 (0.87-1.13) 08/08/21 19:17 Abnormal lab findings: Abnormal Labs 08/08/21 08/08/21 08/08/21 19:10 19:10 19:26 RBC 5.09 H Hgb 15.3 H Hct 49.0 H MCV 96 H MCH MCHC 31 L RDW Plt Count [place] % (Auto) [place] # (Auto) Seg Neutrophils % ABG pH ABG pO2 ABG HCO3 ABG O2 Saturation ABG Base Excess Oxyhemoglobin Sodium 136 L Potassium Chloride 96.4 L Creatinine Glucose 128 H Calcium Total Creatine Kinase 275 H Salicylates < 0.3 L Acetaminophen 08/08/21 08/08/21 08/09/21 19:26 22:50 03:15 RBC Hgb Hct MCV 96 H MCH 34 H MCHC 35 H RDW 15.5 H Plt Count 124 L [place] % (Auto) 9.2 H [place] # (Auto) Seg Neutrophils % 73.0 H ABG pH ABG pO2 77.8 L ABG HCO3 29.8 H ABG O2 Saturation ABG Base Excess 4.7 H Oxyhemoglobin 94.6 L Sodium Potassium Chloride Creatinine Glucose Calcium Total Creatine Kinase Salicylates Acetaminophen 5.0 L 08/09/21 08/09/21 08/10/21 03:15 06:00 04:47 RBC Hgb Hct MCV MCH MCHC RDW Plt Count [place] % (Auto) [place] # (Auto) Seg Neutrophils % ABG pH 7.529 H 7.296 L ABG pO2 114.3 H 61.9 L ABG HCO3 28.3 H 29.4 H ABG O2 Saturation 89.5 L ABG Base Excess 5.7 H Oxyhemoglobin 87.6 L Sodium 129 L D Potassium 3.4 L Chloride 92.8 L Creatinine 0.7 L Glucose Calcium 8.0 L D Total Creatine Kinase Salicylates Acetaminophen 08/10/21 05:48 RBC Hgb Hct MCV 95 H MCH MCHC 31 L RDW 15.8 H Plt Count 109 L [place] % (Auto) 10.5 H [place] # (Auto) 1.0 H Seg Neutrophils % 74.2 H ABG pH ABG pO2 ABG HCO3 ABG O2 Saturation ABG Base Excess Oxyhemoglobin Sodium Potassium Chloride Creatinine Glucose Calcium Total Creatine Kinase Salicylates Acetaminophen Chest x-ray: image reviewed Allied health notes reviewed: RT
--- NOTE | 2021-08-10 17:09 | Progress Note ---
Assessment and Plan Assessment and Plan: #Status epilepticus -Cocaine and marijuana positive on UDS Seizure precautions CT scan of the head was unremarkable. EEG ordered Seizure precautions Neurochecks every hour Keppra 1000 mg IV twice daily Neurology consult appreciated -Weaning in progress #Acute hypoxemic respiratory failure Patient can be weaned today #Hypokalemia Resolved #Hyponatremia - replacement with NS+20 MEQ K - trend on bmp #Hypochloremia - replacement with NS+20 MEQ K - trend on bmp #History of sleep apnea - large body habitus, documented by admitted doctor #Morbid obesity - noted, will admin behavioral health counseling post extubation #History of polysubstance abuse -UDS positive for cocaine, THC #Advance care planning Disease education conducted, care plan discussed, diagnoses discussed, prognosis discussed, patient is full code, patient/family acknowledges understanding and agree with care plan, +30 minutes. The high probability of a clinically significant, sudden or life threatening deterioration of the [pulmonary, neuro] system(s) required my full and direct attention, intervention and personal management. The aggregate critical care time was [35 minutes]. This time is in addition to time spent performing reported procedures but includes the following: [x] Data Review and interpretation [x] Patient assessment and monitoring of vital signs [x] Documentation [x] Medication orders and management Subjective Date of service: 08/10/21 Principal diagnosis: seizure,drug abuse,morbid obesity Interval history: 35-year-old -[place]ian male with known history of obstructive sleep apnea on CPAP at home brought into the emergency room via EMS today for decreased responsiveness. Patient was said to be initially hypoxic but later became responsive after vigorous stimulation. Upon arrival in the emergency room patient denied any complaints. However after evaluation and in the process of being discharged from the emergency room patient was said to have a seizure and went into respiratory distress. He was subsequently intubated in the emergency room. No further information available at this time as family members were not available. Work-up in the emergency room today, toxicology screen was positive for marijuana and cocaine. Hospital Course: 08/09/2021: Patient remains on vent. Weaning off MV as sats tolerate. Weaning parameters per CCM. Electrolyte correction with NS+20 MEQ K. Will follow neuro input/workup. Continue keppra IV for reported seizure. Objective - Exam Narrative Exam: Patient intubated but weaning in progress - Constitutional Vitals: Vital Signs - 12hr 08/10/21 08/10/21 08/10/21 05:15 05:31 05:45 Pulse Rate 84 79 82 Respiratory 15 24 15 Rate Blood Pressure 129/78 100/79 118/77 Blood Pressure [Left] O2 Sat by Pulse 94 90 90 Oximetry 08/10/21 08/10/21 08/10/21 06:01 06:15 06:31 Pulse Rate 99 H 88 89 Respiratory 14 21 24 Rate Blood Pressure 129/70 155/99 165/96 Blood Pressure [Left] O2 Sat by Pulse 94 89 91 Oximetry 08/10/21 08/10/21 08/10/21 06:45 07:00 07:15 Pulse Rate 97 H 86 71 Respiratory 20 24 28 H Rate Blood Pressure 165/96 165/96 165/96 Blood Pressure [Left] O2 Sat by Pulse 93 90 97 Oximetry 08/10/21 08/10/21 08/10/21 07:30 07:45 08:00 Pulse Rate 72 65 70 Respiratory 28 H 28 H 28 H Rate Blood Pressure 165/96 165/96 165/96 Blood Pressure [Left] O2 Sat by Pulse 99 98 96 Oximetry 08/10/21 08/10/21 08/10/21 08:15 08:30 08:45 Pulse Rate 63 68 61 Respiratory 28 H 28 H 28 H Rate Blood Pressure 165/96 165/96 165/96 Blood Pressure [Left] O2 Sat by Pulse 96 96 96 Oximetry 08/10/21 08/10/21 08/10/21 09:01 09:15 09:31 Pulse Rate 59 L 53 L 57 L Respiratory 28 H 28 H 28 H Rate Blood Pressure 165/96 165/96 165/96 Blood Pressure [Left] O2 Sat by Pulse 97 97 98 Oximetry 08/10/21 08/10/21 08/10/21 09:45 10:01 10:15 Pulse Rate 55 L 53 L 64 Respiratory 29 H 28 H 28 H Rate Blood Pressure 165/96 165/96 165/96 Blood Pressure [Left] O2 Sat by Pulse 99 100 100 Oximetry 08/10/21 08/10/21 08/10/21 10:31 10:45 12:15 Pulse Rate 69 66 Respiratory 28 H 28 H 28 H Rate Blood Pressure 165/96 165/96 165/96 Blood Pressure [Left] O2 Sat by Pulse 98 99 96 Oximetry 0108/10/21 08/10/21 12:31 12:45 13:01 Pulse Rate Respiratory Rate Blood Pressure 165/96 165/96 165/96 Blood Pressure [Left] O2 Sat by Pulse 88 85 90 Oximetry 08/10/21 08/10/21 08/10/21 13:15 13:31 13:39 Pulse Rate Respiratory Rate Blood Pressure 165/96 165/96 Blood Pressure [Left] O2 Sat by Pulse 94 95 95 Oximetry 08/10/21 08/10/21 08/10/21 13:45 14:01 14:13 Pulse Rate 107 H Respiratory 16 Rate Blood Pressure 165/96 165/96 Blood Pressure 165/96 [Left] O2 Sat by Pulse 93 95 95 Oximetry General appearance: Present: no acute distress, mild distress, well-nourished - EENT Eyes: PERRL, EOM intact ENT: hearing intact, clear oral mucosa Ears: bilateral: normal - Neck Neck: supple, normal ROM - Respiratory Respiratory effort: normal Respiratory: bilateral: CTA - Breasts Breasts: normal - Cardiovascular Heart rate: 78 Rhythm: regular Heart Sounds: Present: S1 & S2. Absent: gallop, rub Extremities: pulses intact, No edema, normal color, Full ROM - Gastrointestinal General gastrointestinal: Present: soft, non-tender, non-distended, normal bowel sounds - Genitourinary Male genitourinary: normal - Integumentary Integumentary: clear, warm, dry - Musculoskeletal Musculoskeletal: generalized weakness - Neurologic Neurologic: moves all extremities, other (Sedated for vent management) - Psychiatric Psychiatric: other (Sedated for vent management) - Allied health notes Allied health notes reviewed: nursing, case management - Labs CBC & Chem 7: 08/10/21 05:48 08/10/21 05:48 Labs: Abnormal lab results 08/10/21 08/10/21 Range/Units 04:47 05:48 MCV 95 H (84-94) fl MCHC 31 L (32-34) % RDW 15.8 H (13.2-15.2) % Plt Count 109 L (140-440) K/mm3 [place] % (Auto) 10.5 H (0.0-7.3) % [place] # (Auto) 1.0 H (0.0-0.8) K/mm3 Seg Neutrophils % 74.2 H (40.0-70.0) % ABG pH 7.296 L (7.350-7.450) pH Units ABG pO2 61.9 L (80.0-90.0) mm Hg ABG HCO3 29.4 H (20.0-26.0) mmol/L ABG O2 Saturation 89.5 L (95.0-99.0) % Oxyhemoglobin 87.6 L (95.0-99.0) %
[2021-08-11] MEDS: NACL 0.9%/KCL 20 MEQ 20 MEQ/1,000 ML BAG IV SCH (05:45)
[2021-08-11] MEDS: HEPARIN 5,000 UNIT/1 ML VIAL SUB-Q SCH ×3 (05:49→21:11)
--- NOTE | 2021-08-11 05:59 | Progress Note ---
Assessment and Plan Acute hypoxemic respiratory failure s/p MVS Seizures Morbid obesity BMI 51.7 h/o BRIDGET/OHS Cocaine and marijuana positive on UDS Electrolyte abnormalities -Titrate supplemental oxygen to keep SPO2 88-90% -BIPAP qhs, will need outpatient sleep study -VTE prophylaxis -CXR, ABG as clinically indicated -Bronchodilators as clinically indicated -Substance abuse counselling -PT/OT, increase activity as tolerated -Maintain sleep-wake cycle -Keep negative fluid balance as tolerated by hemodynamics and renal function -Correct electrolyte abnormalities. Keep K> 3.9, Mag >1.9 and Phos >2.5 -Life style modifications, weight loss and nutritional counselling Subjective Date of service: 08/11/21 Principal diagnosis: seizure,drug abuse,morbid obesity Interval history: Seen and examined. Vitals, labs, medications, chart reviewed. No adverse overnight events reported Discussed with respiratory care and nursing staff. No fevers, no vomiting, Extubated yesterday and is on HFOT 25L 65% Objective Vital Signs - 12hr 08/10/21 08/10/21 08/10/21 18:01 18:11 18:21 Temperature Pulse Rate Respiratory Rate Blood Pressure 165/96 165/96 165/96 Blood Pressure [Left] O2 Sat by Pulse 87 94 92 Oximetry 08/10/21 08/10/21 08/10/21 18:31 18:41 18:51 Temperature Pulse Rate Respiratory Rate Blood Pressure 165/96 165/96 165/96 Blood Pressure [Left] O2 Sat by Pulse 99 98 100 Oximetry 08/10/21 08/10/21 08/10/21 19:01 19:11 19:21 Temperature Pulse Rate Respiratory Rate Blood Pressure 165/96 165/96 165/96 Blood Pressure [Left] O2 Sat by Pulse 92 98 88 Oximetry 08/10/21 08/10/21 08/10/21 19:31 19:41 19:51 Temperature Pulse Rate Respiratory Rate Blood Pressure 165/96 165/96 165/96 Blood Pressure [Left] O2 Sat by Pulse 92 97 97 Oximetry 08/10/21 08/10/21 08/10/21 20:01 20:11 20:21 Temperature Pulse Rate Respiratory Rate Blood Pressure 165/96 165/96 165/96 Blood Pressure [Left] O2 Sat by Pulse 95 95 98 Oximetry 08/10/21 08/10/21 08/10/21 20:31 20:41 20:51 Temperature Pulse Rate Respiratory Rate Blood Pressure 165/96 165/96 165/96 Blood Pressure [Left] O2 Sat by Pulse 97 100 97 Oximetry 08/10/21 08/10/21 08/10/21 21:01 21:11 21:16 Temperature Pulse Rate Respiratory Rate Blood Pressure 165/96 165/96 Blood Pressure [Left] O2 Sat by Pulse 100 100 97 Oximetry 08/10/21 08/10/21 08/10/21 21:42 22:27 22:41 Temperature 98.4 F Pulse Rate 89 Respiratory 20 Rate Blood Pressure 165/96 Blood Pressure 155/99 [Left] O2 Sat by Pulse 94 97 97 Oximetry 08/10/21 08/10/21 08/11/21 23:27 23:31 03:30 Temperature Pulse Rate 89 Respiratory 22 Rate Blood Pressure Blood Pressure [Left] O2 Sat by Pulse 97 97 Oximetry 08/11/21 08/11/21 04:09 04:10 Temperature 98.5 F 98.5 F Pulse Rate 106 H Respiratory 22 22 Rate Blood Pressure 161/99 152/108 Blood Pressure [Left] O2 Sat by Pulse 99 Oximetry Constitutional: no acute distress, asleep, other (morbidly obese) Eyes: non-icteric ENT: oropharynx moist Neck: supple, no JVD (large short neck) Effort: mildly labored Ascultation: Bilateral: clear, diminished breath sounds Cardiovascular: regular rate and rhythm, other (S1,S2) Gastrointestinal: normoactive bowel sounds Integumentary: normal Extremities: no cyanosis, pulses normal Neurologic: normal mental status, non-focal exam, pupils equal and round, CN II- XII normal, motor strength normal and Psychiatric: mood appropriate, affect normal CBC and BMP: 08/12/21 08:11 08/12/21 08:11 ABG, PT/INR, D-dimer: ABG ABG pH 7.296 pH Units (7.350-7.450) L 08/10/21 04:47 ABG pCO2 61.8 mm Hg 08/10/21 04:47 ABG pO2 61.9 mm Hg (80.0-90.0) L 08/10/21 04:47 ABG O2 Saturation 89.5 % (95.0-99.0) L 08/10/21 04:47 PT/INR, D-dimer PT 14.0 Sec. (12.2-14.9) 08/08/21 19:17 INR 0.97 (0.87-1.13) 08/08/21 19:17 Abnormal lab findings: Abnormal Labs 08/08/21 08/08/21 08/08/21 19:10 19:10 19:26 RBC 5.09 H Hgb 15.3 H Hct 49.0 H MCV 96 H MCH MCHC 31 L RDW Plt Count [place] % (Auto) [place] # (Auto) Seg Neutrophils % ABG pH ABG pO2 ABG HCO3 ABG O2 Saturation ABG Base Excess Oxyhemoglobin Sodium 136 L Potassium Chloride 96.4 L Creatinine Glucose 128 H Calcium Total Creatine Kinase 275 H Salicylates < 0.3 L Acetaminophen 08/08/21 08/08/21 08/09/21 19:26 22:50 03:15 RBC Hgb Hct MCV 96 H MCH 34 H MCHC 35 H RDW 15.5 H Plt Count 124 L [place] % (Auto) 9.2 H [place] # (Auto) Seg Neutrophils % 73.0 H ABG pH ABG pO2 77.8 L ABG HCO3 29.8 H ABG O2 Saturation ABG Base Excess 4.7 H Oxyhemoglobin 94.6 L Sodium Potassium Chloride Creatinine Glucose Calcium Total Creatine Kinase Salicylates Acetaminophen 5.0 L 08/09/21 08/09/21 08/10/21 03:15 06:00 04:47 RBC Hgb Hct MCV MCH MCHC RDW Plt Count [place] % (Auto) [place] # (Auto) Seg Neutrophils % ABG pH 7.529 H 7.296 L ABG pO2 114.3 H 61.9 L ABG HCO3 28.3 H 29.4 H ABG O2 Saturation 89.5 L ABG Base Excess 5.7 H Oxyhemoglobin 87.6 L Sodium 129 L D Potassium 3.4 L Chloride 92.8 L Creatinine 0.7 L Glucose Calcium 8.0 L D Total Creatine Kinase Salicylates Acetaminophen 08/10/21 05:48 RBC Hgb Hct MCV 95 H MCH MCHC 31 L RDW 15.8 H Plt Count 109 L [place] % (Auto) 10.5 H [place] # (Auto) 1.0 H Seg Neutrophils % 74.2 H ABG pH ABG pO2 ABG HCO3 ABG O2 Saturation ABG Base Excess Oxyhemoglobin Sodium Potassium Chloride Creatinine Glucose Calcium Total Creatine Kinase Salicylates Acetaminophen Allied health notes reviewed: RT
[2021-08-11] MEDS: levETIRAcetam 1,000 MG in DEXTROSE 5% IN WATER 100 ML IV SCH (11:53)
[2021-08-11] MEDS: SENNOSIDES/DOCUSATE SODIUM 8.6/50 MG TAB FEEDTUBE SCH ×2 (11:53→21:10)
[2021-08-11] MEDS: FAMOTIDINE 20 MG/2 ML INJ IV SCH ×2 (11:53→21:10)
[2021-08-11] MEDS: levETIRAcetam 500 MG TAB PO SCH (21:10)
--- NOTE | 2021-08-12 02:35 | Progress Note ---
Assessment and Plan Assessment and Plan: #Status epilepticus -Cocaine and marijuana positive on UDS Seizure precautions CT scan of the head was unremarkable. EEG ordered Seizure precautions Neurochecks every hour Keppra 1000 mg IV twice korey switch to oral Keppra Neurology consult appreciated Patient extubated #Acute hypoxemic respiratory failure Patient can be weaned today Patient still on high oxygen-30 L nasal cannula oxygen Coronavirus PCR in a.m. #Hypokalemia Resolved #Hyponatremia - replacement with NS+20 MEQ K - trend on bmp #Hypochloremia - replacement with NS+20 MEQ K - trend on bmp #History of sleep apnea - large body habitus, documented by admitted doctor #Morbid obesity - noted, will admin behavioral health counseling post extubation #History of polysubstance abuse -UDS positive for cocaine, THC #Advance care planning Disease education conducted, care plan discussed, diagnoses discussed, prognosis discussed, patient is full code, patient/family acknowledges understanding and agree with care plan, +30 minutes. Subjective Date of service: 08/11/21 Principal diagnosis: seizure,drug abuse,morbid obesity Interval history: 35-year-old -[place] male with known history of obstructive sleep apnea on CPAP at home brought into the emergency room via EMS today for decreased responsiveness. Patient was said to be initially hypoxic but later became responsive after vigorous stimulation. Upon arrival in the emergency room patient denied any complaints. However after evaluation and in the process of being discharged from the emergency room patient was said to have a seizure and went into respiratory distress. He was subsequently intubated in the emergency room. No further information available at this time as family members were not available. Work-up in the emergency room today, toxicology screen was positive for marijuana and cocaine. Hospital Course: 08/09/2021: Patient remains on vent. Weaning off MV as sats tolerate. Weaning parameters per CCM. Electrolyte correction with NS+20 MEQ K. Will follow neuro input/workup. Continue keppra IV for reported seizure. 08/10/2021 Patient is weaned off ventilator Still requiring high oxygen levels Hypoventilation 08/11/2021 Patient on high flow oxygen 30 L oxygen Oxygen saturation was around 90 Mild respiratory distress No seizures Objective - Constitutional Vitals: Vital Signs - 12hr 08/11/21 08/11/21 08/11/21 15:57 17:14 20:18 Temperature 98.3 F 98.6 F Pulse Rate 110 H 99 H Respiratory 18 20 Rate Blood Pressure 148/86 171/93 Blood Pressure [Left] O2 Sat by Pulse 94 93 93 Oximetry 08/11/21 08/11/21 08/12/21 22:00 23:10 00:00 Temperature 97.3 F L Pulse Rate 104 H 98 H Respiratory 20 20 Rate Blood Pressure Blood Pressure 169/75 [Left] O2 Sat by Pulse 96 96 95 Oximetry 08/12/21 00:45 Temperature Pulse Rate 98 H Respiratory 13 Rate Blood Pressure Blood Pressure [Left] O2 Sat by Pulse 100 Oximetry General appearance: Present: no acute distress, well-nourished - EENT Eyes: PERRL, EOM intact ENT: hearing intact, clear oral mucosa Ears: bilateral: normal - Neck Neck: supple, normal ROM - Respiratory Respiratory effort: normal Respiratory: bilateral: CTA, wheezing (Scattered rhonchi) - Breasts Breasts: normal - Cardiovascular Heart rate: 98 Rhythm: regular Heart Sounds: Present: S1 & S2. Absent: gallop, rub Extremities: pulses intact, No edema, normal color, Full ROM - Gastrointestinal General gastrointestinal: Present: soft, non-tender, non-distended, normal bowel sounds - Genitourinary Male genitourinary: normal - Integumentary Integumentary: clear, warm, dry - Musculoskeletal Musculoskeletal: 1, strength equal bilaterally - Neurologic Neurologic: moves all extremities - Psychiatric Psychiatric: memory intact, appropriate mood/affect, intact judgment & insight - Labs CBC & Chem 7: 08/10/21 05:48 08/10/21 05:48
[2021-08-12] MEDS: HEPARIN 5,000 UNIT/1 ML VIAL SUB-Q SCH ×3 (05:22→22:14)
[2021-08-12 08:39] LABS: Basophils # (Auto) 0.1 K/mm3 (0.0-0.1); Basophils % (Auto) 0.7 % (0.0-1.8); Eosinophils # (Auto) 0.3 K/mm3 (0.0-0.4); Hematocrit 44.7 % (35.5-45.6); Hemoglobin 14.2 gm/dl (11.8-15.2); Lymphocytes # (Auto) 1.6 K/mm3 (1.2-5.4); Mean Corpuscular HGB Conc 32 % (32-34); Mean Corpuscular Volume 96 fl (84-94); Monocytes # (Auto) 0.8 K/mm3 (0.0-0.8); Monocytes % (Auto) 9.6 % (0.0-7.3); Red Blood Count 4.65 M/mm3 (3.65-5.03); Red Cell Distribution Width 15.5 % (13.2-15.2)
[2021-08-12 09:02] LABS: C-Reactive Protein 17.3 mg/dL (0.00-1.30)
[2021-08-12 09:03] LABS: Alanine Aminotransferase 17 units/L (7-56); Albumin 3.8 g/dL (3.9-5); BUN/Creatinine Ratio 11; Blood Urea Nitrogen 9 mg/dL (9-20); Calcium 9.1 mg/dL (8.4-10.2); Hemolysis Index 23
--- NOTE | 2021-08-12 09:32 | Progress Note ---
Assessment and Plan Assessment and plan: 35-year-old -Italian male with known history of obstructive sleep apnea on CPAP at home brought into the emergency room via EMS today for decreased responsiveness. Patient was said to be initially hypoxic but later became responsive after vigorous stimulation. Upon arrival in the emergency room patient denied any complaints. However after evaluation and in the process of being discharged from the emergency room patient was said to have a seizure and went into respiratory distress. He was subsequently intubated in the emergency room. Toxicology screen was positive for marijuana and cocaine. The patient remained on mechanical ventilation but later was extubated and transferred to the floor Seizure disorder Acute hypercapnic hypoxemic respiratory failure Hypokalemia Hyponatremia hypochloremia Obstructive sleep apnea/obesity hypoventilation syndrome Morbid obesity History of polysubstance abuse. UDS positive for cocaine, THC Hospital Course: 08/09/2021: Patient remains on vent. Weaning off MV as sats tolerate. Weaning parameters per CCM. Electrolyte correction with NS+20 MEQ K. Will follow neuro input/workup. Continue keppra IV for reported seizure. 08/10/2021 Patient is weaned off ventilator Still requiring high oxygen levels Hypoventilation 08/11/2021 Patient on high flow oxygen 30 L oxygen Oxygen saturation was around 90 Mild respiratory distress No seizures 08/12/2021. Patient on CPAP-12 at night with FiO2 of 60%. Patient with high flow nasal cannula during the day with 25 L at FiO2 of 65%. Continue to wean oxygen as tolerated. Continue Keppra 1000 mg twice daily and follow-up EEG. Continue seizure precautions. No new seizure activity noted neurology following. Unable to complete MRI due to body habitus. History Interval history: No new issues overnight Hospitalist Physical - Constitutional Vitals: Temp Pulse Resp BP Pulse Ox 98.6 F 104 H 18 140/98 92 08/12/21 08:54 08/12/21 08:54 08/12/21 08:54 08/12/21 08:54 08/12/21 08:54 General appearance: Present: no acute distress, well-nourished - EENT Eyes: Present: PERRL, EOM intact ENT: hearing intact, clear oral mucosa, dentition normal - Neck Neck: Present: supple, normal ROM - Respiratory Respiratory effort: normal Respiratory: bilateral: CTA - Cardiovascular Rhythm: regular Heart Sounds: Present: S1 & S2. Absent: gallop, rub - Extremities Extremities: no ischemia, No edema, Full ROM - Abdominal General gastrointestinal: soft, non-tender, non-distended, normal bowel sounds - Integumentary Integumentary: Present: clear, warm, dry - Neurologic Neurologic: CNII-XII intact, moves all extremities Results - Labs CBC & Chem 7: 08/12/21 08:11 08/12/21 08:11 Labs: Laboratory Last Values WBC 8.6 K/mm3 (4.5-11.0) 08/12/21 08:11 RBC 4.65 M/mm3 (3.65-5.03) 08/12/21 08:11 Hgb 14.2 gm/dl (11.8-15.2) 08/12/21 08:11 Hct 44.7 % (35.5-45.6) 08/12/21 08:11 MCV 96 fl (84-94) H 08/12/21 08:11 MCH 31 pg (28-32) 08/12/21 08:11 MCHC 32 % (32-34) 08/12/21 08:11 RDW 15.5 % (13.2-15.2) H 08/12/21 08:11 Plt Count 109 K/mm3 (140-440) L 08/10/21 05:48 Lymph % (Auto) 18.0 % (13.4-35.0) 08/12/21 08:11 [place] % (Auto) 9.6 % (0.0-7.3) H 08/12/21 08:11 Eos % (Auto) 3.0 % (0.0-4.3) 08/12/21 08:11 Baso % (Auto) 0.7 % (0.0-1.8) 08/12/21 08:11 Lymph # (Auto) 1.6 K/mm3 (1.2-5.4) 08/12/21 08:11 [place] # (Auto) 0.8 K/mm3 (0.0-0.8) 08/12/21 08:11 Eos # (Auto) 0.3 K/mm3 (0.0-0.4) 08/12/21 08:11 Baso # (Auto) 0.1 K/mm3 (0.0-0.1) 08/12/21 08:11 Seg Neutrophils % 68.7 % (40.0-70.0) 08/12/21 08:11 Seg Neutrophils # 5.9 K/mm3 (1.8-7.7) 08/12/21 08:11 PT 14.0 Sec. (12.2-14.9) 08/08/21 19:17 INR 0.97 (0.87-1.13) 08/08/21 19:17 D-Dimer > 39539 ng/mlDDU (0-234) H 08/12/21 08:11 ABG pH 7.296 pH Units (7.350-7.450) L 08/10/21 04:47 ABG pCO2 61.8 mm Hg 08/10/21 04:47 ABG pO2 61.9 mm Hg (80.0-90.0) L 08/10/21 04:47 ABG HCO3 29.4 mmol/L (20.0-26.0) H 08/10/21 04:47 ABG O2 Saturation 89.5 % (95.0-99.0) L 08/10/21 04:47 ABG O2 Content 18.4 (0.0-44) 08/10/21 04:47 ABG Base Excess 1.3 mmol/L (-2.0-3.0) 08/10/21 04:47 ABG Hemoglobin 14.9 gm/dl (14.0-18.0) 08/10/21 04:47 ABG Carboxyhemoglobin 1.4 % (0.0-5.0) 08/10/21 04:47 ABG Methemoglobin 0.6 % (0.0-1.5) 08/10/21 04:47 Oxyhemoglobin 87.6 % (95.0-99.0) L 08/10/21 04:47 FiO2 50 % 08/10/21 04:47 Sodium 140 mmol/L (137-145) 08/12/21 08:11 Potassium 4.1 mmol/L (3.6-5.0) 08/12/21 08:11 Chloride 99.6 mmol/L (98-107) 08/12/21 08:11 Carbon Dioxide 31 mmol/L (22-30) H 08/12/21 08:11 Anion Gap 14 mmol/L 08/12/21 08:11 BUN 9 mg/dL (9-20) 08/12/21 08:11 Creatinine 0.8 mg/dL (0.8-1.3) 08/12/21 08:11 Estimated GFR > 60 ml/min 08/12/21 08:11 BUN/Creatinine Ratio 11 % 08/12/21 08:11 Glucose 98 mg/dL (75-100) 08/12/21 08:11 Glucose 99 mg/dL (75-100) 08/12/21 08:11 Calcium 9.1 mg/dL (8.4-10.2) 08/12/21 08:11 Magnesium 1.80 mg/dL (1.7-2.3) 08/08/21 19:10 Ferritin 270.3 ng/mL (30.0-300.0) 08/12/21 08:11 Total Bilirubin 1.10 mg/dL (0.1-1.2) 08/12/21 08:11 AST 29 units/L (5-40) 08/12/21 08:11 ALT 17 units/L (7-56) 08/12/21 08:11 Alkaline Phosphatase 68 units/L (35-129) 08/12/21 08:11 Lactate Dehydrogenase 331 units/L (91-180) H 08/12/21 08:11 Total Creatine Kinase 275 units/L (55-170) H 08/08/21 19:10 C-Reactive Protein 17.30 mg/dL (0.00-1.30) H 08/12/21 08:11 Total Protein 7.1 g/dL (6.3-8.2) 08/12/21 08:11 Albumin 3.8 g/dL (3.9-5) L 08/12/21 08:11 Albumin/Globulin Ratio 1.2 % 08/12/21 08:11 Urine Color Yellow (Yellow) 08/08/21 23:45 Urine Turbidity Turbid (Clear) 08/08/21 23:45 Urine pH 5.0 (5.0-7.0) 08/08/21 23:45 Ur Specific [place] 1.018 (1.003-1.030) 08/08/21 23:45 Urine Protein 100 mg/dl mg/dL (Negative) 08/08/21 23:45 Urine Glucose (UA) Neg mg/dL (Negative) 08/08/21 23:45 Urine Ketones Tr mg/dL (Negative) 08/08/21 23:45 Urine Blood Neg (Negative) 08/08/21 23:45 Urine Nitrite Neg (Negative) 08/08/21 23:45 Urine Bilirubin Neg (Negative) 08/08/21 23:45 Urine Urobilinogen < 2.0 mg/dL (<2.0) 08/08/21 23:45 Ur Leukocyte Esterase Neg (Negative) 08/08/21 23:45 Urine WBC (Auto) 4.0 /HPF (0.0-6.0) 08/08/21 23:45 Urine RBC (Auto) 23.0 /HPF (0.0-6.0) 08/08/21 23:45 U Epithel Cells (Auto) 2.0 /HPF (0-13.0) 08/08/21 23:45 Urine WBC Clumps 2+ /HPF 08/08/21 23:45 Urine Mucus 1+ /HPF 08/08/21 23:45 Urine Yeast (Budding) 2+ /HPF 08/08/21 23:45 Salicylates < 0.3 mg/dL (2.8-20.0) L 08/08/21 19:26 Urine Opiates Screen Presumptive negative 08/08/21 23:46 Urine Methadone Screen Presumptive negative 08/08/21 23:46 Acetaminophen 5.0 ug/mL (10.0-30.0) L 08/08/21 19:26 Ur Barbiturates Screen Presumptive negative 08/08/21 23:46 Ur Phencyclidine Scrn Presumptive negative 08/08/21 23:46 Ur Amphetamines Screen Presumptive negative 08/08/21 23:46 U Benzodiazepines Scrn Presumptive negative 08/08/21 23:46 Urine Cocaine Screen Presumptive positive 08/08/21 23:46 U Marijuana (THC) Screen Presumptive positive 08/08/21 23:46 Drugs of Abuse Note Disclamer 08/08/21 23:46 Plasma/Serum Alcohol < 0.01 % (0-0.07) 08/08/21 19:16 Hepatitis A IgM Ab Non-reactive (NonReactive) 08/08/21 19: Hep Bs Antigen Non-reactive (Negative) 08/08/21: Hep B Core IgM Ab Non-reactive (NonReactive) 01/19/22 19:26 Hepatitis C Antibody Non-reactive (NonReactive) 08/08/21 19:26 HIV 1&2 Antibody Rapid Non react (Non React) 08/08/21 19:26 HIV P24 Antigen Non react (Non React) 08/08/21 19:26 Guzmán/IV: Voiding Method Urinal Active Medications - Current Medications Current Medications: Generic Name Dose Route Start Last Admin Trade Name Freq PRN Reason Stop Dose Admin Acetaminophen 650 mg 08/08/21 23:16 Acetaminophen 650 Mg Rect Supp MN Q6H PRN Pain MILD(1-3)/Fever >100.5/LACKEY Famotidine 20 mg 08/08/21 22:00 08/11/21 21:10 Famotidine 20 Mg/2 Ml Inj IV 20 mg BID CARLINE Administration Heparin Sodium (Porcine) 5,000 unit 08/09/21 06:00 08/12/21 05:22 Heparin 5,000 Unit/1 Ml Vial SUB-Q 5,000 unit Q8HR CARLINE Administration Hydrophilic Ointment 1 applic 08/08/21 19:12 Lip Therapy Vaseline TP Q2HR PRN Dry Lips Propofol 1,000 mg in 100 mls @ 4.627 mls/hr 08/08/21 20:00 08/10/21 10:12 Diprivan 10 Mg/Ml IV 30 mcg/kg/min TITR CARLINE 27.76 mls/hr Titration Protocol 5 MCG/KG/MIN Levetiracetam 1,000 mg 08/11/21 22:00 08/11/21 21:10 Levetiracetam 500 Mg Tab PO 1,000 mg BID CARLINE Administration Magnesium Hydroxide 30 ml 08/08/21 23:16 Magnesium Hydroxide (Mom) Oral Liqd Udc PO Q4H PRN Constipation Morphine Sulfate 2 mg 08/08/21 23:16 Morphine 2 Mg/1 Ml Inj IV Q4H PRN Pain, Moderate (4-6) Morphine Sulfate 4 mg 08/08/21 23:16 Morphine 4 Mg/1 Ml Inj IV Q4H PRN Pain , Severe (7-10) Multi-Ingred Cream/Lotion/Oil/Oint 1 applic 08/08/21 19:12 Mineral Oil/Petrolatum, White Ophth Oint 3.5 Gm OU Q4HR PRN Dry Eye(s) Senna/Docusate Sodium 1 tab 08/08/21 22:00 08/11/21 21:10 Sennosides/Docusate Sodium 8.6/50 Mg Tab FEEDTUBE 1 tab BID CARLINE Administration Sodium Chloride 10 ml 08/09/21 10:00 08/11/21 21:16 Sodium Chloride 0.9% 10 Ml Flush Syringe IV 10 ml BID CARLINE Administration Sodium Chloride 10 ml 08/08/21 23:16 Sodium Chloride 0.9% 10 Ml Flush Syringe IV PRN PRN LINE FLUSH Nutrition/Malnutrition Assess - Dietary Evaluation Nutrition/Malnutrition Findings: Nutrition Notes Start: 08/09/21 16:08 Freq: Status: Active Protocol: Document 08/09/21 16:08 SHABNAM (Rec: 08/09/21 16:12 SHABNAM [id number]) Nutrition Notes Need for Assessment generated from: MD Order Initial or Follow up Brief Note Current Diet NPO (since 08/08 23:17). Height 5 ft 8 in Weight 154.221 kg [place] Body Weight (kg) 70.00 BMI 51.7 Weight change and time frame None reported at admission. Weight Status Morbidly Obese Subjective/Other Information RD consult for evaluation ofd nutritional intake. Pt currently on NPO, cannot be evaluated at the time; will assess at F/U if feasible. Percent of energy/protein needs met: Pt currently on NPO. Nutrition Intervention Follow-Up By: 08/16/21 Additional Comments Pt will assessed at F/U if feasible. Continue monitoring food tolerance, %PO intake of meals , and BM.
[2021-08-12] MEDS: levETIRAcetam 500 MG TAB PO SCH ×2 (09:48→22:14)
[2021-08-12] MEDS: SENNOSIDES/DOCUSATE SODIUM 8.6/50 MG TAB FEEDTUBE SCH ×2 (09:48→22:14)
[2021-08-12] MEDS: FAMOTIDINE 20 MG/2 ML INJ IV SCH (09:49)
[2021-08-12 10:21] LABS: Platelet Count 68 K/mm3 (140-440)
--- NOTE | 2021-08-12 18:55 | Progress Note ---
Subjective Date of service: 08/12/21 Principal diagnosis: seizure,drug abuse,morbid obesity Objective Vital Signs - 12hr 08/12/21 08/12/21 08/12/21 08:54 09:45 10:00 Temperature 98.6 F Pulse Rate 104 H 96 H Respiratory 18 20 Rate Blood Pressure Blood Pressure 140/98 [Left] O2 Sat by Pulse 92 93 93 Oximetry 08/12/21 08/12/21 11:15 15:57 Temperature 97.9 F 98.6 F Pulse Rate 85 90 Respiratory 20 20 Rate Blood Pressure 142/100 148/107 Blood Pressure [Left] O2 Sat by Pulse 94 92 Oximetry Constitutional: no acute distress, alert, other (morbidly obese) Eyes: non-icteric ENT: oropharynx moist Neck: supple, no JVD (large short neck) Effort: normal Ascultation: Bilateral: clear, diminished breath sounds Cardiovascular: regular rate and rhythm, other (S1,S2) Gastrointestinal: normoactive bowel sounds Integumentary: normal Extremities: no cyanosis, pulses normal Neurologic: pupils equal and round, unable to assess, other (will move extemities when stimulated) Psychiatric: anxious CBC and BMP: 08/12/21 08:11 08/12/21 08:11 ABG, PT/INR, D-dimer: ABG ABG pH 7.296 pH Units (7.350-7.450) L 08/10/21 04:47 ABG pCO2 61.8 mm Hg 08/10/21 04:47 ABG pO2 61.9 mm Hg (80.0-90.0) L 08/10/21 04:47 ABG O2 Saturation 89.5 % (95.0-99.0) L 08/10/21 04:47 PT/INR, D-dimer PT 14.0 Sec. (12.2-14.9) 08/08/21 19:17 INR 0.97 (0.87-1.13) 08/08/21 19:17 D-Dimer > 17209 ng/mlDDU (0-234) H 08/12/21 08:11 Abnormal lab findings: Abnormal Labs 08/08/21 08/08/21 08/08/21 19:10 19:10 19:26 RBC 5.09 H Hgb 15.3 H Hct 49.0 H MCV 96 H MCH MCHC 31 L RDW Plt Count [place] % (Auto) [place] # (Auto) Seg Neutrophils % D-Dimer ABG pH ABG pO2 ABG HCO3 ABG O2 Saturation ABG Base Excess Oxyhemoglobin Sodium 136 L Potassium Chloride 96.4 L Carbon Dioxide Creatinine Glucose 128 H Calcium Lactate Dehydrogenase Total Creatine Kinase 275 H C-Reactive Protein Albumin Salicylates < 0.3 L Acetaminophen 08/08/21 08/08/21 08/09/21 19:26 22:50 03:15 RBC Hgb Hct MCV 96 H MCH 34 H MCHC 35 H RDW 15.5 H Plt Count 124 L [place] % (Auto) 9.2 H [place] # (Auto) Seg Neutrophils % 73.0 H D-Dimer ABG pH ABG pO2 77.8 L ABG HCO3 29.8 H ABG O2 Saturation ABG Base Excess 4.7 H Oxyhemoglobin 94.6 L Sodium Potassium Chloride Carbon Dioxide Creatinine Glucose Calcium Lactate Dehydrogenase Total Creatine Kinase C-Reactive Protein Albumin Salicylates Acetaminophen 5.0 L 08/09/21 08/09/21 08/10/21 03:15 06:00 04:47 RBC Hgb Hct MCV MCH MCHC RDW Plt Count [place] % (Auto) [place] # (Auto) Seg Neutrophils % D-Dimer ABG pH 7.529 H 7.296 L ABG pO2 114.3 H 61.9 L ABG HCO3 28.3 H 29.4 H ABG O2 Saturation 89.5 L ABG Base Excess 5.7 H Oxyhemoglobin 87.6 L Sodium 129 L D Potassium 3.4 L Chloride 92.8 L Carbon Dioxide Creatinine 0.7 L Glucose Calcium 8.0 L D Lactate Dehydrogenase Total Creatine Kinase C-Reactive Protein Albumin Salicylates Acetaminophen 08/10/21 08/12/21 08/12/21 05:48 08:11 08:11 RBC Hgb Hct MCV 95 H MCH MCHC 31 L RDW 15.8 H Plt Count 109 L [place] % (Auto) 10.5 H [place] # (Auto) 1.0 H Seg Neutrophils % 74.2 H D-Dimer > 24588 H ABG pH ABG pO2 ABG HCO3 ABG O2 Saturation ABG Base Excess Oxyhemoglobin Sodium Potassium Chloride Carbon Dioxide Creatinine Glucose Calcium Lactate Dehydrogenase 331 H Total Creatine Kinase C-Reactive Protein 17.30 H Albumin Salicylates Acetaminophen 01/23/22 01/23/22 08:11 08:11 RBC Hgb Hct MCV 96 H MCH MCHC RDW 15.5 H Plt Count 68 L [place] % (Auto) 9.6 H [place] # (Auto) Seg Neutrophils % D-Dimer ABG pH ABG pO2 ABG HCO3 ABG O2 Saturation ABG Base Excess Oxyhemoglobin Sodium Potassium Chloride Carbon Dioxide 31 H Creatinine Glucose Calcium Lactate Dehydrogenase Total Creatine Kinase C-Reactive Protein Albumin 3.8 L Salicylates Acetaminophen Allied health notes reviewed: RT
[2021-08-12] MEDS: FAMOTIDINE 20 MG TAB PO SCH (22:14)
[2021-08-13] MEDS: HEPARIN 5,000 UNIT/1 ML VIAL SUB-Q SCH ×3 (05:52→21:48)
--- NOTE | 2021-08-13 09:07 | Progress Note ---
Assessment and Plan Assessment and plan: 35-year-old -[place] male with known history of obstructive sleep apnea on CPAP at home brought into the emergency room via EMS today for decreased responsiveness. Patient was said to be initially hypoxic but later became responsive after vigorous stimulation. Upon arrival in the emergency room patient denied any complaints. However after evaluation and in the process of being discharged from the emergency room patient was said to have a seizure and went into respiratory distress. He was subsequently intubated in the emergency room. Toxicology screen was positive for marijuana and cocaine. The patient remained on mechanical ventilation but later was extubated and transferred to the floor Seizure disorder Acute hypercapnic hypoxemic respiratory failure Hypokalemia Hyponatremia hypochloremia Obstructive sleep apnea/obesity hypoventilation syndrome Morbid obesity History of polysubstance abuse. UDS positive for cocaine, THC Hospital Course: 08/09/2021: Patient remains on vent. Weaning off MV as sats tolerate. Weaning parameters per CCM. Electrolyte correction with NS+20 MEQ K. Will follow neuro input/workup. Continue keppra IV for reported seizure. 08/10/2021 Patient is weaned off ventilator Still requiring high oxygen levels Hypoventilation 08/11/2021 Patient on high flow oxygen 30 L oxygen Oxygen saturation was around 90 Mild respiratory distress No seizures 08/12/2021. Patient on CPAP-12 at night with FiO2 of 60%. Patient with high flow nasal cannula during the day with 25 L at FiO2 of 65%. Continue to wean oxygen as tolerated. Continue Keppra 1000 mg twice daily and follow-up EEG. Continue seizure precautions. No new seizure activity noted neurology following. Unable to complete MRI due to body habitus. 08/13/2021. Patient noted to have desaturation while falling asleep last night. Patient reportedly refused CPAP. Patient requiring 5 L O2 during the day. We will wean oxygen as tolerated. Continue Keppra 1000 mg twice daily and follow- up EEG. Continue seizure precautions. No new seizure activity noted neurology following. Unable to complete MRI due to body habitus. History Interval history: No new issues overnight Hospitalist Physical - Constitutional Vitals: Temp Pulse Resp BP Pulse Ox 98.3 F 90 22 150/89 93 08/13/21 07:23 08/13/21 07:23 08/13/21 07:23 08/13/21 07:23 08/13/21 07:23 General appearance: Present: no acute distress, well-nourished - EENT Eyes: Present: PERRL, EOM intact ENT: hearing intact, clear oral mucosa, dentition normal - Neck Neck: Present: supple, normal ROM - Respiratory Respiratory effort: normal Respiratory: bilateral: CTA - Cardiovascular Rhythm: regular Heart Sounds: Present: S1 & S2. Absent: gallop, rub - Extremities Extremities: no ischemia, No edema, Full ROM - Abdominal General gastrointestinal: soft, non-tender, non-distended, normal bowel sounds - Integumentary Integumentary: Present: clear, warm, dry - Neurologic Neurologic: CNII-XII intact, moves all extremities Results - Labs CBC & Chem 7: 08/12/21 08:11 08/12/21 08:11 Labs: Laboratory Last Values WBC 8.6 K/mm3 (4.5-11.0) 08/12/21 08:11 RBC 4.65 M/mm3 (3.65-5.03) 08/12/21 08:11 Hgb 14.2 gm/dl (11.8-15.2) 08/12/21 08:11 Hct 44.7 % (35.5-45.6) 08/12/21 08:11 MCV 96 fl (84-94) H 08/12/21 08:11 MCH 31 pg (28-32) 08/12/21 08:11 MCHC 32 % (32-34) 08/12/21 08:11 RDW 15.5 % (13.2-15.2) H 08/12/21 08:11 Plt Count 68 K/mm3 (140-440) L 08/12/21 08:11 Lymph % (Auto) 18.0 % (13.4-35.0) 08/12/21 08:11 [place]mer % (Auto) 9.6 % (0.0-7.3) H 08/12/21 08:11 Eos % (Auto) 3.0 % (0.0-4.3) 08/12/21 08:11 Baso % (Auto) 0.7 % (0.0-1.8) 08/12/21 08:11 Lymph # (Auto) 1.6 K/mm3 (1.2-5.4) 08/12/21 08:11 Gilmer # (Auto) 0.8 K/mm3 (0.0-0.8) 08/12/21 08:11 Eos # (Auto) 0.3 K/mm3 (0.0-0.4) 08/12/21 08:11 Baso # (Auto) 0.1 K/mm3 (0.0-0.1) 08/12/21 08:11 Seg Neutrophils % 68.7 % (40.0-70.0) 08/12/21 08:11 Seg Neutrophils # 5.9 K/mm3 (1.8-7.7) 08/12/21 08:11 PT 14.0 Sec. (12.2-14.9) 08/08/21 19:17 INR 0.97 (0.87-1.13) 08/08/21 19:17 D-Dimer > 68774 ng/mlDDU (0-234) H 08/12/21 08:11 ABG pH 7.296 pH Units (7.350-7.450) L 08/10/21 04:47 ABG pCO2 61.8 mm Hg 08/10/21 04:47 ABG pO2 61.9 mm Hg (80.0-90.0) L 08/10/21 04:47 ABG HCO3 29.4 mmol/L (20.0-26.0) H 08/10/21 04:47 ABG O2 Saturation 89.5 % (95.0-99.0) L 08/10/21 04:47 ABG O2 Content 18.4 (0.0-44) 08/10/21 04:47 ABG Base Excess 1.3 mmol/L (-2.0-3.0) 08/10/21 04:47 ABG Hemoglobin 14.9 gm/dl (14.0-18.0) 08/10/21 04:47 ABG Carboxyhemoglobin 1.4 % (0.0-5.0) 08/10/21 04:47 ABG Methemoglobin 0.6 % (0.0-1.5) 08/10/21 04:47 Oxyhemoglobin 87.6 % (95.0-99.0) L 08/10/21 04:47 FiO2 50 % 08/10/21 04:47 Sodium 140 mmol/L (137-145) 08/12/21 08:11 Potassium 4.1 mmol/L (3.6-5.0) 08/12/21 08:11 Chloride 99.6 mmol/L (98-107) 08/12/21 08:11 Carbon Dioxide 31 mmol/L (22-30) H 08/12/21 08:11 Anion Gap 14 mmol/L 08/12/21 08:11 BUN 9 mg/dL (9-20) 08/12/21 08:11 Creatinine 0.8 mg/dL (0.8-1.3) 08/12/21 08:11 Estimated GFR > 60 ml/min 08/12/21 08:11 BUN/Creatinine Ratio 11 % 08/12/21 08:11 Glucose 98 mg/dL (75-100) 08/12/21 08:11 Glucose 99 mg/dL (75-100) 08/12/21 08:11 Calcium 9.1 mg/dL (8.4-10.2) 08/12/21 08:11 Magnesium 1.80 mg/dL (1.7-2.3) 08/08/21 19:10 Ferritin 270.3 ng/mL (30.0-300.0) 08/12/21 08:11 Total Bilirubin 1.10 mg/dL (0.1-1.2) 08/12/21 08:11 AST 29 units/L (5-40) 08/12/21 08:11 ALT 17 units/L (7-56) 08/12/21 08:11 Alkaline Phosphatase 68 units/L (35-129) 08/12/21 08:11 Lactate Dehydrogenase 331 units/L (91-180) H 08/12/21 08:11 Total Creatine Kinase 275 units/L (55-170) H 08/08/21 19:10 C-Reactive Protein 17.30 mg/dL (0.00-1.30) H 08/12/21 08:11 Total Protein 7.1 g/dL (6.3-8.2) 08/12/21 08:11 Albumin 3.8 g/dL (3.9-5) L 08/12/21 08:11 Albumin/Globulin Ratio 1.2 % 08/12/21 08:11 Procalcitonin 0.29 ng/mL (<0.15) 08/12/21 08:11 Urine Color Yellow (Yellow) 08/08/21 23:45 Urine Turbidity Turbid (Clear) 08/08/21 23:45 Urine pH 5.0 (5.0-7.0) 08/08/21 23:45 Ur Specific Edon 1.018 (1.003-1.030) 08/08/21 23:45 Urine Protein 100 mg/dl mg/dL (Negative) 08/08/21 23:45 Urine Glucose (UA) Neg mg/dL (Negative) 08/08/21 23:45 Urine Ketones Tr mg/dL (Negative) 08/08/21 23:45 Urine Blood Neg (Negative) 08/08/21 23:45 Urine Nitrite Neg (Negative) 08/08/21 23:45 Urine Bilirubin Neg (Negative) 08/08/21 23:45 Urine Urobilinogen < 2.0 mg/dL (<2.0) 08/08/21 23:45 Ur Leukocyte Esterase Neg (Negative) 08/08/21 23:45 Urine WBC (Auto) 4.0 /HPF (0.0-6.0) 08/08/21 23:45 Urine RBC (Auto) 23.0 /HPF (0.0-6.0) 08/08/21 23:45 U Epithel Cells (Auto) 2.0 /HPF (0-13.0) 08/08/21 23:45 Urine WBC Clumps 2+ /HPF 08/08/21 23:45 Urine Mucus 1+ /HPF 08/08/21 23:45 Urine Yeast (Budding) 2+ /HPF 08/08/21 23:45 Salicylates < 0.3 mg/dL (2.8-20.0) L 08/08/21 19:26 Urine Opiates Screen Presumptive negative 08/08/21 23:46 Urine Methadone Screen Presumptive negative 08/08/21 23:46 Acetaminophen 5.0 ug/mL (10.0-30.0) L 08/08/21 19:26 Ur Barbiturates Screen Presumptive negative 08/08/21 23:46 Ur Phencyclidine Scrn Presumptive negative 08/08/21 23:46 Ur Amphetamines Screen Presumptive negative 08/08/21 23:46 U Benzodiazepines Scrn Presumptive negative 08/08/21 23:46 Urine Cocaine Screen Presumptive positive 08/08/21 23:46 U Marijuana (THC) Screen Presumptive positive 08/08/21 23:46 Drugs of Abuse Note Disclamer 08/08/21 23:46 Plasma/Serum Alcohol < 0.01 % (0-0.07) 08/08/21 19:16 Coronavirus (PCR) Negative (Negative) 08/12/21 09:15 Hepatitis A IgM Ab Non-reactive (NonReactive) 08/08/21 19:26 Hep Bs Antigen Non-reactive (Negative) 08/08/21 19:26 Hep B Core IgM Ab Non-reactive (NonReactive) 08/08/21 19:26 Hepatitis C Antibody Non-reactive (NonReactive) 08/08/21 19:26 HIV 1&2 Antibody Rapid Non react (Non React) 08/08/21 19:26 HIV P24 Antigen Non react (Non React) 08/08/21 19:26 Guzmán/IV: Voiding Method Urinal Active Medications - Current Medications Current Medications: Generic Name Dose Route Start Last Admin Trade Name Freq PRN Reason Stop Dose Admin Acetaminophen 650 mg 08/08/21 23:16 Acetaminophen 650 Mg Rect Supp CO Q6H PRN Pain MILD(1-3)/Fever >100.5/LAKCEY Famotidine 20 mg 08/12/21 22:00 08/12/21 22:14 Famotidine 20 Mg Tab PO 20 mg BID CARLINE Administration Heparin Sodium (Porcine) 5,000 unit 08/09/21 06:00 08/13/21 05:52 Heparin 5,000 Unit/1 Ml Vial SUB-Q 5,000 unit Q8HR CARLINE Administration Hydrophilic Ointment 1 applic 08/08/21 19:12 Lip Therapy Vaseline TP Q2HR PRN Dry Lips Levetiracetam 1,000 mg 08/11/21 22:00 08/12/21 22:14 Levetiracetam 500 Mg Tab PO 1,000 mg BID CARLINE Administration Magnesium Hydroxide 30 ml 08/08/21 23:16 Magnesium Hydroxide (Mom) Oral Liqd Udc PO Q4H PRN Constipation Morphine Sulfate 2 mg 08/08/21 23:16 Morphine 2 Mg/1 Ml Inj IV Q4H PRN Pain, Moderate (4-6) Morphine Sulfate 4 mg 08/08/21 23:16 Morphine 4 Mg/1 Ml Inj IV Q4H PRN Pain , Severe (7-10) Multi-Ingred Cream/Lotion/Oil/Oint 1 applic 08/08/21 19:12 Mineral Oil/Petrolatum, White Ophth Oint 3.5 Gm OU Q4HR PRN Dry Eye(s) Senna/Docusate Sodium 1 tab 08/08/21 22:00 08/12/21 22:14 Sennosides/Docusate Sodium 8.6/50 Mg Tab FEEDTUBE 1 tab BID CARLINE Administration Sodium Chloride 10 ml 08/09/21 10:00 08/12/21 22:13 Sodium Chloride 0.9% 10 Ml Flush Syringe IV 10 ml BID CARLINE Administration Sodium Chloride 10 ml 08/08/21 23:16 Sodium Chloride 0.9% 10 Ml Flush Syringe IV PRN PRN LINE FLUSH Nutrition/Malnutrition Assess - Dietary Evaluation Nutrition/Malnutrition Findings: Nutrition Notes Start: 08/09/21 16:08 Freq: Status: Active Protocol: Document 08/09/21 16:08 SHABNAM (Rec: 08/09/21 16:12 SHABNAM [email or web address]) Nutrition Notes Need for Assessment generated from: MD Order Initial or Follow up Brief Note Current Diet NPO (since 08/08 23:17). Height 5 ft 8 in Weight 154.221 kg [place] Body Weight (kg) 70.00 BMI 51.7 Weight change and time frame None reported at admission. Weight Status Morbidly Obese Subjective/Other Information RD consult for evaluation ofd nutritional intake. Pt currently on NPO, cannot be evaluated at the time; will assess at F/U if feasible. Percent of energy/protein needs met: Pt currently on NPO. Nutrition Intervention Follow-Up By: 08/16/21 Additional Comments Pt will assessed at F/U if feasible. Continue monitoring food tolerance, %PO intake of meals , and BM.
[2021-08-13] MEDS: levETIRAcetam 500 MG TAB PO SCH ×3 (09:22→21:49)
[2021-08-13] MEDS: SENNOSIDES/DOCUSATE SODIUM 8.6/50 MG TAB FEEDTUBE SCH ×2 (09:23→21:47)
[2021-08-13] MEDS: FAMOTIDINE 20 MG TAB PO SCH ×2 (09:27→21:47)
--- NOTE | 2021-08-13 12:17 | Progress Note ---
Assessment and Plan 35-year-old -[place] male Morbidly Obese, with known history of obstructive sleep apnea on CPAP at home brought into the emergency room via EMS today for decreased responsiveness. Patient was said to be initially hypoxic but later became responsive after vigorous stimulation. Upon arrival in the emergency room patient denied any complaints. However after evaluation and in the process of being discharged from the emergency room patient was said to have a seizure and went into respiratory distress. He was subsequently intubated in the emergency room. Work-up in the emergency room today, toxicology screen was positive for marijuana and cocaine. Chest x-ray and CT scan of the head was unremarkable. Patient says Marijuana every day. Denies smoking cigaretts. Uses coaine. 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 Not . No children. No known drug allergies. Patient extubated, transfered to telemetry. Patient alert, awake. Resting on 2 litres O2. O2 saturation 92%. No acute respiratory distress at rest. Patient running low grade temp. No leukocytosis. Blood pressure 131/73, pulse 98, respirations 18. Nick virus PCR negative. Chest xray 08/10/21 reported Stable bibasilar densities. Patient is on S/C Heparin and famotidine . CPAP 12 cm H2O stand by in the room to use it during night time and during sleep. Recommend to change to BIPAP 16/8, rate 16, FIO2 28%. I spent critical care time of 40 minutes, obtaining history, review the chart, examine the patient, review chest xray, lab results, talking to the nursing staff and respiratory therapy and work up plan of treatment in this critically ill patient. - Patient Problems (1) Acute on chronic respiratory failure with hypoxia and hypercapnia Current Visit: Yes Status: Acute Plan to address problem: O2 2 litres. Patient is on CPAP 12 cm H2O during sleep. Recommend BIPAP 16/8, rate 16, FIO2 28%. during sleep and for shortness of breath. (2) Body mass index (BMI) of 50-59.9 in adult Current Visit: Yes Status: Acute Plan to address problem: Recommend to loose weight. Exercise and diet. Nutritional evaluation for weight reduction diet. (3) History of sleep apnea Current Visit: Yes Status: Acute Plan to address problem: BIPAP 16/8, rate 16, FIO2 28%. Recommend to loose weight. Maintain sleep hygiene. Recommend not to drive or operate heavy equipment with symptoms of sleep apnea or sleepiness. Avoid alcohol, sedatives and narcotics. (4) Seizure disorder Current Visit: Yes Status: Acute Plan to address problem: Management as per primary care and neurology. (5) Drug abuse Current Visit: Yes Status: Acute Plan to address problem: Counseled to stop using Marijuana and Cocaine. (6) Elevated d-dimer Current Visit: Yes Status: Acute Plan to address problem: Recommend to get CAT scan of chest or V/Q scan. Recommend venous doppler studies of legs. Recommend Therapeutic dose of lovenox or Eliquis. Subjective Date of service: 08/13/21 Principal diagnosis: seizure,drug abuse,morbid obesity Interval history: 35-year-old -[place] male Morbidly Obese, with known history of obstructive sleep apnea on CPAP at home brought into the emergency room via EMS today for decreased responsiveness. Patient was said to be initially hypoxic b ut later became responsive after vigorous stimulation. Upon arrival in the emergency room patient denied any complaints. However after evaluation and in the process of being discharged from the emergency room patient was said to have a seizure and went into respiratory distress. He was subsequently intubated in the emergency room. Work-up in the emergency room today, toxicology screen was positive for marijuana and cocaine. Chest x-ray and CT scan of the head was unremarkable. Patient says Marijuana every day. Denies smoking cigaretts. Uses coaine. 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 Not . No children. No known drug allergies. Patient extubated, transfered to telemetry. Patient alert, awake. Resting on 2 litres O2. O2 saturation 92%. No acute respiratory distress at rest. Patient running low grade temp. No leukocytosis. Blood pressure 131/73, pulse 98, respirations 18. Nick virus PCR negative. Chest xray 08/10/21 reported Stable bibasilar densities. Patient is on S/C Heparin and famotidine . CPAP 12 cm H2O stand by in the room to use it during night time and during sleep. Recommend to change to BIPAP 16/8, rate 16, FIO2 28%. Objective Vital Signs - 12hr 08/13/21 08/13/21 08/13/21 01:14 03:47 04:40 Temperature 97.4 F L Pulse Rate 77 92 H Respiratory 19 18 Rate Blood Pressure 127/79 O2 Sat by Pulse 99 99 100 Oximetry 08/13/21 08/13/21 08/13/21 07:23 10:22 11:33 Temperature 98.3 F 98.8 F Pulse Rate 90 96 H Respiratory 22 24 Rate Blood Pressure 150/89 147/85 O2 Sat by Pulse 93 94 93 Oximetry Constitutional: no acute distress, alert, other (morbidly obese) Eyes: non-icteric ENT: oropharynx moist Neck: supple, no JVD (large short neck) Effort: mildly labored Ascultation: Bilateral: diminished breath sounds Cardiovascular: regular rate and rhythm, other (S1,S2) Gastrointestinal: normoactive bowel sounds Integumentary: normal Extremities: no cyanosis, pulses normal Neurologic: normal mental status, non-focal exam, pupils equal and round, CN II- XII normal, motor strength normal and Psychiatric: mood appropriate, affect normal CBC and BMP: 08/12/21 08:11 08/12/21 08:11 ABG, PT/INR, D-dimer: ABG ABG pH 7.296 pH Units (7.350-7.450) L 08/10/21 04:47 ABG pCO2 61.8 mm Hg 08/10/21 04:47 ABG pO2 61.9 mm Hg (80.0-90.0) L 08/10/21 04:47 ABG O2 Saturation 89.5 % (95.0-99.0) L 08/10/21 04:47 PT/INR, D-dimer PT 14.0 Sec. (12.2-14.9) 08/08/21 19:17 INR 0.97 (0.87-1.13) 08/08/21 19:17 D-Dimer > 33155 ng/mlDDU (0-234) H 08/12/21 08:11 Abnormal lab findings: Abnormal Labs 08/08/21 08/08/21 08/08/21 19:10 19:10 19:26 RBC 5.09 H Hgb 15.3 H Hct 49.0 H MCV 96 H MCH MCHC 31 L RDW Plt Count Haywood % (Auto) [place] # (Auto) Seg Neutrophils % D-Dimer ABG pH ABG pO2 ABG HCO3 ABG O2 Saturation ABG Base Excess Oxyhemoglobin Sodium 136 L Potassium Chloride 96.4 L Carbon Dioxide Creatinine Glucose 128 H Calcium Lactate Dehydrogenase Total Creatine Kinase 275 H C-Reactive Protein Albumin Salicylates < 0.3 L Acetaminophen 08/08/21 08/08/21 08/09/21 19:26 22:50 03:15 RBC Hgb Hct MCV 96 H MCH 34 H MCHC 35 H RDW 15.5 H Plt Count 124 L [place] % (Auto) 9.2 H [place] # (Auto) Seg Neutrophils % 73.0 H D-Dimer ABG pH ABG pO2 77.8 L ABG HCO3 29.8 H ABG O2 Saturation ABG Base Excess 4.7 H Oxyhemoglobin 94.6 L Sodium Potassium Chloride Carbon Dioxide Creatinine Glucose Calcium Lactate Dehydrogenase Total Creatine Kinase C-Reactive Protein Albumin Salicylates Acetaminophen 5.0 L 08/09/21 08/09/21 08/10/21 03:15 06:00 04:47 RBC Hgb Hct MCV MCH MCHC RDW Plt Count [place] % (Auto) [place] # (Auto) Seg Neutrophils % D-Dimer ABG pH 7.529 H 7.296 L ABG pO2 114.3 H 61.9 L ABG HCO3 28.3 H 29.4 H ABG O2 Saturation 89.5 L ABG Base Excess 5.7 H Oxyhemoglobin 87.6 L Sodium 129 L D Potassium 3.4 L Chloride 92.8 L Carbon Dioxide Creatinine 0.7 L Glucose Calcium 8.0 L D Lactate Dehydrogenase Total Creatine Kinase C-Reactive Protein Albumin Salicylates Acetaminophen 08/10/21 08/12/21 08/12/21 05:48 08:11 08:11 RBC Hgb Hct MCV 95 H MCH MCHC 31 L RDW 15.8 H Plt Count 109 L [place] % (Auto) 10.5 H [place] # (Auto) 1.0 H Seg Neutrophils % 74.2 H D-Dimer > 50059 H ABG pH ABG pO2 ABG HCO3 ABG O2 Saturation ABG Base Excess Oxyhemoglobin Sodium Potassium Chloride Carbon Dioxide Creatinine Glucose Calcium Lactate Dehydrogenase 331 H Total Creatine Kinase C-Reactive Protein 17.30 H Albumin Salicylates Acetaminophen 08/12/21 08/12/21 08:11 08:11 RBC Hgb Hct MCV 96 H MCH MCHC RDW 15.5 H Plt Count 68 L [place] % (Auto) 9.6 H [place] # (Auto) Seg Neutrophils % D-Dimer ABG pH ABG pO2 ABG HCO3 ABG O2 Saturation ABG Base Excess Oxyhemoglobin Sodium Potassium Chloride Carbon Dioxide 31 H Creatinine Glucose Calcium Lactate Dehydrogenase Total Creatine Kinase C-Reactive Protein Albumin 3.8 L Salicylates Acetaminophen Chest x-ray: report reviewed, image reviewed Additional Studies: CHEST 1 VIEW 08/10/2021 3:53 AM INDICATION / CLINICAL INFORMATION: follow up respiratory failure. COMPARISON: 08/08/21 FINDINGS: SUPPORT DEVICES: Tubes and lines are in expected position. HEART / MEDIASTINUM: Stable. LUNGS / PLEURA: Mild bibasilar densities are stable. No pneumothorax. ADDITIONAL FINDINGS: No significant additional findings. IMPRESSION: 1. Tubes and lines in expected position. Stable bibasilar densities. Allied health notes reviewed: RT
--- NOTE | 2021-08-13 13:29 | Consultation ---
History of Present Illness - Reason for Consult Consult date: 08/13/21 - History of Present Illness 35-year-old male past medical history sleep apnea, morbid obesity presented to hospital with decreased responsiveness. OHe was initially found to be hypoxic, but improved. He was nearly discharged in the ER, however he was found to have a seizure and went to respiratory distress. He was intubated at that time, subsequently extubated, now on the floor. Drug screen positive for marijuana a nd cocaine. Afebrile since admission with a white count 8.6. Procalcitonin mildly elevated at 0.29. Covid negative. HIV negative renal function normal. Imaging personally reviewed: Chest x-ray: Bibasilar densities. Past History Past Medical History: other (Morbid Obesity, Obstructive Sleep Apnea) Past Surgical History: No surgical history Social history: smoking (Current daily smoker) Family history: no significant family history Medications and Allergies Allergies Allergy/AdvReac Type Severity Reaction Status Date / Time No Known Allergies Allergy Verified 08/09/21 15:41 Home Medications Medication Instructions Recorded Confirmed Last Taken Type Ketotifen Fumarate [Zaditor] 2 drop OP BID PRN #5 ml 06/22/19 08/11/21 Unknown Rx Polymyxin B Sulf/Trimethoprim 2 drop OP Q3H 10 Days #10 ml 06/22/19 08/11/21 Unknown Rx [Polytrim Eye Drops] cephALEXin [Keflex] 500 mg PO Q12HR #20 cap 01/01/20 08/11/21 Unknown Rx Ibuprofen [Motrin 800 MG tab] 800 mg PO Q8HR PRN #20 tablet 02/26/20 08/11/21 Unknown Rx methOCARBAMOL [Robaxin TAB] 750 mg PO Q8H PRN #30 tablet 02/26/20 08/11/21 Unknown Rx Acetaminophen/Codeine [Tylenol 1 tab PO Q6H PRN #12 tab 12/26/20 08/11/21 Unknown Rx /Codeine # 3 tab] Naproxen 500 mg PO BID #20 tablet 05/06/21 08/11/21 Unknown Rx Active Meds: Active Medications Acetaminophen (Acetaminophen 650 Mg Rect Supp) 650 mg [place] Q6H PRN PRN Reason: Pain MILD(1-3)/Fever >100.5/LACKEY Famotidine (Famotidine 20 Mg Tab) 20 mg PO BID CARLINE Last Admin: 08/13/21 09:27 Dose: 20 mg Heparin Sodium (Porcine) (Heparin 5,000 Unit/1 Ml Vial) 5,000 unit SUB-Q Q8HR [facility] Last Admin: 08/13/21 05:52 Dose: 5,000 unit Hydrophilic Ointment (Lip Therapy Vaseline) 1 applic TP Q2HR PRN PRN Reason: Dry Lips Levetiracetam (Levetiracetam 500 Mg Tab) 1,000 mg PO BID [facility] Last Admin: 08/13/21 09:22 Dose: 1,000 mg Magnesium Hydroxide (Magnesium Hydroxide (Mom) Oral Liqd Udc) 30 ml PO Q4H PRN PRN Reason: Constipation Morphine Sulfate (Morphine 2 Mg/1 Ml Inj) 2 mg IV Q4H PRN PRN Reason: Pain, Moderate (4-6) Morphine Sulfate (Morphine 4 Mg/1 Ml Inj) 4 mg IV Q4H PRN PRN Reason: Pain , Severe (7-10) Multi-Ingred Cream/Lotion/Oil/Oint (Mineral Oil/Petrolatum, White Ophth Oint 3.5 Gm) 1 applic OU Q4HR PRN PRN Reason: Dry Eye(s) Senna/Docusate Sodium (Sennosides/Docusate Sodium 8.6/50 Mg Tab) 1 tab FEEDTUBE BID [facility] Last Admin: 08/13/21 09:23 Dose: 1 tab Sodium Chloride (Sodium Chloride 0.9% 10 Ml Flush Syringe) 10 ml IV BID [facility] Last Admin: 08/13/21 09:33 Dose: 10 ml Sodium Chloride (Sodium Chloride 0.9% 10 Ml Flush Syringe) 10 ml IV PRN PRN PRN Reason: LINE FLUSH Review of Systems ROS unobtainable: due to mental status Physical Examination - Physical Exam Narrative exam: Physical Exam: Constitutional: Alert, cooperative. No acute distress Head, Ears, Nose: Normocephalic, atraumatic. External ears, nose normal Eyes: Conjunctivae/corneas clear. No icterus. No ptosis. Neck: Supple, no meningeal signs Oral: dentition fair, no thrush Cardiovascular: S1, S2 normal. Respiratory: Good air entry, clear to auscultation bilaterally GI: Soft, non-tender; bowel sounds normal. No peritoneal signs. Musculoskeletal: No pedal edema, no cyanosis. Skin: No rash or abscess Hem/Lymphatic: No palpable cervical or supraclavicular nodes. No lymphangitis Psych: Mood ok. Affect normal Neurological: Awake, alert, oriented. No gross abnormality - Constitutional Vitals: Vital Signs Temp Pulse Resp BP Pulse Ox 98.8 F 96 H 24 147/85 93 08/13/21 11:33 08/13/21 11:33 08/13/21 11:33 08/13/21 11:33 08/13/21 11:33 Temperature -Last 24 Hours Temperature 98.8 F Temperature 98.3 F Temperature 97.4 F Temperature 99.0 F Temperature 98.6 F Results - Labs CBC & Chem 7: 08/12/21 08:11 08/12/21 08:11 Assessment and Plan Cultures: Blood culture no growth A/P: 35-year-old man past medical history morbid obesity, sleep apnea now with #Seizure: Witnessed in ER. Intubated for airway protection, now extubated. On 2 L nasal cannula. Otherwise no infectious signs. Recs: -No need for antibiotics Thank you for the consult, we will sign off. Please call for questions. Sonali Valdes MD [facility] ([facility] O: [phone] F: [phone]
--- NOTE | 2021-08-13 13:58 | Progress Note ---
Assessment and Plan Assessment and Plan - Patient Problems # Acute hypercapnic respiratory failure -Patient has known history of obstructive sleep apnea -Improved # History of sleep apnea -Patient uses CPAP at home.not compling #Morbid obesity with BMI of 50.0-59.9, adult - MRI brain unable to do - try to loss weight need PCP follow up -Dietary evaluation requested. # Seizure disorder New onset -- possibly provoked -Keppra 1000 mg bid-- will decrease to 750 mg bid -EEG is is unremarkable -Seizure precaution , no driving - maintain keppra for now due to multiple risk factor-- follow up with neurology -- instructed to stop Recreational drugs and no driving -Will place on seizure precautions. # Electrolytes abnormality,NA# [phone] # Recreational drug abuse -UDS is positive for cocain and marijuana -MRI brain is unable to do due to over weight >390 Lbs -maintain keppra -stop recreational drug abuse - echo is pending # DVT prophylaxis -Patient placed on subcutaneous heparin. # Full code status -Patient is full code. will sign off -review ECHO is pending Subjective Date of service: 08/13/21 Principal diagnosis: seizure,drug abuse,morbid obesity Interval history: today he is more alert interactive, placed on keppra 1000 mg bid -MRI brain could not do -and EEG is unremarkable Objective - Vital Sign Vital Signs - 12hr 08/13/21 08/13/21 08/13/21 03:47 04:40 07:23 Temperature 97.4 F L 98.3 F Pulse Rate 77 92 H 90 Respiratory 19 18 22 Rate Blood Pressure 127/79 150/89 O2 Sat by Pulse 99 100 93 Oximetry 08/13/21 08/13/21 10:22 11:33 Temperature 98.8 F Pulse Rate 96 H Respiratory 24 Rate Blood Pressure 147/85 O2 Sat by Pulse 94 93 Oximetry - General Apperance Constitutional: comfortable - EENT EENT: PERRL, mucous membranes moist - Respiratory Respiratory: lungs clear, rhonchi, stridor - Cardiovascular Cardiovascular: regular rate, normal S1, normal S2 Extremities: no peripheral edema bilat, no clubbing, cyanosis - Gastrointestinal Gastrointestinal: normoactive bowel sounds - Integumentary Integumentary: normal - Neurologic Cranial nerve examination: PERRL, EOMI, intact Speech examination: intact Detailed motor examination: grossly full strength in - Laboratory Findings CBC and BMP: 08/12/21 08:11 08/12/21 08:11 Abnormal Lab Findings: Abnormal Labs 08/08/21 08/08/21 08/08/21 19:10 19:10 19:26 RBC 5.09 H Hgb 15.3 H Hct 49.0 H MCV 96 H MCH MCHC 31 L RDW Plt Count [place] % (Auto) [place] # (Auto) Seg Neutrophils % D-Dimer ABG pH ABG pO2 ABG HCO3 ABG O2 Saturation ABG Base Excess Oxyhemoglobin Sodium 136 L Potassium Chloride 96.4 L Carbon Dioxide Creatinine Glucose 128 H Calcium Lactate Dehydrogenase Total Creatine Kinase 275 H C-Reactive Protein Albumin Salicylates < 0.3 L Acetaminophen 08/08/21 08/08/21 08/09/21 19:26 22:50 03:15 RBC Hgb Hct MCV 96 H MCH 34 H MCHC 35 H RDW 15.5 H Plt Count 124 L [place] % (Auto) 9.2 H [place] # (Auto) Seg Neutrophils % 73.0 H D-Dimer ABG pH ABG pO2 77.8 L ABG HCO3 29.8 H ABG O2 Saturation ABG Base Excess 4.7 H Oxyhemoglobin 94.6 L Sodium Potassium Chloride Carbon Dioxide Creatinine Glucose Calcium Lactate Dehydrogenase Total Creatine Kinase C-Reactive Protein Albumin Salicylates Acetaminophen 5.0 L 08/09/21 08/09/21 08/10/21 03:15 06:00 04:47 RBC Hgb Hct MCV MCH MCHC RDW Plt Count [place] % (Auto) [place] # (Auto) Seg Neutrophils % D-Dimer ABG pH 7.529 H 7.296 L ABG pO2 114.3 H 61.9 L ABG HCO3 28.3 H 29.4 H ABG O2 Saturation 89.5 L ABG Base Excess 5.7 H Oxyhemoglobin 87.6 L Sodium 129 L D Potassium 3.4 L Chloride 92.8 L Carbon Dioxide Creatinine 0.7 L Glucose Calcium 8.0 L D Lactate Dehydrogenase Total Creatine Kinase C-Reactive Protein Albumin Salicylates Acetaminophen 08/10/21 08/12/21 08/12/21 05:48 08:11 08:11 RBC Hgb Hct MCV 95 H MCH MCHC 31 L RDW 15.8 H Plt Count 109 L [place] % (Auto) 10.5 H [place] # (Auto) 1.0 H Seg Neutrophils % 74.2 H D-Dimer > 69801 H ABG pH ABG pO2 ABG HCO3 ABG O2 Saturation ABG Base Excess Oxyhemoglobin Sodium Potassium Chloride Carbon Dioxide Creatinine Glucose Calcium Lactate Dehydrogenase 331 H Total Creatine Kinase C-Reactive Protein 17.30 H Albumin Salicylates Acetaminophen 08/12/21 08/12/21 08:11 08:11 RBC Hgb Hct MCV 96 H MCH MCHC RDW 15.5 H Plt Count 68 L [place] % (Auto) 9.6 H [place] # (Auto) Seg Neutrophils % D-Dimer ABG pH ABG pO2 ABG HCO3 ABG O2 Saturation ABG Base Excess Oxyhemoglobin Sodium Potassium Chloride Carbon Dioxide 31 H Creatinine Glucose Calcium Lactate Dehydrogenase Total Creatine Kinase C-Reactive Protein Albumin 3.8 L Salicylates Acetaminophen
[2021-08-14] MEDS: HEPARIN 5,000 UNIT/1 ML VIAL SUB-Q SCH ×3 (06:02→22:26)
[2021-08-14] MEDS: levETIRAcetam 500 MG TAB PO SCH ×2 (09:17→22:25)
[2021-08-14] MEDS: FAMOTIDINE 20 MG TAB PO SCH ×2 (09:18→22:25)
[2021-08-14] MEDS: SENNOSIDES/DOCUSATE SODIUM 8.6/50 MG TAB FEEDTUBE SCH ×2 (09:18→22:25)
--- NOTE | 2021-08-14 12:55 | Discharge Summary ---
Providers - Providers Date of Admission: 08/08/21 23:16 Date of discharge: 08/14/21 Attending physician: SUE SEPULVEDA MD 08/08/21 19:12 Consult to Dietitian/Nutrition [CONS] Routine Physician Instructions: Reason For Exam: Reason for Consult: Evaluate nutritional intake Consult to Physician [CONS] Stat Comment: Consulting Provider: SOPHIA LORENZO Physician Instructions: Reason For Exam: acute resp failure 08/09/21 03:39 Consult to Physician [CONS] Routine Comment: Consulting Provider: DILLON KELLY Physician Instructions: Reason For Exam: Seizure disorder 08/12/21 02:39 Consult to Physician [CONS] Routine Comment: Consulting Provider: DAVY DASH Physician Instructions: Reason For Exam: Covid/SIRS 08/14/21 10:00 Consult to Wound/ET Nurse [CONS] Urgent Reason For Exam: wound eval Primary care physician: [employer] [employer] Hospitalization Reason for admission: Acute hypercapnic and hypoxemic respiratory failure Condition: Critical Pertinent studies: Reviewed. Procedures: Mechanical ventilation Hospital course: Patient is a 35-year-old male with past medical history of obstructive sleep apnea on CPAP (patient admits to being nonadherent), morbid obesity, and tobacco dependence who presented with decreased responsiveness after being found at home. The patient was found to be hypoxic upon presentation and required vigorous stimulation to awaken. While in the ED, the patient had a seizure and went into respiratory distress requiring intubation for airway protection. The patient was found to be positive for marijuana and cocaine on his toxicology screen. The patient was admitted to the ICU for management. The patient was successfully extubated successfully without any complications. Neurology was consulted for seizure management; however, the patient was unable to get an MRI given his body habitus. An EEG was performed, and it was found to be unremarkable. The patient will continue on Keppra 750 mg twice daily. The patient was instructed about his need to follow-up with neurology in the outpatient setting and to stop recreational drugs and driving in the meantime. The patient has been utilizing CPAP at night (priorly prescribed this). The patient was also counseled about the importance of weight loss, and the patient expresses understanding. The patient is medically cleared for discharge. Disposition: HOME / SELF CARE / HOMELESS Final Discharge Diagnosis (Prints w/discharge instructions): Acute hypercapnic and hypoxemic respiratory failure, seizure disorder, obstructive sleep apnea, obesity hypoventilation syndrome, polysubstance abuse, morbid obesity, hypokalemia, hyponatremia Time spent for discharge: 45 min Core Measure Documentation - Palliative Care Palliative Care/ Comfort Measures: Not Applicable - Core Measures Any of the following diagnoses?: none Exam - Constitutional Vitals: Temp Pulse Resp BP Pulse Ox 97.7 F 89 18 111/77 90 08/14/21 09:29 08/14/21 09:29 08/14/21 10:00 08/14/21 09:29 08/14/21 10:00 General appearance: Present: no acute distress, well-nourished, obese - EENT Eyes: Present: PERRL, EOM intact ENT: hearing intact, clear oral mucosa, dentition normal - Neck Neck: Present: supple, normal ROM - Respiratory Respiratory effort: normal Respiratory: bilateral: diminished - Cardiovascular Rhythm: regular Heart Sounds: Present: S1 & S2 - Extremities Extremities: no ischemia, pulses intact, pulses symmetrical, No edema, normal temperature, normal color, Full ROM Peripheral Pulses: within normal limits - Abdominal General gastrointestinal: Present: soft, non-tender, non-distended, normal bowel sounds Male genitourinary: Present: deferred - Rectal Rectal Exam: deferred - Integumentary Integumentary: Present: clear, warm, dry - Musculoskeletal Musculoskeletal: strength equal bilaterally - Psychiatric Psychiatric: appropriate mood/affect, intact judgment & insight, memory intact, cooperative - Neurologic Neurologic: CNII-XII intact, moves all extremities - Allied Health Allied health notes reviewed: nursing Plan Activity: advance as tolerated, no driving until cleared by PCP Diet: low fat Additional Instructions: Patient is a 35-year-old male with past medical history of obstructive sleep apnea on CPAP (patient admits to being nonadherent), morbid obesity, and tobacco dependence who presented with decreased responsiveness after being found at home. The patient was found to be hypoxic upon presentation and required vigorous stimulation to awaken. While in the ED, the patient had a seizure and went into respiratory distress requiring intubation for airway protection. The patient was found to be positive for marijuana and cocaine on his toxicology screen. The patient was admitted to the ICU for management. The patient was successfully extubated successfully without any complications. Neurology was consulted for seizure management; however, the patient was unable to get an MRI given his body habitus. An EEG was performed, and it was found to be unremarkable. The patient will continue on Keppra 750 mg twice daily. The patient was instructed about his need to follow-up with neurology in the outpatient setting and to stop recreational drugs and driving in the meantime. The patient has been utilizing CPAP at night (priorly prescribed this). The patient was also counseled about the importance of weight loss, and the patient expresses understanding. The patient is medically cleared for discharge. Care Plan Goals: Patient is medically cleared for discharge. Assessment: Patient is a 35-year-old male with past medical history of obstructive sleep apnea on CPAP (patient admits to being nonadherent), morbid obesity, and tobacco dependence who presented with decreased responsiveness after being found at home. The patient was found to be hypoxic upon presentation and required vigorous stimulation to awaken. While in the ED, the patient had a seizure and went into respiratory distress requiring intubation for airway protection. The patient was found to be positive for marijuana and cocaine on his toxicology screen. The patient was admitted to the ICU for management. The patient was successfully extubated successfully without any complications. Neurology was consulted for seizure management; however, the patient was unable to get an MRI given his body habitus. An EEG was performed, and it was found to be unremarkable. The patient will continue on Keppra 750 mg twice daily. The patient was instructed about his need to follow-up with neurology in the outpatient setting and to stop recreational drugs and driving in the meantime. The patient has been utilizing CPAP at night (priorly prescribed this). The patient was also counseled about the importance of weight loss, and the patient expresses understanding. The patient is medically cleared for discharge. Follow up with: PRIMARY CAREMD [Primary Care Provider] - 3-5 Days Forms: Work/School Release Form Prescriptions: levETIRAcetam [Keppra TAB] 750 mg PO BID #60 tablet
--- NOTE | 2021-08-14 13:20 | Vascular Lab Report ---
DUPLEX DOPPLER LOWER EXTREMITY VEINS, BILATERAL INDICATION / CLINICAL INFORMATION: Assess for possible DVT. TECHNIQUE: Duplex doppler imaging was performed through the veins of both lower extremities using jamaal ous compression and other maneuvers. COMPARISON: Bilateral lower extremity venous Doppler 01/07/2021. FINDINGS: RIGHT COMMON FEMORAL VEIN: Negative. RIGHT FEMORAL VEIN: Negative. RIGHT POPLITEAL VEIN: Negative. RIGHT CALF VEINS: Negative. LEFT COMMON FEMORAL VEIN: Negative. LEFT FEMORAL VEIN: Negative. LEFT POPLITEAL VEIN: Negative. LEFT CALF VEINS: Negative. ADDITIONAL FINDINGS: None. IMPRESSION: 1. Occlusive superficial thrombus within the left greater saphenous vein. 2. No sonographic evidence for DVT in either lower extremity. Scribed by: Siri Mahmood RDMS, RVT Scribed: 08/14/2021 11:28 AM I have reviewed the images, agree with this report, and edited this report as needed. Signer Name: Shekhar Cohn MD Signed: 08/14/2021 1:15 PM Workstation Name: [id number]
--- NOTE | 2021-08-14 23:11 | Progress Note ---
Assessment and Plan 35-year-old -Armenian male Morbidly Obese, with known history of obstructive sleep apnea on CPAP at home brought into the emergency room via EMS today for decreased responsiveness. Patient was said to be initially hypoxic but later became responsive after vigorous stimulation. Upon arrival in the emergency room patient denied any complaints. However after evaluation and in the process of being discharged from the emergency room patient was said to have a seizure and went into respiratory distress. He was subsequently intubated in the emergency room. Work-up in the emergency room today, toxicology screen was positive for marijuana and cocaine. Chest x-ray and CT scan of the head was unremarkable. Patient says Marijuana every day. Denies smoking cigaretts. Uses coaine. 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 Not . No children. No known drug allergies. Patient extubated, transfered to telemetry. Patient alert, awake. Resting on 2 litres O2. O2 saturation 93%. No acute respiratory distress at rest. Patient running low grade temp. No leukocytosis. Blood pressure 121/85, pulse 102, respirations 15. Nick virus PCR negative. Chest xray 08/10/21 reported Stable bibasilar densities. Venous doppler studies of legs done 08/14/21 reported Occlusive superficial thrombus within the left greater saphenous vein. No sonographic evidence for DVT in either lower extremity. Patient is on S/C Heparin and famotidine . In view of elevated D dimer and Occlusive superficial thrombus within the left greater saphenous vein. Recommend therapeutic dose of Lovenox or eliquis. CPAP 12 cm H2O stand by in the room to use it during night time and during sleep. Recommend to change to BIPAP 16/8, rate 16, FIO2 28%. I spent critical care time of 33 minutes, review the chart, examine the patient, review chest xray, lab results, talking to the nursing staff and respiratory therapy and work up plan of treatment in this critically ill patient. - Patient Problems (1) Acute on chronic respiratory failure with hypoxia and hypercapnia Current Visit: Yes Status: Acute Plan to address problem: O2 2 litres. Patient is on CPAP 12 cm H2O during sleep. Recommend BIPAP 16/8, rate 16, FIO2 28%. during sleep and for shortness of breath. (2) Body mass index (BMI) of 50-59.9 in adult Current Visit: Yes Status: Acute Plan to address problem: Recommend to loose weight. Exercise and diet. Nutritional evaluation for weight reduction diet. (3) History of sleep apnea Current Visit: Yes Status: Acute Plan to address problem: BIPAP 16/8, rate 16, FIO2 28%. Recommend to loose weight. Maintain sleep hygiene. Recommend not to drive or operate heavy equipment with symptoms of sleep apnea or sleepiness. Avoid alcohol, sedatives and narcotics. (4) Seizure disorder Current Visit: Yes Status: Acute Plan to address problem: Management as per primary care and neurology. (5) Drug abuse Current Visit: Yes Status: Acute Plan to address problem: Counseled to stop using Marijuana and Cocaine. (6) Elevated d-dimer Current Visit: Yes Status: Acute Plan to address problem: Recommend to get CAT scan of chest or V/Q scan. Recommend Therapeutic dose of lovenox or Eliquis. Subjective Date of service: 08/14/21 Principal diagnosis: seizure,drug abuse,morbid obesity Interval history: 35-year-old -Armenian male Morbidly Obese, with known history of obstructive sleep apnea on CPAP at home brought into the emergency room via EMS today for decreased responsiveness. Patient was said to be initially hypoxic but later became responsive after vigorous stimulation. Upon arrival in the emergency room patient denied any complaints. However after evaluation and in the process of being discharged from the emergency room enrique vallejo was said to have a seizure and went into respiratory distress. He was subsequently intubated in the emergency room. Work-up in the emergency room today, toxicology screen was positive for marijua na and cocaine. Chest x-ray and CT scan of the head was unremarkable. Patient says Marijuana every day. Denies smoking cigaretts. Uses coaine. 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 Not . No children. No known drug allergies. Patient extubated, transfered to telemetry. Patient alert, awake. Resting on 2 litres O2. O2 saturation 93%. No acute respiratory distress at rest. Patient running low grade temp. No leukocytosis. Blood pressure 121/85, pulse 102, respirations 15. Nick virus PCR negative. Chest xray 08/10/21 reported Stable bibasilar densities. Venous doppler studies of legs done 08/14/21 reported Occlusive superficial thrombus within the left greater saphenous vein. No sonographic evidence for DVT in either lower extremity. Patient is on S/C Heparin and famotidine . In view of elevated D dimer and Occlusive superficial thrombus within the left greater saphenous vein. Recommend therapeutic dose of Lovenox or eliquis. CPAP 12 cm H2O stand by in the room to use it during night time and during sleep. Recommend to change to BIPAP 16/8, rate 16, FIO2 28%. Objective Vital Signs - 12hr 08/14/21 08/14/21 08/14/21 17:51 19:50 22:37 Temperature 98.3 F 98.3 F Pulse Rate 100 H 102 H Respiratory 18 15 Rate Blood Pressure 134/75 121/85 O2 Sat by Pulse 90 93 94 Oximetry Constitutional: no acute distress, alert, other (morbidly obese) Eyes: non-icteric ENT: oropharynx moist Neck: supple, no JVD (large short neck) Effort: mildly labored Ascultation: Bilateral: diminished breath sounds Cardiovascular: regular rate and rhythm, other (S1,S2) Gastrointestinal: normoactive bowel sounds Integumentary: normal Extremities: no cyanosis, pulses normal Neurologic: normal mental status, non-focal exam, pupils equal and round, CN II- XII normal, motor strength normal and Psychiatric: mood appropriate, affect normal CBC and BMP: 08/12/21 08:11 08/12/21 08:11 ABG, PT/INR, D-dimer: ABG ABG pH 7.296 pH Units (7.350-7.450) L 08/10/21 04:47 ABG pCO2 61.8 mm Hg 08/10/21 04:47 ABG pO2 61.9 mm Hg (80.0-90.0) L 08/10/21 04:47 ABG O2 Saturation 89.5 % (95.0-99.0) L 08/10/21 04:47 PT/INR, D-dimer PT 14.0 Sec. (12.2-14.9) 08/08/21 19:17 INR 0.97 (0.87-1.13) 08/08/21 19:17 D-Dimer > 19416 ng/mlDDU (0-234) H 08/12/21 08:11 Abnormal lab findings: Abnormal Labs 08/08/21 08/08/21 08/08/21 19:10 19:10 19:26 RBC 5.09 H Hgb 15.3 H Hct 49.0 H MCV 96 H MCH MCHC 31 L RDW Plt Count [place] % (Auto) [place] # (Auto) Seg Neutrophils % D-Dimer ABG pH ABG pO2 ABG HCO3 ABG O2 Saturation ABG Base Excess Oxyhemoglobin Sodium 136 L Potassium Chloride 96.4 L Carbon Dioxide Creatinine Glucose 128 H Calcium Lactate Dehydrogenase Total Creatine Kinase 275 H C-Reactive Protein Albumin Salicylates < 0.3 L Acetaminophen 08/08/21 08/08/21 08/09/21 19:26 22:50 03:15 RBC Hgb Hct MCV 96 H MCH 34 H MCHC 35 H RDW 15.5 H Plt Count 124 L [place] % (Auto) 9.2 H [place] # (Auto) Seg Neutrophils % 73.0 H D-Dimer ABG pH ABG pO2 77.8 L ABG HCO3 29.8 H ABG O2 Saturation ABG Base Excess 4.7 H Oxyhemoglobin 94.6 L Sodium Potassium Chloride Carbon Dioxide Creatinine Glucose Calcium Lactate Dehydrogenase Total Creatine Kinase C-Reactive Protein Albumin Salicylates Acetaminophen 5.0 L 08/09/21 08/09/21 08/10/21 03:15 06:00 04:47 RBC Hgb Hct MCV MCH MCHC RDW Plt Count [place] % (Auto) [place] # (Auto) Seg Neutrophils % D-Dimer ABG pH 7.529 H 7.296 L ABG pO2 114.3 H 61.9 L ABG HCO3 28.3 H 29.4 H ABG O2 Saturation 89.5 L ABG Base Excess 5.7 H Oxyhemoglobin 87.6 L Sodium 129 L D Potassium 3.4 L Chloride 92.8 L Carbon Dioxide Creatinine 0.7 L Glucose Calcium 8.0 L D Lactate Dehydrogenase Total Creatine Kinase C-Reactive Protein Albumin Salicylates Acetaminophen 08/10/21 08/12/21 08/12/21 05:48 08:11 08:11 RBC Hgb Hct MCV 95 H MCH MCHC 31 L RDW 15.8 H Plt Count 109 L [place] % (Auto) 10.5 H [place] # (Auto) 1.0 H Seg Neutrophils % 74.2 H D-Dimer > 76129 H ABG pH ABG pO2 ABG HCO3 ABG O2 Saturation ABG Base Excess Oxyhemoglobin Sodium Potassium Chloride Carbon Dioxide Creatinine Glucose Calcium Lactate Dehydrogenase 331 H Total Creatine Kinase C-Reactive Protein 17.30 H Albumin Salicylates Acetaminophen 08/12/21 08/12/21 08:11 08:11 RBC Hgb Hct MCV 96 H MCH MCHC RDW 15.5 H Plt Count 68 L [place] % (Auto) 9.6 H [place] # (Auto) Seg Neutrophils % D-Dimer ABG pH ABG pO2 ABG HCO3 ABG O2 Saturation ABG Base Excess Oxyhemoglobin Sodium Potassium Chloride Carbon Dioxide 31 H Creatinine Glucose Calcium Lactate Dehydrogenase Total Creatine Kinase C-Reactive Protein Albumin 3.8 L Salicylates Acetaminophen Prior PFT's, U/S of legs: report reviewed, image reviewed Additional Studies: DUPLEX DOPPLER LOWER EXTREMITY VEINS, BILATERAL INDICATION / CLINICAL INFORMATION: Assess for possible DVT. TECHNIQUE: Duplex doppler imaging was performed through the veins of both lower extremities using venous compression and other maneuvers. COMPARISON: Bilateral lower extremity venous Doppler 01/07/2021. FINDINGS: RIGHT COMMON FEMORAL VEIN: Negative. RIGHT FEMORAL VEIN: Negative. RIGHT POPLITEAL VEIN: Negative. RIGHT CALF VEINS: Negative. LEFT COMMON FEMORAL VEIN: Negative. LEFT FEMORAL VEIN: Negative. LEFT POPLITEAL VEIN: Negative. LEFT CALF VEINS: Negative. ADDITIONAL FINDINGS: None. IMPRESSION: 1. Occlusive superficial thrombus within the left greater saphenous vein. 2. No sonographic evidence for DVT in either lower extremity. Allied health notes reviewed: RT
[2021-08-15] MEDS: HEPARIN 5,000 UNIT/1 ML VIAL SUB-Q SCH (07:51)
[2021-08-15 09:15] VITALS: BP 133/84
[2021-08-15] MEDS: FAMOTIDINE 20 MG TAB PO SCH (13:21)
[2021-08-15] MEDS: levETIRAcetam 500 MG TAB PO SCH (13:21)
[2021-08-15] MEDS: SENNOSIDES/DOCUSATE SODIUM 8.6/50 MG TAB FEEDTUBE SCH (13:23)
--- NOTE | 2021-08-15 15:56 | Progress Note ---
Assessment and Plan 35-year-old -[place] male Morbidly Obese, with known history of obstructive sleep apnea on CPAP at home brought into the emergency room via EMS today for decreased responsiveness. Patient was said to be initially hypoxic but later became responsive after vigorous stimulation. Upon arrival in the emergency room patient denied any complaints. However after evaluation and in the process of being discharged from the emergency room patient was said to have a seizure and went into respiratory distress. He was subsequently intubated in the emergency room. Work-up in the emergency room today, toxicology screen was positive for marijuana and cocaine. Chest x-ray and CT scan of the head was unremarkable. Patient says Marijuana every day. Denies smoking cigaretts. Uses coaine. 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 Not . No children. No known drug allergies. Patient extubated, transfered to telemetry. Patient alert, awake. Resting on 2 litres O2. O2 saturation 93%. No acute respiratory distress at rest. Patient running low grade temp. No leukocytosis. Blood pressure 121/85, pulse 102, respirations 15. Nick virus PCR negative. Chest xray 08/10/21 reported Stable bibasilar densities. Venous doppler studies of legs done 08/14/21 reported Occlusive superficial thrombus within the left greater saphenous vein. No sonographic evidence for DVT in either lower extremity. Patient is on S/C Heparin and famotidine . In view of elevated D dimer and Occlusive superficial thrombus within the left greater saphenous vein. Recommend therapeutic dose of Lovenox or eliquis. CPAP 12 cm H2O stand by in the room to use it during night time and during sleep. Recommend to change to BIPAP 16/8, rate 16, FIO2 28%. I spent critical care time of 33 minutes, review the chart, examine the patient, review chest xray, lab results, talking to the nursing staff and respiratory therapy and work up plan of treatment in this critically ill patient. - Patient Problems (1) Acute on chronic respiratory failure with hypoxia and hypercapnia Current Visit: Yes Status: Acute Plan to address problem: O2 2 litres. Patient is on CPAP 12 cm H2O during sleep. Recommend BIPAP 16/8, rate 16, FIO2 28%. during sleep and for shortness of breath. (2) Body mass index (BMI) of 50-59.9 in adult Current Visit: Yes Status: Acute Plan to address problem: Recommend to loose weight. Exercise and diet. Nutritional evaluation for weight reduction diet. (3) History of sleep apnea Current Visit: Yes Status: Acute Plan to address problem: BIPAP 16/8, rate 16, FIO2 28%. Recommend to loose weight. Maintain sleep hygiene. Recommend not to drive or operate heavy equipment with symptoms of sleep apnea or sleepiness. Avoid alcohol, sedatives and narcotics. (4) Seizure disorder Current Visit: Yes Status: Acute Plan to address problem: Management as per primary care and neurology. (5) Drug abuse Current Visit: Yes Status: Acute Plan to address problem: Counseled to stop using Marijuana and Cocaine. (6) Elevated d-dimer Current Visit: Yes Status: Acute Plan to address problem: Recommend to get CAT scan of chest or V/Q scan. Recommend Therapeutic dose of lovenox or Eliquis. Subjective Date of service: 08/15/21 Principal diagnosis: seizure,drug abuse,morbid obesity Interval history: 35-year-old -[place] male Morbidly Obese, with known history of obstructive sleep apnea on CPAP at home brought into the emergency room via EMS today for decreased responsiveness. Patient was said to be initially hypoxic but later became responsive after vigorous stimulation. Upon arrival in the emergency room patient denied any complaints. However after evaluation and in the process of being discharged from the emergency room enrique vallejo was said to have a seizure and went into respiratory distress. He was subsequently intubated in the emergency room. Work-up in the emergency room today, toxicology screen was positive for marijua na and cocaine. Chest x-ray and CT scan of the head was unremarkable. Patient says Marijuana every day. Denies smoking cigaretts. Uses coaine. 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 Not . No children. No known drug allergies. Patient extubated, transfered to telemetry. Patient alert, awake. Resting on 2 litres O2. O2 saturation 93%. No acute respiratory distress at rest. Patient running low grade temp. No leukocytosis. Blood pressure 121/85, pulse 102, respirations 15. Nick virus PCR negative. Chest xray 08/10/21 reported Stable bibasilar densities. Venous doppler studies of legs done 08/14/21 reported Occlusive superficial thrombus within the left greater saphenous vein. No sonographic evidence for DVT in either lower extremity. Patient is on S/C Heparin and famotidine . In view of elevated D dimer and Occlusive superficial thrombus within the left greater saphenous vein. Recommend therapeutic dose of Lovenox or eliquis. CPAP 12 cm H2O stand by in the room to use it during night time and during sleep. Recommend to change to BIPAP 16/8, rate 16, FIO2 28%. Objective Vital Signs - 12hr 08/15/21 08/15/21 08/15/21 04:39 08:36 10:00 Temperature 96.5 F L 97.4 F L Pulse Rate 78 82 Respiratory 16 20 Rate Blood Pressure 120/73 133/84 O2 Sat by Pulse 100 93 93 Oximetry Constitutional: no acute distress, alert, other (morbidly obese) Eyes: non-icteric ENT: oropharynx moist Neck: supple, no JVD (large short neck) Effort: mildly labored Ascultation: Bilateral: diminished breath sounds Cardiovascular: regular rate and rhythm, other (S1,S2) Gastrointestinal: normoactive bowel sounds Integumentary: normal Extremities: no cyanosis, pulses normal Neurologic: normal mental status, non-focal exam, pupils equal and round, CN II- XII normal, motor strength normal and Psychiatric: mood appropriate, affect normal CBC and BMP: 08/12/21 08:11 08/12/21 08:11 ABG, PT/INR, D-dimer: ABG ABG pH 7.296 pH Units (7.350-7.450) L 08/10/21 04:47 ABG pCO2 61.8 mm Hg 08/10/21 04:47 ABG pO2 61.9 mm Hg (80.0-90.0) L 08/10/21 04:47 ABG O2 Saturation 89.5 % (95.0-99.0) L 08/10/21 04:47 PT/INR, D-dimer PT 14.0 Sec. (12.2-14.9) 08/08/21 19:17 INR 0.97 (0.87-1.13) 08/08/21 19:17 D-Dimer > 17299 ng/mlDDU (0-234) H 08/12/21 08:11 Abnormal lab findings: Abnormal Labs 08/08/21 08/08/21 08/08/21 19:10 19:10 19: RBC 5.09 H Hgb 15.3 H Hct 49.0 H MCV 96 H MCH MCHC 31 L RDW Plt Count Dukes % (Auto) Dukes # (Auto) Seg Neutrophils % D-Dimer ABG pH ABG pO2 ABG HCO3 ABG O2 Saturation ABG Base Excess Oxyhemoglobin Sodium 136 L Potassium Chloride 96.4 L Carbon Dioxide Creatinine Glucose 128 H Calcium Lactate Dehydrogenase Total Creatine Kinase 275 H C-Reactive Protein Albumin Salicylates < 0.3 L Acetaminophen 08/08/21 08/08/21 08/09/21 19:26 22:50 03:15 RBC Hgb Hct MCV 96 H MCH 34 H MCHC 35 H RDW 15.5 H Plt Count 124 L Dukes % (Auto) 9.2 H Dukes # (Auto) Seg Neutrophils % 73.0 H D-Dimer ABG pH ABG pO2 77.8 L ABG HCO3 29.8 H ABG O2 Saturation ABG Base Excess 4.7 H Oxyhemoglobin 94.6 L Sodium Potassium Chloride Carbon Dioxide Creatinine Glucose Calcium Lactate Dehydrogenase Total Creatine Kinase C-Reactive Protein Albumin Salicylates Acetaminophen 5.0 L 08/09/21 08/09/21 08/10/21 03:15 06:00 04:47 RBC Hgb Hct MCV MCH MCHC RDW Plt Count Dukes % (Auto) Dukes # (Auto) Seg Neutrophils % D-Dimer ABG pH 7.529 H 7.296 L ABG pO2 114.3 H 61.9 L ABG HCO3 28.3 H 29.4 H ABG O2 Saturation 89.5 L ABG Base Excess 5.7 H Oxyhemoglobin 87.6 L Sodium 129 L D Potassium 3.4 L Chloride 92.8 L Carbon Dioxide Creatinine 0.7 L Glucose Calcium 8.0 L D Lactate Dehydrogenase Total Creatine Kinase C-Reactive Protein Albumin Salicylates Acetaminophen 08/10/21 08/12/21 08/12/21 05:48 08:11 08:11 RBC Hgb Hct MCV 95 H MCH MCHC 31 L RDW 15.8 H Plt Count 109 L Dukes % (Auto) 10.5 H Dukes # (Auto) 1.0 H Seg Neutrophils % 74.2 H D-Dimer > 86286 H ABG pH ABG pO2 ABG HCO3 ABG O2 Saturation ABG Base Excess Oxyhemoglobin Sodium Potassium Chloride Carbon Dioxide Creatinine Glucose Calcium Lactate Dehydrogenase 331 H Total Creatine Kinase C-Reactive Protein 17.30 H Albumin Salicylates Acetaminophen 08/12/21 08/12/21 08:11 08:11 RBC Hgb Hct MCV 96 H MCH MCHC RDW 15.5 H Plt Count 68 L Dukes % (Auto) 9.6 H Dukes # (Auto) Seg Neutrophils % D-Dimer ABG pH ABG pO2 ABG HCO3 ABG O2 Saturation ABG Base Excess Oxyhemoglobin Sodium Potassium Chloride Carbon Dioxide 31 H Creatinine Glucose Calcium Lactate Dehydrogenase Total Creatine Kinase C-Reactive Protein Albumin 3.8 L Salicylates Acetaminophen Allied health notes reviewed: RT
--- NOTE | 2021-08-16 12:40 | Electrocardiograph Report ---
[facility] Test Date: 2021-08-09 Test Time: 01:08:57 Pat Name: MERCEDES ABBASI Department: Room: A474 Gender: M Board Catcher: KAMILLE : 1985 Requested By: ANILA SOTO Order Number: [id number] Reading MD: Prudencio Mix Measurements Intervals [place] Rate: 66 P: 20 DC: 127 QRS: 41 QRSD: 101 T: 30 QT: 465 QTc: 488 Interpretive Statements Sinus rhythm Compared to ECG 12/26/2020 17:46:52 No significant changes Electronically Signed On 08-16-2021 12:39:36 EST by Prudencio Mix
== END 2021-08-15 18:37 | disposition home or self-care (01) | DRG 208 ==
LOC: ED 15:58 → CC1 23:16 → 4A 08-10 17:23
PROVIDERS: ADMIT Hospitalist; ATTEND Student in an Organized Health Care Education/Training Program
PROC: 5A1945Z Respiratory Ventilation, 24-96 Consecutive Hours (ICD-10-PCS; principal; 2021-08-08)
PROC: 0BH17EZ Insertion of Endotracheal Airway into Trachea, Via Natural or Artificial Opening (ICD-10-PCS; 2021-08-08)
PROC: 5A09457 Assistance with Respiratory Ventilation, 24-96 Consecutive Hours, Continuous Positive Airway Pressure (ICD-10-PCS; 2021-08-12)
DX: J96.01 Acute respiratory failure with hypoxia (principal); E87.1 Hypo-osmolality and hyponatremia; Z68.43 Body mass index [BMI] 50.0-59.9, adult; J96.02 Acute respiratory failure with hypercapnia; E87.6 Hypokalemia; G40.901 Epilepsy, unspecified, not intractable, with status epilepticus; E87.8 Other disorders of electrolyte and fluid balance, not elsewhere classified; Z20.822 Contact with and (suspected) exposure to COVID-19; E66.01 Morbid (severe) obesity due to excess calories; F17.200 Nicotine dependence, unspecified, uncomplicated; F14.10 Cocaine abuse, uncomplicated; F12.10 Cannabis abuse, uncomplicated
CPT/HCPCS: 36415; 70450; 71045; 71046; 80048; 80053; 80074; 80307; 80320; 81001; 82550; 82728; 82803; 82947; 83615; 83735; 84145; 85025; 85027; 85379; 85610; 86140; 87641; 87806; 93005; 93970; 94002; 94003; 94660; 94760; 95819; G0378; J3480; J3490; J7060; Q0162; G0480; J1644; J1953; J2250; J2704; J3010; J7030; J7120; U0003